=== PATIENT | female | born 1960 | race Caucasian/White ===

== ENCOUNTER 2023-09-20 17:57 | Inpatient (IN) | payer MEDICAID, SELFPAY ==
[2023-09-20] VITALS (7 sets, daily range): BP systolic 105–159; BP diastolic 54–84; PULSE 93–128; RESP 15–30; TEMP 37.4–40.1; O2SAT 89–92; BMI 33.4
--- NOTE | ~2023-09-20 | XR_ITS ---
EXAMINATION: XR CHEST CLINICAL INFORMATION: Shortness of breath. COMPARISON: None available. TECHNIQUE: 2 views of the chest were obtained. FINDINGS: Midline tracheostomy. Left IJ CVC catheter with the tip projecting at the level of the cavoatrial junction. Slightly prominent cardiomediastinal silhouette. Multiple surgical clips overlying the right axillary region. Mild diffuse interstitial prominence and central vascular engorgement. No consolidation, pleural effusion or pneumothorax. No acute osseous findings. Visualized upper abdomen is within normal limits. XR/XR chest 2V IMPRESSION: 1. Mild interstitial prominence and central vascular engorgement are nonspecific and could be associated with pulmonary edema or atypical infection. 2. No focal consolidation. 3. No pleural effusion or pneumothorax.
--- NOTE | ~2023-09-20 | CT_ITS ---
EXAMINATION: CT MASTOIDS WITHOUT IV CONTRAST INDICATION: Purulent ear discharge. COMPARISON: None available. TECHNIQUE: Multidetector CT acquisitions of the head was obtained without IV contrast. This CT examination was performed using dose optimization techniques as appropriate, variously including the following: *Automated exposure control *Adjustment of mA and/or kV according to patient size (this includes techniques or standardized protocols for targeted exams where dose is matched to indication/reason for exam; i.e. extremities or head) *Use of iterative reconstruction technique FINDINGS: There is a large right mastoid effusion without osseous erosion and the right middle ear cavity is completely opacified. There is thickening of the right bony external auditory canal and some stranding within the right periauricular soft tissues. Imaging findings suggest right-sided otitis externa and right-sided otitis media. Small left mastoid effusion. Left middle ear cavity is clear. Inner ear structures are unremarkable bilaterally. No soft tissue abscess. There is mucosal thickening within the partially imaged right sphenoid sinus. CT/CT mastoid IMPRESSION: There is a large right mastoid effusion without osseous erosion and the right middle ear cavity is completely opacified. There is thickening of the right bony external auditory canal and some stranding within the right periauricular soft tissues. Imaging findings suggest right-sided otitis externa and right-sided otitis media. No soft tissue abscess. No evidence of mastoid coalescence.
--- NOTE | ~2023-09-20 | US_ITS ---
EXAMINATION: US VENOUS WITH DOPPLER UPPER EXTREMITY, RIGHT CLINICAL INFORMATION: Chronic lymphedema of right upper extremity. Discoloration. Swelling. COMPARISON: None available. TECHNIQUE: Ultrasound of the upper extremity is performed using compression sonography and color and pulse Doppler flow with assessment of augmentation of flow. There is also imaging and Doppler assessment of the jugular and subclavian veins. Spectral analysis with color-flow imaging is performed. FINDINGS: Respiratory variation, normal compression, and augmented flow are noted throughout the right upper extremity including the axillary, brachial, cubital, and radial and ulnar veins. There is normal flow in the internal jugular and subclavian veins. There is no visible deep or superficial thrombophlebitis. If the patient's symptoms progress, a followup ultrasound in 5 -7 days might be of value to exclude proximal propagation from a nonvisualized distal arm vein. US/US venous duplex UE RT IMPRESSION: No DVT demonstrated in the right upper extremity
--- NOTE | ~2023-09-20 | US_ITS ---
EXAMINATION: US VENOUS ULTRASOUND WITH DOPPLER LOWER EXTREMITY, RIGHT CLINICAL INFORMATION: Swelling COMPARISON: None available. TECHNIQUE: Ultrasound of the deep veins is performed from the hip to the calf with compression sonography and color and pulse Doppler assessment. Spectral analysis with color-flow imaging is performed. FINDINGS: There is normal venous compression and respiratory variation and augmented flow. The visualized common femoral vein, superficial femoral vein, profunda femoral vein, popliteal vein, and the trifurcation region shows no evidence of deep venous thrombosis. There is no significant popliteal fossa cyst. US/US venous duplex LE RT IMPRESSION: No DVT demonstrated in the right lower extremity.
--- NOTE | ~2023-09-20 | CT_ITS ---
EXAMINATION: CT CHEST WITHOUT CONTRAST CLINICAL INFORMATION: Aspiration pneumonia COMPARISON: Chest radiograph dated 09/20/2023. TECHNIQUE: Multidetector volumetric CT imaging of the chest was done. Axial MIP volume rendering provided. Sagittal and coronal reformatted images were obtained. This CT examination was performed using dose optimization techniques as appropriate, variously including the following: *Automated exposure control *Adjustment of mA and/or kV according to patient size (this includes techniques or standardized protocols for targeted exams where dose is matched to indication/reason for exam; i.e. extremities or head) *Use of iterative reconstruction technique DLP: 382 mGy-cm FINDINGS: LUNGS: There is a tracheostomy tube. The trachea and central airways are patent. There is right apical pleural-parenchymal thickening. No consolidative process. MEDIASTINUM: Heart size is normal. There is no pericardial effusion. There is no mediastinal or hilar adenopathy. CORONARY ARTERY CALCIFICATION: Coronary calcifications are noted. PLEURA: There is no pleural effusion. No pleural mass or thickening. AXILLA: No lymphadenopathy. There are surgical clips within the right axilla. UPPER ABDOMEN: Unremarkable. OSSEOUS STRUCTURES: No acute osseous abnormality. CT/CT chest wo IV con IMPRESSION: There is right apical pleural-parenchymal thickening. No consolidative process. No evidence of aspiration pneumonia. Fleischner guidelines were followed.
--- NOTE | ~2023-09-20 | XR_ITS ---
EXAMINATION: XR KNEE, RIGHT CLINICAL INFORMATION: Pain, no trauma. COMPARISON: None available. TECHNIQUE: Two views of the right knee. FINDINGS: No fracture or subluxation. Severe tricompartmental degenerative osteoarthritis with joint space narrowing, subcortical sclerosis and marginal osteophytes. Coarse calcific/ossific densities in the posterior compartment of the knee. Moderate joint effusion. XR/XR knee RT 2V IMPRESSION: 1. No acute fracture or malalignment. 2. Severe tricompartmental degenerative osteoarthritis. 3. Moderate joint effusion.
--- NOTE | 2023-09-20 18:36 | ECG_ITS ---
Test Reason : TACHYCARDIA Blood Pressure : / mmHG Vent. Rate : 105 BPM Atrial Rate : 105 BPM P-R Int : 132 ms QRS Dur : 080 ms QT Int : 348 ms P-R-T Axes : 023 -23 018 degrees QTc Int : 459 ms Sinus tachycardia Low voltage QRS Possible Inferior infarct , age undetermined Abnormal ECG No previous ECGs available Referred By: Alina Pack Electronically Signed By:DAVONTE YU MD
--- NOTE | 2023-09-20 19:00 | ED.GENADULT ---
HPI - General Adult General Chief complaint: General Medical Stated complaint: Cellulitis/Difficulty breathing Time Seen by Provider: 09/20/23 18:30 Source: patient and family Mode of arrival: ambulatory Limitations: no limitations History of Present Illness HPI narrative: This is a 63-year-old female who has a history of breast cancer with metastatic disease that was diagnosed in 2007 and treated at [facility] with surgical resection, chemotherapy and radiation who presents to the ER today with right arm swelling and redness as well as fever since yesterday. Patient reports that she has a chronic right breast wound from radiation. She does go to the [facility] at [facility] for care. She does have chronic lymphedema of the right upper extremity and has had subsequent cellulitis requiring admission with IV antibiotics. Yesterday she noticed increasing pain and swelling and redness to the right upper extremity and had chills last evening. This morning she had fever prompting her daughter to bring her in to be seen. She also complaining of right knee pain and swelling with she has had intermittently for several months with no known injury or trauma. She believes she is on orthopedic doctor who recommended a knee replacement but this was delayed due to her chronic medical conditions. She does have chronic shortness of breath but denies any chest pain or cough associated with this. 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 Related Data Home Medications Medication Instructions Recorded Confirmed albuterol sulfate 2.5 mg/3 mL 2.5 mg inhalation TID 09/20/23 09/20/23 (0.083 %) solution for nebulization arformoterol 15 mcg/2 mL solution 2 ml inhalation BID 09/20/23 09/20/23 for nebulization budesonide 0.5 mg/2 mL suspension 0.5 mg inhalation BID 09/20/23 09/20/23 for nebulization clonazepam 0.5 mg tablet 0.5 mg PO TID PRN anxiety 09/20/23 09/20/23 duloxetine 30 mg capsule,delayed 30 mg PO DAILY 09/20/23 09/20/23 release duloxetine 60 mg capsule,delayed 60 mg PO DAILY 09/20/23 09/20/23 release levothyroxine 100 mcg tablet 100 mcg PO DAILY 09/20/23 09/20/23 morphine 100 mg tablet,extended 100 mg PO BID 09/20/23 09/20/23 release omeprazole 20 mg capsule,delayed 20 mg PO DAILY 09/20/23 09/20/23 release oxycodone 10 mg tablet 20 mg PO Q4H PRN pain 09/20/23 09/20/23 silver sulfadiazine 1 % topical 1 appl topical DAILY 09/20/23 09/20/23 cream trazodone 150 mg tablet 150 mg PO BEDTIME 09/20/23 09/20/23 Allergies Allergy/AdvReac Type Severity Reaction Status Date / Time No Known Allergies Allergy Verified 09/20/23 18:05 Review of Systems Review of Systems: Yes all other systems are reviewed and are negative Constitutional: Constitutional: Reports no additional constitutional complaints, Reports body ache(s), Reports chills, Reports fever(s), Denies headache(s) and Denies weakness Eyes: Eyes: Reports no additional eye complaints and Denies change in vision ENT: Reports system reviewed and no additional complaints, except as documented, Denies dizziness, Denies headache(s), Denies nasal congestion, Denies nasal discharge and Denies neck pain Cardiovascular: Cardiovascular: Reports no additional cardiovascular complaints, Denies chest pain, Denies leg edema and Reports dyspnea Respiratory: Respiratory: Reports no additional respiratory complaints, Denies cough and Reports dyspnea Gastrointestinal: Gastrointestinal: Reports no additional gastrointestinal complaints, Denies abdominal pain, Denies diarrhea, Denies nausea and Denies vomiting Genitourinary: Genitourinary: Reports no additional female genitourinary complaints and Denies urinary incontinence Musculoskeletal: Musculoskeletal: Reports no additional musculoskeletal complaints, Denies back pain, Reports arthralgias, Reports joint swelling, Reports limited range of motion, Denies neck pain, Denies numbness and Denies tingling Integumentary/Breasts: Skin/Breast: Reports system reviewed and no additional complaints, except as docu and Reports rash Neurologic: Reports system reviewed and no additional complaints, except as documented, Denies Abnormal speech present, Denies dizziness, Denies headache(s), Denies numbness, Denies tingling and Denies weakness PMFSH Past Medical History Attestation statement: The following information was validated with the patient. Source: old records reviewed and nursing notes reviewed Social History Social History Smoked in Last 30 Days: No Use of substances other than those prescribed or required for medical reasons: No Advance Directives: No Advance Directives Information Provided: No Patient : No Physical Exam ED Vital Signs: Vital Signs - 24 hr 09/20/23 18:00 09/20/23 18:34 09/20/23 19:59 Temperature 103.0 F H 104.2 F H 102.7 F H Pulse Rate 128 H 120 H 109 H Respiratory Rate 24 H 30 H 21 H Blood Pressure 159/84 H 118/55 L Pulse Oximetry 92 89 L Oxygen Delivery Method Room Air Room Air 09/20/23 21:05 Temperature Pulse Rate 103 H Respiratory Rate 15 Blood Pressure 105/57 L Pulse Oximetry 92 Oxygen Delivery Method Room Air BMI result Body Mass Index 33.4 Const General: cooperative, healthy appearing, comfortable and no acute distress Orientation/consciousness: patient oriented x3 Limitations: no limitations HENMT Head: Yes normal to inspection Ears: hearing grossly normal bilaterally General nose exam: Normal external nose present Face and sinus: Yes normal facial exam Mouth: Normal oral and palatal mucosa present Throat: Yes posterior oropharynx normal Eyes General: appearance normal, both eyes and all related structures Pupils: Equal, round and reactive pupils present Neck Neck: Yes normal visual inspection Chest Chest/axillae images: 1. There is a wound seen but the edges are pink and there appears to be no infection in the wound bed. Resp Effort & Inspection: normal respiratory effort Auscultation: clear to auscultation bilaterally Cardio Rate: regular rate Rhythm: regular rhythm Peripheral pulses: Peripheral pulses 2+ throughout GI Inspection: Yes normal to inspection Palpation (GI): Soft to palpation and nontender Auscultation: normal bowel sounds Back/Spine/Pelvis Thoracic/Lumbar Spine: thoracic and lumbar spine normal to inspection Skin General skin exam: no rashes or lesions noted Neuro General: patient oriented x3, no focal motor deficits and normal sensation to monofilament Cranial nerves: Yes Equal, round and reactive pupils present Cognition (Neuro): normal cognition Speech: No Abnormal speech present Gait exam (Neuro): Normal gait present Motor exam (neuro): 5/5 motor strength present throughout Extrem Other: The entire right upper extremity has warmth, swelling, erythema. Normal distal sensation. Normal radial and ulnar pulses. Compartments are soft and compressible. Normal active and passive range of motion of the right upper extremity There is swelling to the right anterior knee. There is no posterior swelling. There is no calf swelling or pain. There are normal DP and PT pulses. Normal sensation. Normal active and passive range of motion of the right lower extremity. General: Yes normal to inspection Medications Administered Discontinued Medications Generic Name Dose Route Start Last Admin Trade Name Tati PRN Reason Stop Dose Admin Acetaminophen 975 mg 09/20/23 18:42 09/20/23 19:01 Acetaminophen 325 Mg Tablet PO 09/20/23 18:43 975 mg ONCE ONE Administration Hydromorphone HCl 0.5 mg 09/20/23 18:42 09/20/23 19:03 Hydromorphone Hcl 0.5 Mg/0.5 Ml Syringe IVPUSH 09/20/23 18:43 0.5 mg ONCE ONE Administration Protocol Sodium Chloride 1,000 mls @ 999 mls/hr 09/20/23 18:42 09/20/23 21:05 Ns IV 09/20/23 19:42 Infused .Q1H1M STA Infusion Piperacillin Sod/Tazobactam 50 mls @ 100 mls/hr 09/20/23 18:42 09/20/23 20:03 Sod 3.375 gm/ Sodium Chloride IV 09/20/23 19:11 Infused ONCE ONE Infusion Vancomycin HCl 2,000 mg in 500 mls @ 250 mls/hr 09/20/23 18:42 09/20/23 20:03 Vancomycin/Ns IV 09/20/23 20:41 250 mls/hr ONCE ONE Administration Medical Decision Making Medical Decision Making [facility] Narrative: 1840-This is a 63-year-old female who has a history of breast cancer with metastatic disease that was diagnosed in 2007 and treated at [facility] with surgical resection, chemotherapy and radiation who presents to the ER today with right arm swelling and redness as well as fever since yesterday. Patient reports that she has a chronic right breast wound from radiation. She does go to the Wound Center at [facility] for care. She does have chronic lymphedema of the right upper extremity and has had subsequent cellulitis requiring admission with IV antibiotics. Yesterday she noticed increasing pain and swelling and redness to the right upper extremity and had chills last evening. This morning she had fever prompting her daughter to bring her in to be seen. She also complaining of right knee pain and swelling with she has had intermittently for several months with no known injury or trauma. She believes she is on orthopedic doctor who recommended a knee replacement but this was delayed due to her chronic medical conditions. She does have chronic shortness of breath but denies any chest pain or cough associated with this. 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 Normal distal sensation. Normal radial and ulnar pulses. Compartments are soft and compressible. Normal active and passive range of motion of the right upper extremity There is swelling to the right anterior knee. There is no posterior swelling. There is no calf swelling or pain. There are normal DP and PT pulses. Normal sensation. Normal active and passive range of motion of the right lower extremity. On arrival patient is febrile and tachycardic. At this time infection is suspected. Labs including blood cultures and lactic acid are ordered, will need x-ray/ultrasound of right lower extremity. May need advanced imaging of right upper extremity. Will order antibiotic, fluids and APAP Differential Diagnosis Differential Diagnoses: The differential diagnosis associated with the presentation includes Cellulitis DVT Abscess Low suspicion for necrotizing fasciitis, compartment since Admission/Observation Consideration of admission/observation: Escalation of care including admission/observation considered Consult Healthcare Provider Management of the patient was discussed with: Hospitalist Dr Newman/Carolina Jacques-requesting CXR, CT chest w/o which they will order and review findings Lab Data MDM Lab Attestation statement: I reviewed the patient's lab results. 09/20/23 18:54 09/20/23 18:54 Labs: Lab Results 09/20/23 09/20/23 Range/Units 18:54 20:42 WBC 6.9 (4.8-10.8) X10*3/uL RBC 3.26 L (4.20-5.50) X10*6/uL Hgb 8.1 L (12.0-16.0) g/dl Hct 27.5 L (37.0-47.0) % MCV 84.4 (80.0-98.0) fL MCH 24.8 L (27.0-33.0) pg MCHC 29.5 L (31.0-35.0) g/dl RDW 17.7 H (11.0-16.0) % Plt Count 243 (160-400) X10*3/uL MPV 10.5 (9.4-12.3) fL Immature Gran % (Auto) 1.3 H (0.0-0.4) % Neut % (Auto) 92.9 H (45-73) % Lymph % (Auto) 3.2 L (20-40) % Power % (Auto) 2.0 (2-11) % Eos % (Auto) 0.3 (0-4) % Baso % (Auto) 0.3 (0-2) % Lymph # (Auto) 0.2 L (1.2-4.9) X10*3/uL Power # (Auto) 0.1 (0.1-1.2) X10*3/uL Eos # (Auto) 0.0 (0.0-0.4) X10*3/uL Baso # (Auto) 0.0 (0.0-0.2) X10*3/uL Abs Immat Gran (auto) 0.09 H (0.00-0.03) X10*3/uL Absolute Neuts (auto) 6.4 (2.0-8.3) x10*3/uL Absolute Nucleated RBC 0.000 (0.0-0.012) X10*3/uL Nucleated RBC % (auto) 0.0 (0.0-0.2) /100WBC Smear Tech's Comments VERIFIED PT 13.8 H (11.1-13.3) SEC INR 1.1 (0.9-1.1) Sodium 134 L (135-145) mmol/L Potassium 3.9 (3.3-5.1) mmol/L Chloride 103 (96-108) mmol/L Carbon Dioxide 22 (22-29) mmol/L Anion Gap 13 (12-20) BUN 13 (9-16) mg/dL Creatinine 1.35 (0.5-1.4) mg/dL Estim Creat Clear Calc 42.0 Estimated GFR 40 Random Glucose 114 (60-115) mg/dL Lactic Acid 2.1 H* 1.9 (0.5-2.0) mmol/L Calcium 8.6 (8.4-10.2) mg/dL Magnesium 1.7 (1.6-2.6) mg/dL Total Bilirubin 0.3 (0.0-1.0) mg/dL Direct Bilirubin 0.1 (0.0-0.5) mg/dL AST 13 (5-31) U/L ALT 6 (0-31) U/L Alkaline Phosphatase 106 (39-117) U/L Total Creatine Kinase 42 (26-140) U/L Troponin I High Sens 5.3 (<3.5-17.0) ng/L B-Natriuretic Peptide 90 (<100) pg/mL Total Protein 6.9 (6.5-8.0) g/dL Albumin 3.1 L (3.5-5.0) g/dL Independent Interpretation I performed an independent interpretation of an: EKG, Plain X-Ray and Ultrasound Interpretation: I independently reviewed the EKG which shows sinus tachycardia with a rate of 105, normal OK, normal QRS I independently reviewed the x-ray, US Radiology Impression Discussion of test interpretation with radiology: I have reviewed the radiologist's reading. Radiologist Impression: [place] [id number] Ultrasound Report Signed Patient: Harper Goode MR#: [id number] : 1960 Acct:[id number] Age/Sex: 63 / F ADM Date: 09/20/23 Loc: .ED Attending Dr: Ordering Physician: Alina Beck NP Date of Service: 09/20/23 Procedure(s): US venous duplex LE RT Accession Number(s): [id number] cc: RADAH ACEVES DO; Alina Beck NP~ EXAMINATION: US VENOUS ULTRASOUND WITH DOPPLER LOWER EXTREMITY, RIGHT CLINICAL INFORMATION: Swelling COMPARISON: None available. TECHNIQUE: Ultrasound of the deep veins is performed from the hip to the calf with compression sonography and color and pulse Doppler assessment. Spectral analysis with color-flow imaging is performed. FINDINGS: There is normal venous compression and respiratory variation and augmented flow. The visualized common femoral vein, superficial femoral vein, profunda femoral vein, popliteal vein, and the trifurcation region shows no evidence of deep venous thrombosis. There is no significant popliteal fossa cyst. US/US venous duplex LE RT IMPRESSION: No DVT demonstrated in the right lower extremity. [address] [address] XRay Report Signed Patient: Harper Goode MR#: [id number] : 1960 Acct:[id number] Age/Sex: 63 / F ADM Date: 09/20/23 Loc: HO.ED Attending Dr: Ordering Physician: Alina Beck NP Date of Service: 09/20/23 Procedure(s): XR chest 2V Accession Number(s): [id number] cc: RADHA ACEVES DO; Alina Beck SENIOR BUSINESS ANALYST~ EXAMINATION: XR CHEST CLINICAL INFORMATION: Shortness of breath. COMPARISON: None available. TECHNIQUE: 2 views of the chest were obtained. FINDINGS: Midline tracheostomy. Left IJ CVC catheter with the tip projecting at the level of the cavoatrial junction. Slightly prominent cardiomediastinal silhouette. Multiple surgical clips overlying the right axillary region. Mild diffuse interstitial prominence and central vascular engorgement. No consolidation, pleural effusion or pneumothorax. No acute osseous findings. Visualized upper abdomen is within normal limits. XR/XR chest 2V IMPRESSION: 1. Mild interstitial prominence and central vascular engorgement are nonspecific and could be associated with pulmonary edema or atypical infection. 2. No focal consolidation. 3. No pleural effusion or pneumothorax. [address] [address] XRay Report Signed Patient: Harper Goode MR#: [id number] : 1960 Acct:[id number] Age/Sex: 63 / F ADM Date: 09/20/23 Loc: HO.ED Attending Dr: Ordering Physician: Alina Beck NP Date of Service: 09/20/23 Procedure(s): XR knee RT 2V Accession Number(s): [id number] cc: RADHA ACEVES DO; Alina Beck SENIOR BUSINESS ANALYST~ EXAMINATION: XR KNEE, RIGHT CLINICAL INFORMATION: Pain, no trauma. COMPARISON: None available. TECHNIQUE: Two views of the right knee. FINDINGS: No fracture or subluxation. Severe tricompartmental degenerative osteoarthritis with joint space narrowing, subcortical sclerosis and marginal osteophytes. Coarse calcific/ossific densities in the posterior compartment of the knee. Moderate joint effusion. XR/XR knee RT 2V IMPRESSION: 1. No acute fracture or malalignment. 2. Severe tricompartmental degenerative osteoarthritis. 3. Moderate joint effusion. [address] [address] [address] Scan Report Signed Patient: Harper Goode MR#: [id number] : 1960 Acct:[id number] Age/Sex: 63 / F ADM Date: 09/20/23 Loc: HO.ED Attending Dr: Ordering Physician: Windy Newman MD Date of Service: 09/20/23 Procedure(s): CT chest wo IV con Accession Number(s): [id number] cc: RADHA ACEVES DO; Windy Newman MD~ EXAMINATION: CT CHEST WITHOUT CONTRAST CLINICAL INFORMATION: Aspiration pneumonia COMPARISON: Chest radiograph dated 09/20/2023. TECHNIQUE: Multidetector volumetric CT imaging of the chest was done. Axial MIP volume rendering provided. Sagittal and coronal reformatted images were obtained. This CT examination was performed using dose optimization techniques as appropriate, variously including the following: *Automated exposure control *Adjustment of mA and/or kV according to patient size (this includes techniques or standardized protocols for targeted exams where dose is matched to indication/reason for exam; i.e. extremities or head) *Use of iterative reconstruction technique DLP: 382 mGy-cm FINDINGS: LUNGS: There is a tracheostomy tube. The trachea and central airways are patent. There is right apical pleural-parenchymal thickening. No consolidative process. MEDIASTINUM: Heart size is normal. There is no pericardial effusion. There is no mediastinal or hilar adenopathy. CORONARY ARTERY CALCIFICATION: Coronary calcifications are noted. PLEURA: There is no pleural effusion. No pleural mass or thickening. AXILLA: No lymphadenopathy. There are surgical clips within the right axilla. UPPER ABDOMEN: Unremarkable. OSSEOUS STRUCTURES: No acute osseous abnormality. CT/CT chest wo IV con IMPRESSION: There is right apical pleural-parenchymal thickening. No consolidative process. No evidence of aspiration pneumonia. Fleischner guidelines were followed. Independent Historian Clinical information obtained from an independent historian. History obtained from or confirmed by: Other (daughter ) Critical Care Time Critical Care Time Critical Care Time: Yes Total Critical Care Time: 90 Attestation: Discussion with hospitalist for admission Discharge Plan Discharge Clinical Impression: Cellulitis of arm, right, Anemia, Elevated lactic acid level Patient Disposition: Admitted As Inpatient
[2023-09-20] MEDS: Acetaminophen 325 MG TABLET 975 MG PO (19:01)
[2023-09-20] MEDS: HYDROmorphone HCl 0.5 MG/0.5 ML SYRINGE IVPUSH (19:03)
[2023-09-20] MEDS: 0.9 % Sodium Chloride 1,000 ML 999 ML IV (19:05)
[2023-09-20] MEDS: Piperacillin Sodium/Tazobactam 3.375 GM in 0.9 % Sodium Chloride 50 ML IV (19:05)
[2023-09-20 19:16] LABS: Basophils Percent Auto 0.3 % (0-2); Eosinophils Percent Auto 0.3 % (0-4); Hematocrit 27.5 % (37.0-47.0); Hemoglobin 8.1 g/dl (12.0-16.0); Imm Gran Abs Auto 0.09 X10*3/uL (0.00-0.03); Imm Gran Pct Auto 1.3 % (0.0-0.4); Lymphocytes Absolute Auto 0.2 X10*3/uL (1.2-4.9); Lymphocytes Percent Auto 3.2 % (20-40); MANUAL DIFF FLAG SCAN; Mean Corpuscular HGB Conc 29.5 g/dl (31.0-35.0); Mean Corpuscular Hemoglobin 24.8 pg (27.0-33.0); Mean Corpuscular Volume 84.4 fL (80.0-98.0); Mean Platelet Volume 10.5 fL (9.4-12.3); Monocytes Absolute Auto 0.1 X10*3/uL (0.1-1.2); Neutrophils Absolute Auto 6.4 x10*3/uL (2.0-8.3); Neutrophils Percent Auto 92.9 % (45-73); Platelet Count 243 X10*3/uL (160-400); Red Blood Count 3.26 X10*6/uL (4.20-5.50); Red Cell Distribution Width 17.7 % (11.0-16.0); SCAN SMEAR FLAG 1; White Blood Count 6.9 X10*3/uL (4.8-10.8)
[2023-09-20 19:20] LABS: INTERNATIONAL NORM RATIO 1.1 (0.9-1.1); Prothrombin Time 13.8 SEC (11.1-13.3)
[2023-09-20 19:21] LABS: Alanine Aminotransferase 6 U/L (0-31); Albumin Level 3.1 g/dL (3.5-5.0); Alkaline Phosphatase 106 U/L (39-117); Anion Gap 13 (12-20); Aspartate Amino Transferase 13 U/L (5-31); Bilirubin Direct 0.1 mg/dL (0.0-0.5); Bilirubin Total 0.3 mg/dL (0.0-1.0); Blood Urea Nitrogen 13 mg/dL (9-16); Calcium 8.6 mg/dL (8.4-10.2); Carbon Dioxide 22 mmol/L (22-29); Chloride 103 mmol/L (96-108); Estimated Glomerular Filt Rate 40; Glucose Random 114 mg/dL (60-115); Magnesium 1.7 mg/dL (1.6-2.6); Potassium 3.9 mmol/L (3.3-5.1); Sodium 134 mmol/L (135-145); Total Protein 6.9 g/dL (6.5-8.0)
[2023-09-20 19:28] LABS: Troponin-I High Sensitivity 5.3 ng/L (<3.5-17.0)
[2023-09-20 19:31] LABS: Lactic Acid 2.1 mmol/L (0.5-2.0)
[2023-09-20 19:45] LABS: SLIDE REVIEW VERIFIED
[2023-09-20] MEDS: vancomycin/NS 2,000 MG/500 ML PLAST..BAG 250 MG IV (20:03)
--- NOTE | 2023-09-20 20:10 | PC.NURSE ---
Assumed care of the pt at 1900. Pt resting comfortably in bed. Labs sent and 20g IV in the left forearm. Pt is A&Ox4, GCS 15, with warm skin. Pt given tylenol for fever with slight improvement in temperature. Pt has a trach that requires frequent clears from pt, occasionally resulting in decreased O2. Plan is for pt to be admitted for sepsis/cellulitis of right arm.
[2023-09-20 20:59] LABS: Lactic Acid 1.9 mmol/L (0.5-2.0)
[2023-09-20 21:03] LABS: Reflex Lactate? Lactic Acid Added
[2023-09-20 21:15] LABS: B Type Natriuretic Peptide 90 pg/mL (<100)
--- NOTE | 2023-09-20 21:20 | PHA.MEDREC ---
Pharmacy Consult ? Medication Reconciliation Pharmacy has completed the medication reconciliation.
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
[2023-09-20] MEDS: Albuterol Sulfate (0.083%) 2.5 MG/3 ML VIAL.NEB INHALE (22:15)
[2023-09-20] MEDS: Budesonide 0.5 MG/2 ML AMPUL.NEB INHALE (22:16)
--- NOTE | 2023-09-20 22:33 | PHA.PROG ---
Admission Date/Time: September 20, 2023 21:53 Indication: OTHER Weight in k.286 kg Adjusted body weight in Kg: [place] body weight in Kg: Obesity Dosing Indication % IBW: Serum Creatinine - Last 168 Hours 09/20/23 18:54 Creatinine 1.35 Estimated CrCl and GFR - Last 168 Hours 09/20/23 18:54 Estim Creat Clear Calc 42.0 Estimated GFR 40 Vancomycin Loading Dose: 2000 MG Current Vancomycin Dosing Regimen: 1250 MG Q24H Vancomycin Monitoring using AUC goal of 400 - 600 range with trough as surrogate marker: AUC 550, TROUGH 15.5 Date and Time for next Vancomycin Level to be drawn: 09/21 @1900 Pharmacist Comments on Vancomycin Plan: Vancomycin dosing will take advantage of [employer] as a clinical decision support tool that uses Bayesian modeling to calculate individual patient's pharmacokinetic parameters and forecast the patient's drug concentration time course with the target goal AUC 24 range of 400 - 600 mg/L/hr.
[2023-09-20] MEDS: Enoxaparin Sodium 40 MG/0.4 ML SYRINGE SUBCUT (22:40)
[2023-09-20] MEDS: traZODone HCL 50 MG TABLET 150 MG PO (22:41)
[2023-09-20] MEDS: Morphine Sulfate ER 30 MG TABLET.ER 90 MG PO (22:41)
[2023-09-20 23:08] LABS: ~Lactic Acid-LAB USE ONLY 1.1 mmol/L (0.5-2.0)
[2023-09-21] VITALS (7 sets, daily range): BP systolic 98–142; BP diastolic 53–88; PULSE 88–107; RESP 18–20; TEMP 36.4–37.2; O2SAT 93–99; BMI 35.8
[2023-09-21] MEDS: 0.9 % Sodium Chloride Flush 3 ML SYRINGE IVFLUSH ×4 (00:05→21:41)
[2023-09-21] MEDS: Piperacillin Sodium/Tazobactam 3.375 GM in 0.9 % Sodium Chloride 50 ML IV ×4 (03:21→20:07)
[2023-09-21 03:27] LABS: Influenza A PCR NEGATIVE (Negative); Influenza B PCR NEGATIVE (Negative); Resp Syncy Virus RNA Qual PCR NEGATIVE (Negative); SARS COV2 PCR INHOUSE NEGATIVE (Negative)
[2023-09-21] MEDS: Levothyroxine Sodium 100 MCG TABLET PO (05:43)
[2023-09-21] MEDS: Omeprazole 20 MG CAPSULE.DR PO (06:01)
[2023-09-21] MEDS: oxyCODONE HCl Immed Release 5 MG TABLET 20 MG PO ×2 (06:01→14:45)
[2023-09-21 06:05] LABS: MANUAL DIFF FLAG NO
[2023-09-21 06:31] LABS: Anion Gap 11 (12-20); Blood Urea Nitrogen 11 mg/dL (9-16); Calcium 8.1 mg/dL (8.4-10.2); Carbon Dioxide 20 mmol/L (22-29); Chloride 108 mmol/L (96-108); Creatinine Clr Calc Pharmacy 51.1; Estimated Glomerular Filt Rate 48; Glucose Random 95 mg/dL (60-115); Potassium 4.1 mmol/L (3.3-5.1); Sodium 135 mmol/L (135-145)
[2023-09-21 06:56] LABS: Basophils Percent Auto 0.2 % (0-2); Eosinophils Percent Auto 0.2 % (0-4); Hemoglobin 7.5 g/dl (12.0-16.0); Imm Gran Abs Auto 0.02 X10*3/uL (0.00-0.03); Imm Gran Pct Auto 0.5 % (0.0-0.4); Lymphocytes Absolute Auto 0.3 X10*3/uL (1.2-4.9); Mean Corpuscular HGB Conc 28.8 g/dl (31.0-35.0); Mean Corpuscular Hemoglobin 24.8 pg (27.0-33.0); Mean Corpuscular Volume 85.8 fL (80.0-98.0); Monocytes Absolute Auto 0.2 X10*3/uL (0.1-1.2); Monocytes Percent Auto 5.8 % (2-11); Neutrophils Absolute Auto 3.5 x10*3/uL (2.0-8.3); Neutrophils Percent Auto 85.3 % (45-73); Platelet Count 203 X10*3/uL (160-400); Red Blood Count 3.03 X10*6/uL (4.20-5.50); Red Cell Distribution Width 18.1 % (11.0-16.0); White Blood Count 4.1 X10*3/uL (4.8-10.8)
--- NOTE | 2023-09-21 07:26 | HO.PM.IMPN ---
Subjective Subjective Date of Service: 09/21/23 Interval History: f/u on sepsis d/t cellulitis and otitis media/externa redness is better, earahe is better, no fever Physical Exam Vital Signs: Vital Signs: Last Vital Signs Temp 99.0 F 09/21/23 03:55 Pulse 90 09/21/23 03:55 Resp 20 09/21/23 03:55 BP 109/71 09/21/23 03:55 Pulse Ox 94 09/21/23 03:55 O2 Del Method Nasal Cannula 09/21/23 03:55 O2 Flow Rate 2 09/21/23 03:55 BMI result Body Mass Index 35.8 Constitutional - Awake and Alert, No apparent distress Eyes - PERRLA, EOMI Ear - Tednerness with manipulation of the tragus/pinna R ear with copious purulent drainage R canal with limited visual of the TM Cardiovascular - S1S2, RRR, No edema Respiratory - Normal lung expansion, Normal respiratory effort, No respiratory distress, scattered expiratory wheezes Chest - s/p bilateral mastectomy. Chronic wound R axilla with pink edges, clean appearing without any active drainage Gastrointestinal - NT / ND; +BS; No rebound or guarding Extremities - no calf tenderness bilaterally, no swelling Skin - Warm/Dry Neurological - Alert & oriented x3 Psychological - Appropriate affect Objective Data Active Medications Acetaminophen (Acetaminophen 325 Mg Tablet) 650 mg PO Q6H PRN PRN Reason: Pain, Mild (Pain Scale 1-3) Albuterol Sulfate (Albuterol Sulfate (0.083%) 2.5 Mg/3 Ml Vial.Neb) 2.5 mg INHALE TID [facility] Last Admin: 09/20/23 22:15 Dose: 2.5 mg Documented By: BERENICE Budesonide (Budesonide 0.5 Mg/2 Ml Ampul.Neb) 0.5 mg INHALE BID [facility] Last Admin: 09/20/23 22:16 Dose: 0.5 mg Documented By: BERENICE Clonazepam (Clonazepam 0.5 Mg Tablet) 0.5 mg PO TID PRN PRN Reason: anxiety Duloxetine HCl (Duloxetine Hcl 30 Mg Capsule.) 30 mg PO DAILY [facility] Duloxetine HCl (Duloxetine Hcl 60 Mg Capsule.) 60 mg PO DAILY [facility] Enoxaparin Sodium (Enoxaparin Sodium 40 Mg/0.4 Ml Syringe) 40 mg SUBCUT Q24H [facility] Last Admin: 09/20/23 22:40 Dose: 40 mg Documented By: SALOME Vancomycin HCl 1,250 mg/ (Sodium Chloride) 250 mls @ 166.667 mls/hr IV Q24H [facility] Piperacillin Sod/Tazobactam (Sod 3.375 gm/ Sodium Chloride) 50 mls @ 100 mls/hr IV Q6H [facility] Last Infusion: 09/21/23 03:51 Dose: Infused Documented By: RITA Levothyroxine Sodium (Levothyroxine Sodium 100 Mcg Tablet) 100 mcg PO DAILY@0600 [facility] Last Admin: 09/21/23 05:43 Dose: 100 mcg Documented By: RITA Morphine Sulfate (Morphine Sulfate Er 30 Mg Tablet.Er) 90 mg PO BID [facility] Last Admin: 09/20/23 22:41 Dose: 90 mg Documented By: SALOME Neomycin/Polymyxin/Hydrocortisone (Neomycin/Polymyxin/Hc Otic Priti 10 Ml Drpbtl) 3 drop EAR-RIGHT QID [facility] Last Admin: 09/20/23 22:41 Dose: Not Given Documented By: SALOME Non-Admin Reason: Med Not Available Non-Formulary Medication (Arformoterol) 2 ml INHALE BID [facility] Omeprazole (Omeprazole 20 Mg Capsule.Dr) 20 mg PO DAILY@0630 [facility] Last Admin: 09/21/23 06:01 Dose: 20 mg Documented By: RITA Ondansetron HCl (Ondansetron Hcl 4 Mg/2 Ml Vial) 4 mg IVPUSH Q8H PRN PRN Reason: Nausea and Vomiting Oxycodone HCl (Oxycodone Hcl Immed Release 5 Mg Tablet) 20 mg PO Q4H PRN PRN Reason: Pain, Severe (Pain Scale 7-10) Last Admin: 09/21/23 06:01 Dose: 20 mg Documented By: RITA Pharmacy Consult (Consult Rx Vancomycin Dosing) 1 each MISCELLANE DAILY PRN PRN Reason: Consult order Senna (Sennosides 8.6 Mg Tablet) 17.2 mg PO BEDTIME PRN PRN Reason: Constipation Silver Sulfadiazine (Silver Sulfadiazine 1 % Cream 20 Gm Tube) 1 appl TOPICAL DAILY [facility] Sodium Chloride (0.9 % Sodium Chloride Flush 3 Ml Syringe) 3 ml IVFLUSH QSHIFT [facility] Last Admin: 09/21/23 00:05 Dose: 3 ml Documented By: SALOME Trazodone HCl (Trazodone Hcl 50 Mg Tablet) 150 mg PO BEDTIME [facility] Last Admin: 09/20/23 22:41 Dose: 150 mg Documented By: SALOME Labs 09/21/23 05:38 09/21/23 05:38 Labs: Laboratory Results - last 24 hr 09/20/23 09/20/23 09/20/23 18:54 20:42 22:52 MCV 84.4 MCH 24.8 L MCHC 29.5 L RDW 17.7 H Plt Count 243 MPV 10.5 Immature Gran % (Auto) 1.3 H Neut % (Auto) 92.9 H Lymph % (Auto) 3.2 L [place] % (Auto) 2.0 Eos % (Auto) 0.3 Baso % (Auto) 0.3 Lymph # (Auto) 0.2 L [place] # (Auto) 0.1 Eos # (Auto) 0.0 Baso # (Auto) 0.0 Abs Immat Gran (auto) 0.09 H Absolute Neuts (auto) 6.4 Absolute Nucleated RBC 0.000 Nucleated RBC % (auto) 0.0 Smear Tech's Comments VERIFIED PT 13.8 H INR 1.1 Anion Gap 13 Estim Creat Clear Calc 42.0 Estimated GFR 40 Random Glucose 114 Lactic Acid 2.1 H* 1.9 Lactic Acid F/U @ 2Hr 1.1 Calcium 8.6 Magnesium 1.7 Total Bilirubin 0.3 Direct Bilirubin 0.1 AST 13 ALT 6 Alkaline Phosphatase 106 Total Creatine Kinase 42 Troponin I High Sens 5.3 B-Natriuretic Peptide 90 Total Protein 6.9 Albumin 3.1 L Influenza Type A (PCR) Influenza Type B (PCR) RSV RNA Qual (PCR) SARS-CoV-2 RNA (RT-PCR) 09/21/23 09/21/23 02:45 05:38 MCV 85.8 MCH 24.8 L MCHC 28.8 L RDW 18.1 H Plt Count 203 MPV 11.0 Immature Gran % (Auto) 0.5 H Neut % (Auto) 85.3 H Lymph % (Auto) 8.0 L [place] % (Auto) 5.8 Eos % (Auto) 0.2 Baso % (Auto) 0.2 Lymph # (Auto) 0.3 L [place] # (Auto) 0.2 Eos # (Auto) 0.0 Baso # (Auto) 0.0 Abs Immat Gran (auto) 0.02 Absolute Neuts (auto) 3.5 Absolute Nucleated RBC 0.000 Nucleated RBC % (auto) 0.0 Smear Tech's Comments PT INR Anion Gap 11 L Estim Creat Clear Calc 51.1 Estimated GFR 48 Random Glucose 95 Lactic Acid Lactic Acid F/U @ 2Hr Calcium 8.1 L Magnesium Total Bilirubin Direct Bilirubin AST ALT Alkaline Phosphatase Total Creatine Kinase Troponin I High Sens B-Natriuretic Peptide Total Protein Albumin Influenza Type A (PCR) NEGATIVE Influenza Type B (PCR) NEGATIVE RSV RNA Qual (PCR) NEGATIVE SARS-CoV-2 RNA (RT-PCR) NEGATIVE Assessment and Plan (1) Severe sepsis: Status: Acute (2) Acute otitis externa: Status: Acute (3) Acute otitis media: Status: Acute Plan 63-year-old female who has a history of breast cancer with metastatic disease (diagnosed in 2007 and treated at [facility] with surgical resection, chemotherapy and radiation) with 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 (Initial BP elevated likely r/t pain not severe sepsis) No septic shock or other end-organ damage -IV vancomycin and Zosyn 09/19 -follow CBC, cultures # acute cellulitis of the right upper extremity -venous duplex negative for DVT -IV vancomycin Zosyn (initiated 09/19) -ID consult -follow CBC, cultures # acute otitis media/otitis externa with history of chronic suppurative otitis media with history of irradiated tympanoplasty -IV vancomycin/Zosyn, topical corticosporin (initiated 09/19) -reports previously has required copious flushing of R canal- outpt follow up with ENT unless symptoms not improving #CKD stage 3 -renal function at baseline #Normocytic anemia- unclear chronicity, suspect chronic r/t chronic disease -h/h above transfusion threshold -follow CBC # hypertension, BP nl -not on antihypertensives # chronic pain disorder -continue MS Contin, oxycodone p.r.n. # chronic burn/Wound right axilla s/p radiation therapy -apply Silvadene to wound daily and cover with dry dressing -wound RN consult # hypothyroidism -continue Synthroid # GERD -PPI # COPD -no acute exacerbation -continue maintenance inhalers, albuterol p.r.n. DVT prophylaxis-Lovenox Full code need for inpatient: for management of severe sepsis secondary to extensive cellulitis of the right upper extremity encompassing nearly 100% of the extremity as well as severe right-sided otitis media/externa with copious purulent drainage requiring broad-spectrum IV antibiotics as well as close monitoring Quality Stroke Does the patient have a stroke diagnosis?: No VTE Prior VTE?: No VTE Risk Level:: Medical - moderate - high VTE Device Contraindication: Treatment Not Indicated VTE Drug Contraindication: N/A - Med Ordered
--- NOTE | 2023-09-21 08:04 | HE.PHANOTE ---
Vancomcyin Dosing Slight improvement in SCr. Level is still predict the be therapeutic. Continue current regimen, level shanell 09/21 @ [id number]. Deep MorrisD
[2023-09-21] MEDS: Budesonide 0.5 MG/2 ML AMPUL.NEB INHALE (08:25)
[2023-09-21] MEDS: Albuterol Sulfate (0.083%) 2.5 MG/3 ML VIAL.NEB INHALE ×2 (08:25→15:22)
[2023-09-21] MEDS: Morphine Sulfate ER 30 MG TABLET.ER 90 MG PO ×2 (08:58→20:53)
[2023-09-21] MEDS: DULoxetine HCl 60 MG CAPSULE.DR PO (08:59)
[2023-09-21] MEDS: DULoxetine HCl 30 MG CAPSULE.DR PO (08:59)
[2023-09-21] MEDS: clonazePAM 0.5 MG TABLET PO ×2 (09:11→21:30)
[2023-09-21] MEDS: Silver Sulfadiazine 1 % Cream 20 GM TUBE 1 APPL TOPICAL (11:12)
[2023-09-21] MEDS: NeoMYCIN/Polymyxin/HC Otic Sus 10 ML DRPBTL 3 DROP EAR-RIGHT ×4 (11:12→20:55)
[2023-09-21] MEDS: vancomycin HCL 1,250 MG in 0.9 % Sodium Chloride 250 ML 166.67 MG IV (20:50)
[2023-09-21] MEDS: traZODone HCL 50 MG TABLET 150 MG PO (20:53)
[2023-09-21] MEDS: Enoxaparin Sodium 40 MG/0.4 ML SYRINGE SUBCUT (21:30)
[2023-09-22] VITALS (8 sets, daily range): BP systolic 88–129; BP diastolic 46–73; PULSE 68–96; RESP 18; TEMP 35.9–36.3; O2SAT 92–99
[2023-09-22] MEDS: Piperacillin Sodium/Tazobactam 3.375 GM in 0.9 % Sodium Chloride 50 ML IV ×4 (02:35→21:44)
[2023-09-22] MEDS: Levothyroxine Sodium 100 MCG TABLET PO (05:15)
[2023-09-22] MEDS: oxyCODONE HCl Immed Release 5 MG TABLET 20 MG PO ×3 (06:06→16:13)
[2023-09-22] MEDS: Omeprazole 20 MG CAPSULE.DR PO (06:06)
[2023-09-22 06:24] LABS: Creatinine Clr Calc Pharmacy 54.4; Estimated Glomerular Filt Rate 52
[2023-09-22 07:56] LABS: Anion Gap 13 (12-20)
[2023-09-22 07:59] LABS: Blood Urea Nitrogen 10 mg/dL (9-16); Calcium 8.4 mg/dL (8.4-10.2); Carbon Dioxide 24 mmol/L (22-29); Chloride 107 mmol/L (96-108); Glucose Random 98 mg/dL (60-115); Potassium 4.2 mmol/L (3.3-5.1); Sodium 140 mmol/L (135-145)
[2023-09-22] MEDS: Albuterol Sulfate (0.083%) 2.5 MG/3 ML VIAL.NEB INHALE ×3 (08:11→19:56)
[2023-09-22] MEDS: Budesonide 0.5 MG/2 ML AMPUL.NEB INHALE ×2 (08:11→19:56)
[2023-09-22] MEDS: DULoxetine HCl 60 MG CAPSULE.DR PO (08:34)
[2023-09-22] MEDS: Morphine Sulfate ER 30 MG TABLET.ER 90 MG PO ×2 (08:34→21:43)
[2023-09-22] MEDS: 0.9 % Sodium Chloride Flush 3 ML SYRINGE IVFLUSH ×3 (08:34→20:02)
[2023-09-22] MEDS: DULoxetine HCl 30 MG CAPSULE.DR PO (08:34)
[2023-09-22] MEDS: NeoMYCIN/Polymyxin/HC Otic Sus 10 ML DRPBTL 3 DROP EAR-RIGHT ×4 (08:40→21:51)
[2023-09-22] MEDS: Silver Sulfadiazine 1 % Cream 20 GM TUBE 1 APPL TOPICAL (10:39)
--- NOTE | 2023-09-22 10:59 | HO.PM.IMPN ---
Subjective Subjective Date of Service: 09/22/23 Interval History: f/u on sepsis d/t cellulitis and otitis media/externa she notes that swelling and redness is better. Physical Exam Vital Signs: Vital Signs: Last Vital Signs Temp 97.4 F 09/22/23 08:00 Pulse 68 09/22/23 08:14 Resp 18 09/22/23 08:14 BP 129/73 09/22/23 08:00 Pulse Ox 98 09/22/23 08:00 O2 Del Method Nasal Cannula 09/22/23 08:00 O2 Flow Rate 2.0 09/22/23 08:00 BMI result Body Mass Index 35.8 Constitutional - Awake and Alert, No apparent distress Eyes - PERRLA, EOMI Ear - Tednerness with manipulation of the tragus/pinna R ear with copious purulent drainage R canal with limited visual of the TM Cardiovascular - S1S2, RRR, No edema Respiratory - Normal lung expansion, Normal respiratory effort, No respiratory distress, scattered expiratory wheezes Chest - s/p bilateral mastectomy. Chronic wound R axilla with pink edges, clean appearing without any active drainage Gastrointestinal - NT / ND; +BS; No rebound or guarding Extremities - no calf tenderness bilaterally, no swelling Skin - Warm/Dry , compare to yesterday, redness is better Neurological - Alert & oriented x3 Psychological - Appropriate affect Objective Data Active Medications Acetaminophen (Acetaminophen 325 Mg Tablet) 650 mg PO Q6H PRN PRN Reason: Pain, Mild (Pain Scale 1-3) Albuterol Sulfate (Albuterol Sulfate (0.083%) 2.5 Mg/3 Ml Vial.Neb) 2.5 mg INHALE TID [facility] Last Admin: 09/22/23 08:11 Dose: 2.5 mg Documented By: PATRIZIA Budesonide (Budesonide 0.5 Mg/2 Ml Ampul.Neb) 0.5 mg INHALE BID [facility] Last Admin: 09/22/23 08:11 Dose: 0.5 mg Documented By: PATRIZIA Clonazepam (Clonazepam 0.5 Mg Tablet) 0.5 mg PO TID PRN PRN Reason: anxiety Last Admin: 09/21/23 21:30 Dose: 0.5 mg Documented By: RITA Duloxetine HCl (Duloxetine Hcl 30 Mg Capsule.) 30 mg PO DAILY [facility] Last Admin: 09/22/23 08:34 Dose: 30 mg Documented By: OTONIEL Duloxetine HCl (Duloxetine Hcl 60 Mg Capsule.) 60 mg PO DAILY [facility] Last Admin: 09/22/23 08:34 Dose: 60 mg Documented By: OTONIEL Enoxaparin Sodium (Enoxaparin Sodium 40 Mg/0.4 Ml Syringe) 40 mg SUBCUT Q24H [facility] Last Admin: 09/21/23 21:30 Dose: 40 mg Documented By: RITA Vancomycin HCl 1,250 mg/ (Sodium Chloride) 250 mls @ 166.667 mls/hr IV Q24H [facility] Last Infusion: 09/21/23 22:20 Dose: Infused Documented By: RITA Piperacillin Sod/Tazobactam (Sod 3.375 gm/ Sodium Chloride) 50 mls @ 100 mls/hr IV Q6H [facility] Last Infusion: 09/22/23 09:13 Dose: Infused Documented By: OTONIEL Levothyroxine Sodium (Levothyroxine Sodium 100 Mcg Tablet) 100 mcg PO DAILY@0600 [facility] Last Admin: 09/22/23 05:15 Dose: 100 mcg Documented By: RITA Morphine Sulfate (Morphine Sulfate Er 30 Mg Tablet.Er) 90 mg PO BID [facility] Last Admin: 09/22/23 08:34 Dose: 90 mg Documented By: OTONIEL Neomycin/Polymyxin/Hydrocortisone (Neomycin/Polymyxin/Hc Otic Priti 10 Ml Drpbtl) 3 drop EAR-RIGHT QID [facility] Last Admin: 09/22/23 08:40 Dose: 3 drop Documented By: OTONIEL Non-Formulary Medication (Arformoterol) 2 ml INHALE BID [facility] Omeprazole (Omeprazole 20 Mg Capsule.) 20 mg PO DAILY@0630 [facility] Last Admin: 09/22/23 06:06 Dose: 20 mg Documented By: RITA Ondansetron HCl (Ondansetron Hcl 4 Mg/2 Ml Vial) 4 mg IVPUSH Q8H PRN PRN Reason: Nausea and Vomiting Oxycodone HCl (Oxycodone Hcl Immed Release 5 Mg Tablet) 20 mg PO Q4H PRN PRN Reason: Pain, Severe (Pain Scale 7-10) Last Admin: 09/22/23 10:37 Dose: 20 mg Documented By: OTONIEL Pharmacy Consult (Consult Rx Vancomycin Dosing) 1 each MISCELLANE DAILY PRN PRN Reason: Consult order Senna (Sennosides 8.6 Mg Tablet) 17.2 mg PO BEDTIME PRN PRN Reason: Constipation Silver Sulfadiazine (Silver Sulfadiazine 1 % Cream 20 Gm Tube) 1 appl TOPICAL DAILY [facility] Last Admin: 09/22/23 10:39 Dose: 1 appl Documented By: OTONIEL Sodium Chloride (0.9 % Sodium Chloride Flush 3 Ml Syringe) 3 ml IVFLUSH QSHIFT [facility] Last Admin: 09/22/23 08:34 Dose: 3 ml Documented By: OTONIEL Trazodone HCl (Trazodone Hcl 50 Mg Tablet) 150 mg PO BEDTIME [facility] Last Admin: 09/21/23 20:53 Dose: 150 mg Documented By: RITA Labs 09/21/23 05:38 09/22/23 05:11 Labs: Laboratory Results - last 24 hr 09/22/23 05:11 Hold Purple Top SEE NOTE Anion Gap 13 Estim Creat Clear Calc 54.4 Estimated GFR 52 Random Glucose 98 Calcium 8.4 Microbiology Microbiology Results: Microbiology 09/20/23 18:57 Blood Culture - Preliminary Blood - Venous No growth after 24 hours. 09/20/23 18:54 Blood Culture - Preliminary Blood - Venous No growth after 24 hours. 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 who is a former smoker admitted for management of cellulitis RUE and acute otitis media/externa R ear with severe sepsis #Severe sepsis -2/2 cellulitis RUE and R otitis media/externa, fever resolved, swelling and redness is better, cultures negative -IV vancomycin and Zosyn 09/19 -follow CBC, cultures # acute cellulitis of the right upper extremity -venous duplex negative for DVT -IV vancomycin Zosyn as above -ID consult -follow CBC, cultures # acute otitis media/otitis externa with history of chronic suppurative otitis media with history of irradiated tympanoplasty -IV vancomycin/Zosyn, topical corticosporin (initiated 09/19) -reports previously has required copious flushing of R canal- outpt follow up with ENT unless symptoms not improving #CKD stage 3, creatine normal #Normocytic anemia- unclear chronicity, suspect chronic r/t chronic disease -h/h above transfusion threshold -follow CBC # hypertension, BP nl to slightly low, not on meds # chronic pain disorder -continue MS Contin, oxycodone p.r.n. # chronic burn/Wound right axilla s/p radiation therapy -apply Silvadene to wound daily and cover with dry dressing -wound RN consult # hypothyroidism -continue Synthroid # GERD -PPI # COPD -no acute exacerbation -continue maintenance inhalers, albuterol p.r.n. DVT prophylaxis-Lovenox Full code need for inpatient: for management of severe sepsis secondary to extensive cellulitis of the right upper extremity encompassing nearly 100% of the extremity as well as severe right-sided otitis media/externa with copious purulent drainage requiring broad-spectrum IV antibiotics as well as close monitoring Quality Stroke Does the patient have a stroke diagnosis?: No VTE Prior VTE?: No VTE Risk Level:: Medical - moderate - high VTE Device Contraindication: Treatment Not Indicated VTE Drug Contraindication: N/A - Med Ordered
[2023-09-22 11:06] LABS: MANUAL DIFF FLAG NO
[2023-09-22 11:12] LABS: Basophils Percent Auto 0.3 % (0-2); Eosinophils Absolute Auto 0.1 X10*3/uL (0.0-0.4); Eosinophils Percent Auto 3.3 % (0-4); Hematocrit 27.2 % (37.0-47.0); Hemoglobin 7.8 g/dl (12.0-16.0); Imm Gran Abs Auto 0.01 X10*3/uL (0.00-0.03); Imm Gran Pct Auto 0.3 % (0.0-0.4); Lymphocytes Absolute Auto 0.7 X10*3/uL (1.2-4.9); Lymphocytes Percent Auto 16.7 % (20-40); Mean Corpuscular HGB Conc 28.7 g/dl (31.0-35.0); Mean Corpuscular Hemoglobin 24.7 pg (27.0-33.0); Mean Corpuscular Volume 86.1 fL (80.0-98.0); Mean Platelet Volume 10.3 fL (9.4-12.3); Monocytes Absolute Auto 0.3 X10*3/uL (0.1-1.2); Monocytes Percent Auto 7.5 % (2-11); Neutrophils Absolute Auto 2.8 x10*3/uL (2.0-8.3); Neutrophils Percent Auto 71.9 % (45-73); Platelet Count 216 X10*3/uL (160-400); Red Blood Count 3.16 X10*6/uL (4.20-5.50); Red Cell Distribution Width 18.1 % (11.0-16.0); White Blood Count 3.9 X10*3/uL (4.8-10.8)
[2023-09-22] MEDS: clonazePAM 0.5 MG TABLET PO ×2 (13:18→21:44)
--- NOTE | 2023-09-22 15:49 | MHC.CM.PN ---
PT REPORTS SHE LIVES ALONE BUT HAS A FRIEND UPSTAIRS, WHO IS LIKE A DAUGHTER AND PROVIDES ASSISTANCE PRN PT DENIES USE OF DME OR HOME SERVICES, HOWEVER REPORTS SHE FEELS SHE NEEDS SERVICES PER DISCUSSION, A REFERRAL WAS MADE TO [facility] PT SAYS SHE HAS A HCP, COPY REQUESTED PCP: RADHA ACEVES DCP: HOME WITH [facility] REFERRAL VIA PRIVATE TRANSPORT
[2023-09-22 19:21] LABS: Vancomycin Random 13.8 mcg/mL (15-20)
--- NOTE | 2023-09-22 19:32 | HE.PHANOTE ---
RE:vanco Trough on 09/21 came back at 13.8 mg/L, renal function improving. Increased dose to 1500mg Q24H with predicted trough of 16.8, AUC of 571 mg/L. Next level to be drawn 09/23 @1900.
[2023-09-22] MEDS: Lactated Ringers 1,000 ML 999 ML IV (19:54)
--- NOTE | 2023-09-22 20:39 | PC.RT ---
Per RN pt was desaturating into the 70's and pt was having SOB. Pt setup on cool aerosol 35% 8LPM and given Neb tx's. Pt recovered and is currently drake well. will continue to monitor
[2023-09-22] MEDS: Enoxaparin Sodium 40 MG/0.4 ML SYRINGE SUBCUT (21:43)
[2023-09-22] MEDS: traZODone HCL 50 MG TABLET 150 MG PO (21:44)
[2023-09-22] MEDS: vancomycin HCL 1,500 MG in 0.9 % Sodium Chloride 500 ML 333.33 MG IV (22:15)
--- NOTE | 2023-09-23 01:13 | PC.NURSE ---
pt desat to 76% with 2L NC, notified and RT. RT put cool airsol 35% w/8L weaning down to 25% 5L through the trach. according to RT. 25% w/5L is a same amount of oxygen 2L via NC. sat 95% - 96% HR73. continue to monitor.
[2023-09-23 04:00] VITALS: BP 135/71; PULSE 102; RESP 16; TEMP 36; O2SAT 95
[2023-09-23] MEDS: Piperacillin Sodium/Tazobactam 3.375 GM in 0.9 % Sodium Chloride 50 ML IV ×4 (04:14→22:15)
[2023-09-23] MEDS: Levothyroxine Sodium 100 MCG TABLET PO (05:04)
[2023-09-23] MEDS: oxyCODONE HCl Immed Release 5 MG TABLET 20 MG PO ×3 (05:53→16:50)
[2023-09-23] MEDS: Omeprazole 20 MG CAPSULE.DR PO (05:53)
[2023-09-23 06:19] LABS: Creatinine Clr Calc Pharmacy 54.4; Estimated Glomerular Filt Rate 52
[2023-09-23 07:25] VITALS: BP 125/68; PULSE 77; RESP 14; TEMP 36.6; O2SAT 94
[2023-09-23] MEDS: Albuterol Sulfate (0.083%) 2.5 MG/3 ML VIAL.NEB INHALE ×2 (07:36→20:31)
[2023-09-23] MEDS: Budesonide 0.5 MG/2 ML AMPUL.NEB INHALE ×2 (07:36→20:31)
[2023-09-23 07:37] VITALS: PULSE 77; RESP 14; O2SAT 96
[2023-09-23] MEDS: DULoxetine HCl 30 MG CAPSULE.DR PO (08:42)
[2023-09-23] MEDS: Morphine Sulfate ER 30 MG TABLET.ER 90 MG PO ×2 (08:42→22:24)
[2023-09-23] MEDS: DULoxetine HCl 60 MG CAPSULE.DR PO (08:43)
[2023-09-23] MEDS: 0.9 % Sodium Chloride Flush 3 ML SYRINGE IVFLUSH ×2 (08:43→16:51)
[2023-09-23] MEDS: NeoMYCIN/Polymyxin/HC Otic Sus 10 ML DRPBTL 3 DROP EAR-RIGHT ×4 (08:44→22:26)
[2023-09-23] MEDS: Silver Sulfadiazine 1 % Cream 20 GM TUBE 1 APPL TOPICAL (08:47)
--- NOTE | 2023-09-23 12:18 | P.PNIM_ITS ---
Subjective Subjective Date of Service: 09/23/23 Interval History: f/u on sepsis d/t cellulitis and otitis media/externa she notes that swelling and redness continue to improve Physical Exam 2 Vital Signs: Vital Signs: Last Vital Signs Temp 97.8 F 09/23/23 07:25 Pulse 77 09/23/23 07:37 Resp 14 09/23/23 07:37 BP 125/68 09/23/23 07:25 Pulse Ox 94 09/23/23 07:25 O2 Del Method Trach Collar 09/23/23 07:25 O2 Flow Rate 5 09/23/23 07:25 FiO2 25 09/23/23 07:25 BMI result Body Mass Index 35.8 Constitutional - Awake and Alert, No apparent distress Eyes - PERRLA, EOMI Ear - Tednerness with manipulation of the tragus/pinna R ear with copious purulent drainage R canal with limited visual of the TM Cardiovascular - S1S2, RRR, No edema Respiratory - Normal lung expansion, Normal respiratory effort, No respiratory distress, scattered expiratory wheezes Chest - s/p bilateral mastectomy. Chronic wound R axilla with pink edges, clean appearing without any active drainage Gastrointestinal - NT / ND; +BS; No rebound or guarding Extremities - no calf tenderness bilaterally, swelling seem unchnaged to me Skin - Warm/Dry , compare to yesterday, redness is better Neurological - Alert & oriented x3 Psychological - Appropriate affect Objective Data Active Medications Albuterol Sulfate (Albuterol Sulfate (0.083%) 2.5 Mg/3 Ml Vial.Neb) 2.5 mg INHALE TID [facility] Last Admin: 09/23/23 07:36 Dose: 2.5 mg Documented By: TANNER Albuterol/Ipratropium (Albuterol/Iprat 2.5/0.5mg 3 Ml Ampul.Neb) 3 ml INHALE Q4H PRN PRN Reason: Wheezing Budesonide (Budesonide 0.5 Mg/2 Ml Ampul.Neb) 0.5 mg INHALE BID [facility] Last Admin: 09/23/23 07:36 Dose: 0.5 mg Documented By: TANNER Clonazepam (Clonazepam 0.5 Mg Tablet) 0.5 mg PO TID PRN PRN Reason: anxiety Last Admin: 03/17/24 21:44 Dose: 0.5 mg Documented By: RITA Duloxetine HCl (Duloxetine Hcl 30 Mg Capsule.) 30 mg PO DAILY [facility] Last Admin: 09/23/23 08:42 Dose: 30 mg Documented By: ALYSSA Duloxetine HCl (Duloxetine Hcl 60 Mg Capsule.) 60 mg PO DAILY [facility] Last Admin: 09/23/23 08:43 Dose: 60 mg Documented By: ALYSSA Enoxaparin Sodium (Enoxaparin Sodium 40 Mg/0.4 Ml Syringe) 40 mg SUBCUT Q24H [facility] Last Admin: 09/22/23 21:43 Dose: 40 mg Documented By: RITA Piperacillin Sod/Tazobactam (Sod 3.375 gm/ Sodium Chloride) 50 mls @ 100 mls/hr IV Q6H [facility] Last Infusion: 09/23/23 09:25 Dose: Infused Documented By: ALYSSA Vancomycin HCl 1,500 mg/ (Sodium Chloride) 500 mls @ 333.333 mls/hr IV Q24H [facility] Last Infusion: 09/22/23 23:50 Dose: Infused Documented By: RITA Levothyroxine Sodium (Levothyroxine Sodium 100 Mcg Tablet) 100 mcg PO DAILY@0600 [facility] Last Admin: 09/23/23 05:04 Dose: 100 mcg Documented By: RITA Morphine Sulfate (Morphine Sulfate Er 30 Mg Tablet.Er) 90 mg PO BID [facility] Last Admin: 09/23/23 08:42 Dose: 90 mg Documented By: ALYSSA Neomycin/Polymyxin/Hydrocortisone (Neomycin/Polymyxin/Hc Otic Priti 10 Ml Drpbtl) 3 drop EAR-RIGHT QID [facility] Last Admin: 09/23/23 11:59 Dose: 3 drop Documented By: ALYSSA Non-Formulary Medication (Arformoterol) 2 ml INHALE BID [facility] Omeprazole (Omeprazole 20 Mg Capsule.) 20 mg PO DAILY@0630 [facility] Last Admin: 09/23/23 05:53 Dose: 20 mg Documented By: RITA Ondansetron HCl (Ondansetron Hcl 4 Mg/2 Ml Vial) 4 mg IVPUSH Q8H PRN PRN Reason: Nausea and Vomiting Oxycodone HCl (Oxycodone Hcl Immed Release 5 Mg Tablet) 20 mg PO Q4H PRN PRN Reason: Pain, Severe (Pain Scale 7-10) Last Admin: 09/23/23 11:59 Dose: 20 mg Documented By: ALYSSA Pharmacy Consult (Consult Rx Vancomycin Dosing) 1 each MISCELLANE DAILY PRN PRN Reason: Consult order Senna (Sennosides 8.6 Mg Tablet) 17.2 mg PO BEDTIME PRN PRN Reason: Constipation Silver Sulfadiazine (Silver Sulfadiazine 1 % Cream 20 Gm Tube) 1 appl TOPICAL DAILY [facility] Last Admin: 09/23/23 08:47 Dose: 1 appl Documented By: ALYSSA Sodium Chloride (0.9 % Sodium Chloride Flush 3 Ml Syringe) 3 ml IVFLUSH QSHIFT [facility] Last Admin: 09/23/23 08:43 Dose: 3 ml Documented By: ALYSSA Trazodone HCl (Trazodone Hcl 50 Mg Tablet) 150 mg PO BEDTIME [facility] Last Admin: 09/22/23 21:44 Dose: 150 mg Documented By: RITA Labs 09/22/23 05:11 09/23/23 Unknown Labs: Laboratory Results - last 24 hr 09/22/23 09/23/23 09/23/23 19:00 05:09 Unknown Hold Purple Top SEE NOTE Estim Creat Clear Calc 54.4 Estimated GFR 52 Random Vancomycin 13.8 L Microbiology Microbiology Results: Microbiology 09/20/23 18:57 Blood Culture - Preliminary Blood - Venous No growth after 48 hours. 09/20/23 18:54 Blood Culture - Preliminary Blood - Venous No growth after 48 hours. 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 -IV vancomycin and Zosyn 09/19 -follow CBC, cultures -ask vascular for recommendation of further testing # acute otitis media/otitis externa with history of chronic suppurative otitis media with history of irradiated tympanoplasty -IV vancomycin/Zosyn, topical corticosporin (initiated 09/19) -reports previously has required copious flushing of R canal- outpt follow up with ENT unless symptoms not improving #CKD stage 3, creatine normal #Normocytic anemia- unclear chronicity, suspect chronic r/t chronic disease -h/h above transfusion threshold -follow CBC # hypertension, BP nl # chronic pain disorder -continue MS Contin, oxycodone p.r.n. # chronic burn/Wound right axilla s/p radiation therapy -apply Silvadene to wound daily and cover with dry dressing -wound RN consult # hypothyroidism -continue Synthroid # GERD -PPI # COPD -no acute exacerbation -continue maintenance inhalers, albuterol p.r.n. DVT prophylaxis-Lovenox Full code need for inpatient: for management of severe sepsis secondary to extensive cellulitis of the right upper extremity encompassing nearly 100% of the extremity as well as severe right-sided otitis media/externa with copious purulent drainage requiring broad-spectrum IV antibiotics as well as close monitoring Quality Stroke Does the patient have a stroke diagnosis?: No VTE Prior VTE?: No VTE Risk Level:: Medical - moderate - high VTE Device Contraindication: Treatment Not Indicated VTE Drug Contraindication: N/A - Med Ordered
[2023-09-23 12:32] LABS: MANUAL DIFF FLAG NO
[2023-09-23 12:39] LABS: Basophils Percent Auto 0.3 % (0-2); Eosinophils Absolute Auto 0.1 X10*3/uL (0.0-0.4); Eosinophils Percent Auto 3.2 % (0-4); Hematocrit 24.8 % (37.0-47.0); Hemoglobin 7.1 g/dl (12.0-16.0); Imm Gran Abs Auto 0.02 X10*3/uL (0.00-0.03); Imm Gran Pct Auto 0.6 % (0.0-0.4); Lymphocytes Absolute Auto 0.6 X10*3/uL (1.2-4.9); Lymphocytes Percent Auto 18.5 % (20-40); Mean Corpuscular HGB Conc 28.6 g/dl (31.0-35.0); Mean Corpuscular Hemoglobin 24.9 pg (27.0-33.0); Mean Platelet Volume 10.4 fL (9.4-12.3); Monocytes Absolute Auto 0.2 X10*3/uL (0.1-1.2); Monocytes Percent Auto 6.7 % (2-11); Neutrophils Absolute Auto 2.2 x10*3/uL (2.0-8.3); Neutrophils Percent Auto 70.7 % (45-73); Platelet Count 189 X10*3/uL (160-400); Red Blood Count 2.85 X10*6/uL (4.20-5.50); Red Cell Distribution Width 18.1 % (11.0-16.0); White Blood Count 3.1 X10*3/uL (4.8-10.8)
--- NOTE | 2023-09-23 13:42 | MHC.CM.PN ---
EMR REVIEWED AND PER MD ROUNDS, PT IS NOT MEDICALLY CLEARED FOR DC HOME (RUE SWELLING AND REDNESS IMPROVING) CM WILL CONTINUE TO FOLLOW FOR ANY CHANGE IN DC PLAN/NEEDS
--- NOTE | 2023-09-23 15:36 | HO.WOUND ---
Wound Consult: Initial 63yr old? Female admitted [place] [facility] - See progress notes and H&P for detailed history.? Wound consult placed for Right Chest wound care.? Patient agreeable to assessment and photo documentation.? Patient reports she sought treatment for Lymphedema approximately 10-15 years ago - she was prescribed a small pump and one wrap however the treatment was unsuccessful according to her. Advised patient to continue to seek Lymphedema treatment as this will likely benefit the wound healing of right chest. We discussed [facility] for her to explore and [facility] in [place] for Lymphedema treatment. She is agreeable to pursuing treatment. Her two friends were at the bedside and agreeable to aiding in making an appointment with the understanding that it is likely 3-6 month waiting list. The wound is followed by the Outpatient wound clinic and last seen 09/11/23 and next appointment 09/25/23 - pt will call to reschedule if not discharged prior to appointment. The patient was advised to discuss Mesalt dressing for wound treatment if available at outpatient as this product is not available inpatient. The wound beds pale coloring may indicate Bioflim and mesalt is an available option to treating biofilm. I discussed with the patient the idea that mobilizing the fluid in her arm will likely benefit her wound healing most - she reports understanding. Right Chest / Axilla Etiology: ??Chronic Radiation Dermatitis Measurements:see charting for detailed measurement Wound Bed: pale pink moist wound bed with thin veil of yellow slough adherent to wound bed Drainage / Odor: carlson serosang drainage noted on dressing Edges: ? irregular and macerated Priti wound: Intact - Hyperpigmented tissue - No Induration, Fluctuance or Warmth noted Pain: reports pain and tenderness Goals of Treatment: ? Moisture management with Durafiber AG Recommendations: 1. Right Chest Axilla - Cleanse with NS moist gauze, pat dry. Apply Triad to periwound - cover wound bed with cut to size Durafiber AG, cover with Foam dressing or ABD pad. change every other day. Continue follow up with Outpatient Wound Clinic and follow up with Dr. Gallardo for Lymphedema pump treatment. 2. Provide adequate and supplemental nutrition.? Re-consult wound care Nurse for wound deterioration or wound changes.
[2023-09-23 15:44] VITALS: BP 152/85; PULSE 99; RESP 18; TEMP 36.1; O2SAT 94
--- NOTE | 2023-09-23 16:07 | P.CONGS_ITS ---
History of Present Illness Consult details Consult date: 09/23/23 Reason for consult: wound care Narrative: Very pleasant 63-year-old female with a history of metastatic breast cancer diagnosed in 2007. She subsequently had mastectomy with post radiation. She developed postradiation skin changes. In addition she has a prior history of a laryngectomy. 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 Review of Systems 2 Review of Systems: Yes all other systems are reviewed and are negative Constitutional: Constitutional: Reports no additional constitutional complaints ENT: Reports Normal hearing present Cardiovascular: Cardiovascular: Denies chest pain, Denies chest pain at rest, Denies chest pain with activity and Denies pedal edema Respiratory: Respiratory: Denies cough Gastrointestinal: Gastrointestinal: Denies abdominal pain Musculoskeletal: Musculoskeletal: Denies abnormal gait, Denies muscle cramps and Denies radiating pain into limb Integumentary/Breasts: Skin/Breast: Denies skin ulcer and Denies wounds Neurologic: Reports Normal hearing present and Denies abnormal gait Psychiatric: Psychiatric: Reports no additional psychiatric complaints [facility] Past Medical History Medical History (Updated 09/23/23 @ 16:11 by Richard Gallardo MD) Mixed conductive and sensorineural hearing loss of right ear Former smoker Mood disorder Dysphagia Hypertension Hypothyroidism GERD (gastroesophageal reflux disease) Laryngeal carcinoma Chronic suppurative otitis media Metastatic malignant neoplasm to breast COPD (chronic obstructive pulmonary disease) Surgical History Surgical History (Updated 09/20/23 @ 22:21 by LASHONDA Wong) History of tympanoplasty of right ear S/P bilateral mastectomy Social History Social History Household Members: None Housing: House Patient Tobacco Use Status: Former Tobacco user Quit Date: 2020 Tobacco use type: Cigarette and Cigar Years Smoked: 40 e-Cigarette/Vaping Use: Never Used Second Hand Smoke Exposure: No Substance Use Type: Marijuana service: No Meds Allergies Allergy/AdvReac Type Severity Reaction Status Date / Time No Known Allergies Allergy Verified 09/20/23 18:05 Active Medications: Current Medications Albuterol Sulfate (Albuterol Sulfate (0.083%) 2.5 Mg/3 Ml Vial.Neb) 2.5 mg INHALE TID [facility] Last Admin: 09/23/23 15:51 Dose: Not Given Albuterol/Ipratropium (Albuterol/Iprat 2.5/0.5mg 3 Ml Ampul.Neb) 3 ml INHALE Q4H PRN PRN Reason: Wheezing Budesonide (Budesonide 0.5 Mg/2 Ml Ampul.Neb) 0.5 mg INHALE BID [facility] Last Admin: 09/23/23 07:36 Dose: 0.5 mg Clonazepam (Clonazepam 0.5 Mg Tablet) 0.5 mg PO TID PRN PRN Reason: anxiety Last Admin: 09/22/23 21:44 Dose: 0.5 mg Duloxetine HCl (Duloxetine Hcl 30 Mg Capsule.) 30 mg PO DAILY [facility] Last Admin: 09/23/23 08:42 Dose: 30 mg Duloxetine HCl (Duloxetine Hcl 60 Mg Capsule.) 60 mg PO DAILY [facility] Last Admin: 09/23/23 08:43 Dose: 60 mg Enoxaparin Sodium (Enoxaparin Sodium 40 Mg/0.4 Ml Syringe) 40 mg SUBCUT Q24H [facility] Last Admin: 09/22/23 21:43 Dose: 40 mg Piperacillin Sod/Tazobactam (Sod 3.375 gm/ Sodium Chloride) 50 mls @ 100 mls/hr IV Q6H [facility] Last Infusion: 09/23/23 14:42 Dose: Infused Vancomycin HCl 1,500 mg/ (Sodium Chloride) 500 mls @ 333.333 mls/hr IV Q24H [facility] Last Infusion: 09/22/23 23:50 Dose: Infused Levothyroxine Sodium (Levothyroxine Sodium 100 Mcg Tablet) 100 mcg PO DAILY@0600 [facility] Last Admin: 09/23/23 05:04 Dose: 100 mcg Morphine Sulfate (Morphine Sulfate Er 30 Mg Tablet.Er) 90 mg PO BID [facility] Last Admin: 09/23/23 08:42 Dose: 90 mg Neomycin/Polymyxin/Hydrocortisone (Neomycin/Polymyxin/Hc Otic Priti 10 Ml Drpbtl) 3 drop EAR-RIGHT QID [facility] Last Admin: 09/23/23 11:59 Dose: 3 drop Non-Formulary Medication (Arformoterol) 2 ml INHALE BID [facility] Omeprazole (Omeprazole 20 Mg Capsule.) 20 mg PO DAILY@0630 [facility] Last Admin: 09/23/23 05:53 Dose: 20 mg Ondansetron HCl (Ondansetron Hcl 4 Mg/2 Ml Vial) 4 mg IVPUSH Q8H PRN PRN Reason: Nausea and Vomiting Oxycodone HCl (Oxycodone Hcl Immed Release 5 Mg Tablet) 20 mg PO Q4H PRN PRN Reason: Pain, Severe (Pain Scale 7-10) Last Admin: 09/23/23 11:59 Dose: 20 mg Pharmacy Consult (Consult Rx Vancomycin Dosing) 1 each MISCELLANE DAILY PRN PRN Reason: Consult order Senna (Sennosides 8.6 Mg Tablet) 17.2 mg PO BEDTIME PRN PRN Reason: Constipation Silver Sulfadiazine (Silver Sulfadiazine 1 % Cream 20 Gm Tube) 1 appl TOPICAL DAILY [facility] Last Admin: 09/23/23 08:47 Dose: 1 appl Sodium Chloride (0.9 % Sodium Chloride Flush 3 Ml Syringe) 3 ml IVFLUSH QSHIFT [facility] Last Admin: 09/23/23 08:43 Dose: 3 ml Trazodone HCl (Trazodone Hcl 50 Mg Tablet) 150 mg PO BEDTIME [facility] Last Admin: 09/22/23 21:44 Dose: 150 mg Home Medications Medication Instructions Recorded Confirmed Last Taken Type albuterol sulfate 2.5 mg/3 mL 2.5 mg inhalation TID 09/20/23 09/20/23 09/20/23 History (0.083 %) solution for nebulization arformoterol 15 mcg/2 mL solution 2 ml inhalation BID 09/20/23 09/20/23 09/20/23 History for nebulization budesonide 0.5 mg/2 mL suspension 0.5 mg inhalation BID 09/20/23 09/20/23 09/20/23 History for nebulization clonazepam 0.5 mg tablet 0.5 mg PO TID PRN anxiety 09/20/23 09/20/23 Unknown History duloxetine 30 mg capsule,delayed 30 mg PO DAILY 09/20/23 09/20/23 09/20/23 History release duloxetine 60 mg capsule,delayed 60 mg PO DAILY 09/20/23 09/20/23 09/20/23 History release levothyroxine 100 mcg tablet 100 mcg PO DAILY 09/20/23 09/20/23 09/20/23 History morphine 100 mg tablet,extended 100 mg PO BID 09/20/23 09/20/23 09/20/23 History release omeprazole 20 mg capsule,delayed 20 mg PO DAILY 09/20/23 09/20/23 Unknown History release oxycodone 10 mg tablet 20 mg PO Q4H PRN pain 09/20/23 09/20/23 09/20/23 History silver sulfadiazine 1 % topical 1 appl topical DAILY 09/20/23 09/20/23 09/20/23 History cream trazodone 150 mg tablet 150 mg PO BEDTIME 09/20/23 09/20/23 09/19/23 History Physical Exam 2 Vital Signs: Vital Signs: Last Vital Signs Temp 96.9 F 09/23/23 15:44 Pulse 99 09/23/23 15:44 Resp 18 09/23/23 15:44 BP 152/85 H 09/23/23 15:44 Pulse Ox 94 09/23/23 15:44 O2 Del Method Room Air 09/23/23 15:44 O2 Flow Rate 5 09/23/23 07:25 FiO2 25 09/23/23 07:25 BMI result Body Mass Index 35.8 Const: General: cooperative, healthy appearing and comfortable O rientation/consciousness: oriented to person, oriented to place and oriented to time HEENT: Head: Yes normal to inspection Neck: Neck: Yes normal visual inspection Carotids: no bruits Chest: Chest palpation & inspection: normal inspection of the chest Resp: Effort & Inspection: normal respiratory effort and able to speak in complete sentences Auscultation: clear to auscultation bilaterally, no crackles, no rales, no rhonchi and no wheezes Cardio: Rate: regular rate Rhythm: regular rhythm Heart sounds: S1 normal heart sound present and S2 normal heart sound present Bruits: no carotid bruits Peripheral pulses: Peripheral pulses 2+ throughout GI: Inspection: Yes normal to inspection Skin: Other: Plus two edema of the right arm Wounds: no wounds Hair: normal Neuro: General: oriented to person, oriented to place and oriented to time Cranial nerves: Yes CN's II-XII intact bilaterally and Yes Normal hearing present Cognition (Neuro): normal cognition Motor exam (neuro): 5/5 motor strength present throughout Extrem: Other: venous exam: No significant superficial varicosities or spider telangiectasias, minimal edema General: No clubbing, No cyanosis and No edema Psych: Appearance: grossly normal Mental Status: mental status grossly normal Speech and movement: Normal speech and movement present Results Labs 09/23/23 05:09 09/23/23 Unknown Labs: Abnormal lab results 09/22/23 09/23/23 Range/Units 19:00 05:09 WBC 3.1 L (4.8-10.8) X10*3/uL RBC 2.85 L (4.20-5.50) X10*6/uL Hgb 7.1 L (12.0-16.0) g/dl Hct 24.8 L (37.0-47.0) % MCH 24.9 L (27.0-33.0) pg MCHC 28.6 L (31.0-35.0) g/dl RDW 18.1 H (11.0-16.0) % Immature Gran % (Auto) 0.6 H (0.0-0.4) % Lymph % (Auto) 18.5 L (20-40) % Lymph # (Auto) 0.6 L (1.2-4.9) X10*3/uL Random Vancomycin 13.8 L (15-20) mcg/mL Short CBC 09/23/23 Range/Units 05:09 WBC 3.1 L (4.8-10.8) X10*3/uL Hgb 7.1 L (12.0-16.0) g/dl Hct 24.8 L (37.0-47.0) % Plt Count 189 (160-400) X10*3/uL BMP 09/23/23 Unknown Creatinine 1.08 All other labs normal. Assessment and Plan (1) Lymphedema of right arm: Status: Acute Plan In short patient clearly has evidence of lymphedema of the right upper extremity. She did report that several years back she did receive a lymphedema pump but at has been stored away in her basement. She is stable from my perspective for discharge. Upon discharge he can see us for potential lymphedema evaluation for pumps and possible new pumps as it has advanced to her chest and trunk as well. This was all discussed with the patient. Patient was seen with the wound care nurse. Thank you for allowing us to assist in her care. If there are any questions or concerns please do not hesitate to contact us Procedures Date of Service Date of Service: 09/23/23
[2023-09-23] MEDS: clonazePAM 0.5 MG TABLET PO (16:59)
--- NOTE | 2023-09-23 17:00 | PC.NURSE ---
Patient requested Klonopin for feeling anxious
[2023-09-23 19:38] VITALS: BP 151/72; PULSE 100; RESP 17; TEMP 36.1; O2SAT 94
[2023-09-23 20:31] VITALS: PULSE 95; RESP 17; O2SAT 95
[2023-09-23] MEDS: Enoxaparin Sodium 40 MG/0.4 ML SYRINGE SUBCUT (22:24)
[2023-09-23] MEDS: traZODone HCL 50 MG TABLET 150 MG PO (22:24)
[2023-09-23] MEDS: vancomycin HCL 1,500 MG in 0.9 % Sodium Chloride 500 ML 333.33 MG IV (23:05)
[2023-09-24] MEDS: 0.9 % Sodium Chloride Flush 3 ML SYRINGE IVFLUSH ×2 (00:46→08:45)
[2023-09-24] MEDS: Piperacillin Sodium/Tazobactam 3.375 GM in 0.9 % Sodium Chloride 50 ML IV ×2 (03:27→08:33)
[2023-09-24] MEDS: oxyCODONE HCl Immed Release 5 MG TABLET 20 MG PO ×2 (03:33→11:43)
[2023-09-24 03:37] VITALS: BP 158/85; PULSE 86; RESP 16; TEMP 36; O2SAT 98
[2023-09-24 04:33] VITALS: RESP 18
[2023-09-24 06:20] LABS: Hematocrit 25.8 % (37.0-47.0); Hemoglobin 7.3 g/dl (12.0-16.0); Mean Corpuscular HGB Conc 28.3 g/dl (31.0-35.0); Mean Corpuscular Hemoglobin 24.4 pg (27.0-33.0); Mean Corpuscular Volume 86.3 fL (80.0-98.0); Mean Platelet Volume 9.9 fL (9.4-12.3); Platelet Count 184 X10*3/uL (160-400); Red Blood Count 2.99 X10*6/uL (4.20-5.50); Red Cell Distribution Width 17.9 % (11.0-16.0); White Blood Count 2.7 X10*3/uL (4.8-10.8)
[2023-09-24] MEDS: Levothyroxine Sodium 100 MCG TABLET PO (06:21)
[2023-09-24] MEDS: Omeprazole 20 MG CAPSULE.DR PO (06:21)
[2023-09-24 06:29] LABS: Creatinine Clr Calc Pharmacy 58.2; Estimated Glomerular Filt Rate 56
[2023-09-24 07:58] VITALS: BP 165/77; PULSE 73; RESP 16; TEMP 36.6; O2SAT 96
[2023-09-24] MEDS: Albuterol Sulfate (0.083%) 2.5 MG/3 ML VIAL.NEB INHALE (08:09)
[2023-09-24] MEDS: Budesonide 0.5 MG/2 ML AMPUL.NEB INHALE (08:09)
[2023-09-24 08:11] VITALS: PULSE 80; RESP 20; O2SAT 98
--- NOTE | 2023-09-24 08:13 | PC.RT ---
pt on a 35% trach collar and no oxygen orders
[2023-09-24] MEDS: Morphine Sulfate ER 30 MG TABLET.ER 90 MG PO (08:31)
[2023-09-24] MEDS: DULoxetine HCl 60 MG CAPSULE.DR PO (08:32)
[2023-09-24] MEDS: DULoxetine HCl 30 MG CAPSULE.DR PO (08:32)
[2023-09-24] MEDS: NeoMYCIN/Polymyxin/HC Otic Sus 10 ML DRPBTL 3 DROP EAR-RIGHT (08:36)
[2023-09-24] MEDS: clonazePAM 0.5 MG TABLET PO (08:51)
--- NOTE | 2023-09-24 09:34 | PM.DS ---
DS: Providers Provider Date of Service: 09/24/23 Date of admission: 09/20/23 21:53 Primary care physician: John Elizalde DO, MD Consults: 09/20/23 22:24 Consult to Wound Care Routine Reason for consultation: chronic wound/radiation burn R axilla 09/21/23 02:00 Consult to Wound Care Routine Reason for consultation: right shoulder wound d/t radiation 09/23/23 11:40 Consult to Vascular Surgery Routine Consulting Provider: [facility] Reason for consultation: Swollen right arm ? 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 She has chronic lymphedema of the right upper extremity with recurrent subsequent cellulitis of the right upper extremity. She also has chronic dyspnea and cough but feels these have worsened. Reporting bilateral ear pain. Her daughter also states that she frequently requires flushing of the right ear due to purulent drainage and infection. She has chronic right-sided hearing loss. Since arrival, patient has been febrile to 104.2 with tachycardia to 120 and tachypnea of 30. No hypotension. There is no leukocytosis. There is a normocytic anemia of unclear chronicity with H/H 8.1/27.5%. Renal function appears baseline, electrolyte levels normal. Initial lactic acid 2.1, repeat 1.9. Venous duplex of the right upper extremity negative for DVT. CT chest shows right apical pleural-parenchymal thickening but no consolidative process or evidence of aspiration pneumonia. CT of the right mastoid shows large right mastoid effusion without osseous erosion in the right middle ear cavity is completely opacified with thickening of the right bony external auditory canal with some stranding within the right periauricular soft tissues consistent with right-sided otitis externa and otitis media without soft tissue abscess. In the ED, has been given IV vancomycin and Zosyn as well as 1 L IV NS and 0.5 mg hydromorphone Hospital course: #Severe sepsis..She presented with with sepsis and found to have cellulitis of the righ arm with swelling due to lymphadema from history of breast ca from that side. She was also noted to have ear infection on the right side. She was treated with broad spec antibiotics with with Vancomycin and Zosyn. Blood culture have not grown any organism. Overall the arm is less red and mostly swollen due to lymphadema. US showed no DVT. She was evaluted by Vascular surgery and recommends outpatient follow up for lymphadema treatment. Will transition to oral Augmentin and Doxycyline for a total of 10 days of antibiotics. # acute otitis media/otitis externa with history of chronic suppurative otitis media with history of irradiated tympanoplasty Treated with IV vancomycin/Zosyn, topical corticosporin (initiated 09/19) -reports previously has required copious flushing of R canal- outpt follow up with ENT unless symptoms not improving #CKD stage 3, creatine normal #Normocytic anemia- likely chronic from anemia of chronic disease # hypertension, BP nl # chronic pain disorder -continue MS Contin, oxycodone p.r.n. # chronic burn/Wound right axilla s/p radiation therapy -apply Silvadene to wound daily and cover with dry dressing -wound RN consult # hypothyroidism -continue Synthroid # GERD -PPI # COPD -no acute exacerbation -continue maintenance inhalers, albuterol p.r.n. Home with [facility] service Time Attestation Discharge Coordination Time (in mins): 40 minutes Quality: Safe Use of Opioids Does Pt have an Active Cancer Diagnosis on the Problem List?: No Quality: Stroke Does the patient have a stroke diagnosis?: No Physical Exam Vital Signs: Vital Signs: Last Vital Signs Temp 97.8 F 09/24/23 07:58 Pulse 80 09/24/23 08:11 Resp 20 09/24/23 08:11 BP 165/77 H 09/24/23 07:58 Pulse Ox 96 09/24/23 07:58 O2 Del Method Trach Collar 09/24/23 07:58 O2 Flow Rate 6 09/24/23 07:58 FiO2 25 09/23/23 07:25 BMI result Body Mass Index 35.8 DS: Data Data Completed and Pending Labs on day of discharge: Laboratory Results - last 24 hr 09/23/23 09/24/23 09/24/23 05:09 05:55 07:06 WBC 3.1 L 2.7 L RBC 2.85 L 2.99 L Hgb 7.1 L 7.3 L Hct 24.8 L 25.8 L MCV 87.0 86.3 MCH 24.9 L 24.4 L MCHC 28.6 L 28.3 L RDW 18.1 H 17.9 H Plt Count 189 184 MPV 10.4 9.9 Immature Gran % (Auto) 0.6 H Neut % (Auto) 70.7 Lymph % (Auto) 18.5 L [place] % (Auto) 6.7 Eos % (Auto) 3.2 Baso % (Auto) 0.3 Lymph # (Auto) 0.6 L [place] # (Auto) 0.2 Eos # (Auto) 0.1 Baso # (Auto) 0.0 Abs Immat Gran (auto) 0.02 Absolute Neuts (auto) 2.2 Absolute Nucleated RBC 0.000 0.000 Nucleated RBC % (auto) 0.0 0.0 Creatinine 1.01 Estim Creat Clear Calc 58.2 Estimated GFR 56 Blood Type O Positive Antibody Screen NEGATIVE Preliminary micro results at discharge 09/20/23 18:57 Blood Culture - Preliminary Blood - Venous No growth after 48 hours. 09/20/23 18:54 Blood Culture - Preliminary Blood - Venous No growth after 48 hours. Discharge Plan Discharge Anticipated Discharge Date/Time: 09/24/23 09:15 Patient Disposition: Home Health Service Discharge Diagnosis: Cellulitis of the arm, otitis media externa Referrals: Shu PRUETT [Outside] - 3-5 Days ([facility]) John Elizalde DO, MD [Primary Care Provider] - 1 Week Discharge Medications: New amoxicillin-pot clavulanate 875-125 mg Tablet 1 tab PO Q12H Qty: 9 0RF doxycycline monohydrate 100 mg Capsule 100 mg PO Q12H Qty: 9 0RF Continued albuterol sulfate 2.5 mg /3 mL (0.083 %) solution for nebulization 2.5 mg inhalation TID clonazepam 0.5 mg tablet 0.5 mg PO TID PRN (Reason: anxiety) morphine 100 mg tablet extended release 100 mg PO BID duloxetine 30 mg capsule,delayed release(DR/EC) 30 mg PO DAILY arformoterol 15 mcg/2 mL solution for nebulization 2 ml inhalation BID oxycodone 10 mg tablet 20 mg PO Q4H PRN (Reason: pain) silver sulfadiazine 1 % cream 1 appl topical DAILY levothyroxine 100 mcg tablet 100 mcg PO DAILY trazodone 150 mg tablet 150 mg PO BEDTIME omeprazole 20 mg capsule,delayed release(DR/EC) 20 mg PO DAILY budesonide 0.5 mg/2 mL suspension for nebulization 0.5 mg inhalation BID duloxetine 60 mg capsule,delayed release(DR/EC) 60 mg PO DAILY Discharge Orders: Discharge Order (Routine); Ordered 09/24/23 Ordered By: Mehul Christian Diet: Advance to usual diet Activity on Discharge: As tolerated Stand Alone Forms: Patient Portal Discharge page Activity Restrictions/Additional Instructions: Topical Wound Care Recommendations: Right Chest Axilla - Cleanse with NS moist gauze, pat dry. Apply Triad to periwound - cover wound bed with cut to size Durafiber AG, cover with Foam dressing or ABD pad. change every other day. Continue follow up with Outpatient Wound Clinic and follow up with Dr. Gallardo for Lymphedema pump treatment. Consider Lymphedema clinic for treatment at [facility] outpatient Physical Therapy department or [facility] outpatient Therapy office in [place], [place] Care Plan Goals: recovery from cellulitis, sepis and ear infection Health Concerns: Cellulitis, ear infection and lymphadema of the right mar, chronic anemia Plan of Treatment: Take Doxycyline an Augmentin as recommended and follow up with Dr. Gallardo the vascular surgeon for lymphadema treatment Assessment: see above
--- NOTE | 2023-09-24 11:25 | MHC.CM.PN ---
DP: PT HAS BEEN MEDICALLY CLEARED FOR DC WITH NEW [facility] (FIRST CHOICE) FOR SN, NEW REFERRAL FOR [facility] RESPIRATORY SUPPLIES AND 02 VIA [facility]. [facility] UPDATED ON TODAY'S DC. RN AWARE. PT HAS OWN RIDE HOME.
[2023-09-24] MEDS: Amoxicillin/Potassium Clav 875 MG TABLET PO (11:37)
[2023-09-24] MEDS: Doxycycline Monohydrate 100 MG CAPSULE PO (11:37)
--- NOTE | 2023-09-24 11:37 | P.F2F_ITS ---
Service Date Service Date: 09/24/23 Encounter Date of encounter: 09/24/23 Reasons for Services Signs and symptoms assessed: weakness from hospital and breast cancer Reason for long term: wound care and medication management Homebound: Leaving the home is medically contraindicated at this time without the asist of a device and/or another person due th the listed conditions above and below. Reason homebound: fall risk related to blood pressure changes and immunosuppression / infection risk Homebound supporting statement: Homebound due to weakness from hospitalization underlying history of cancer with lymphadema of the right arm and threfore needs the assistance of another person Certification: Based on the above findings, I certify that this patient is confined to the home and needs intermittent long term care, physical therapy and/or speech therapy, or continues to need occupational therapy. The patient is under my care, and I have initiated the establishment of the plan of care. The patient will be followed by a physician who will periodically review the plan of care. Time Spent With Patient Time: Total time managing care of this patient today ____ minutes.
== END 2023-09-24 14:10 | disposition home health service (06) | DRG 720 ==
LOC: HO.ED 21:40 → HO.EDOVER 22:02 → HO.S3 23:45
PROVIDERS: Nurse Practitioner Family; Student in an Organized Health Care Education/Training Program; Admitting Provider Physician Assistant; Emergency Provider Internal Medicine; PCP Internal Medicine; Visit Provider Internal Medicine
DX: A41.9 Sepsis, unspecified organism (principal); D63.1 Anemia in chronic kidney disease; R65.20 Severe sepsis without septic shock; I12.9 Hypertensive chronic kidney disease with stage 1 through stage 4 chronic kidney disease, or unspecified chronic kidney disease; G89.29 Other chronic pain; T22.0 Burn of unspecified degree of shoulder and upper limb, except wrist and hand; Y84.2 Radiological procedure and radiotherapy as the cause of abnormal reaction of the patient, or of later complication, without mention of misadventure at the time of the procedure; E03.9 Hypothyroidism, unspecified; L03.113 Cellulitis of right upper limb; N18.30 Chronic kidney disease, stage 3 unspecified; H66.91 Otitis media, unspecified, right ear; H66.3X1 Other chronic suppurative otitis media, right ear; J44.9 Chronic obstructive pulmonary disease, unspecified; Z85.3 Personal history of malignant neoplasm of breast; Z20.822 Contact with and (suspected) exposure to COVID-19; Z93.0 Tracheostomy status; Z90.13 Acquired absence of bilateral breasts and nipples; Z85.21 Personal history of malignant neoplasm of larynx; Z87.891 Personal history of nicotine dependence; Z79.890 Hormone replacement therapy; Z79.899 Other long term (current) drug therapy
CPT/HCPCS: 0241U; 36415; 70481; 71046; 71250; 73560; 80048; 80076; 80202; 82550; 82565; 83605; 83735; 83880; 84484; 85025; 85027; 85610; 86850; 86900; 86901; 87040; 93005; 93971; 94640; 99285; J1170; J1650; J2543; J3370; J3371; J7120

== ENCOUNTER → 2023-09-20 18:36 | Outpatient (BNV) | payer MEDICAID, SELFPAY | PROVIDERS: Admitting Provider Physician Assistant; Emergency Provider Internal Medicine; PCP Internal Medicine; Visit Provider Internal Medicine Cardiovascular Disease | DX: R94.31 Abnormal electrocardiogram [ECG] [EKG] (principal) | CPT/HCPCS: 93010 ==

== ENCOUNTER → 2023-09-20 21:53 | Outpatient (BNV) | payer MEDICAID, SELFPAY | PROVIDERS: Admitting Provider Physician Assistant; Emergency Provider Internal Medicine; PCP Internal Medicine; Visit Provider Physician Assistant | DX: A41.9 Sepsis, unspecified organism (principal); R65.20 Severe sepsis without septic shock; H60.501 Unspecified acute noninfective otitis externa, right ear; H66.91 Otitis media, unspecified, right ear; I89.0 Lymphedema, not elsewhere classified | CPT/HCPCS: 99223; 99232; 99239; G0180 ==

== ENCOUNTER → 2023-09-20 21:53 | Outpatient (BNV) | payer MEDICAID, SELFPAY | PROVIDERS: Admitting Provider Physician Assistant; Emergency Provider Internal Medicine; PCP Internal Medicine; Visit Provider Surgery Vascular Surgery | DX: I89.0 Lymphedema, not elsewhere classified (principal) | CPT/HCPCS: 99222 ==

== ENCOUNTER 2023-09-27 11:12 | Emergency (ER) | payer MEDICAID, SELFPAY ==
--- NOTE | ~2023-09-27 | XR_ITS ---
EXAMINATION: XR CHEST CLINICAL INFORMATION: Shortness of breath COMPARISON: 09/20/2023 TECHNIQUE: Frontal view of the chest was obtained. FINDINGS: Left IJ central venous catheter terminates near the cavoatrial junction. No focal consolidation, pulmonary edema, or pleural effusion. Parenchymal scarring at the right lung apex. The cardiomediastinal silhouette is stable. Multiple surgical clips of the right axilla. XR/XR chest 1V IMPRESSION: No acute cardiopulmonary findings.
[2023-09-27 11:51] VITALS: BP 141/104; PULSE 120; RESP 18; TEMP 36.9; O2SAT 97; BMI 33.1
--- NOTE | 2023-09-27 11:53 | ED_ITS ---
HPI - Weakness General Chief complaint: Chest Pain Stated complaint: high bp infection fever multi issues Related Data Home Medications Medication Instructions Recorded Confirmed albuterol sulfate 2.5 mg/3 mL 2.5 mg inhalation TID 09/20/23 09/20/23 (0.083 %) solution for nebulization arformoterol 15 mcg/2 mL solution 2 ml inhalation BID 09/20/23 09/20/23 for nebulization budesonide 0.5 mg/2 mL suspension 0.5 mg inhalation BID 09/20/23 09/20/23 for nebulization clonazepam 0.5 mg tablet 0.5 mg PO TID PRN anxiety 09/20/23 09/20/23 duloxetine 30 mg capsule,delayed 30 mg PO DAILY 09/20/23 09/20/23 release duloxetine 60 mg capsule,delayed 60 mg PO DAILY 09/20/23 09/20/23 release levothyroxine 100 mcg tablet 100 mcg PO DAILY 09/20/23 09/20/23 morphine 100 mg tablet,extended 100 mg PO BID 09/20/23 09/20/23 release omeprazole 20 mg capsule,delayed 20 mg PO DAILY 09/20/23 09/20/23 release oxycodone 10 mg tablet 20 mg PO Q4H PRN pain 09/20/23 09/20/23 silver sulfadiazine 1 % topical 1 appl topical DAILY 09/20/23 09/20/23 cream trazodone 150 mg tablet 150 mg PO BEDTIME 09/20/23 09/20/23 Previous Rx's Medication Instructions Recorded amoxicillin 875 mg-potassium 1 tab PO Q12H #9 tabs 09/24/23 clavulanate 125 mg tablet doxycycline monohydrate 100 mg 100 mg PO Q12H #9 caps 09/24/23 capsule [id number] 3.5 3 drp otic (ear) right QID 5 days 09/24/23 mg-10,000 unit/mL-1 % ear #10 mL drops,susp Allergies Allergy/AdvReac Type Severity Reaction Status Date / Time No Known Allergies Allergy Verified 09/20/23 18:05 [facility] Past Medical History Medical History (Updated 09/27/23 @ 22:45 by Joanie Hooker NP) Mixed conductive and sensorineural hearing loss of right ear Former smoker Mood disorder Dysphagia Hypertension Hypothyroidism GERD (gastroesophageal reflux disease) Laryngeal carcinoma Chronic suppurative otitis media Metastatic malignant neoplasm to breast COPD (chronic obstructive pulmonary disease) Surgical History (Updated 09/20/23 @ 22:21 by LASHONDA Wong) History of tympanoplasty of right ear S/P bilateral mastectomy Social History Social History Household Members: None Housing: House Patient Tobacco Use Status: Former Tobacco user Quit Date: 2020 Tobacco use type: Cigarette and Cigar Years Smoked: 40 e-Cigarette/Vaping Use: Never Used Second Hand Smoke Exposure: No Substance Use Type: Marijuana Advance Directives: No Advance Directives Information Provided: No service: No Physical Exam 2 Vital Signs: Vital Signs: Last Vital Signs Temp 98.5 F 09/27/23 11:51 Pulse 120 H 09/27/23 11:51 Resp 18 09/27/23 11:51 BP 141/104 H 09/27/23 11:51 Pulse Ox 97 09/27/23 11:51 O2 Del Method Room Air 09/27/23 11:51 BMI result Body Mass Index 33.1 Course Course Course Narrative: This is a rapid medical exam: Additional HPI, ROS, PE not included below will be deferred to primary provider. Concerns for weakness, dizziness, fever, hypertension. Reports that she took Tylenol prior to coming to the ED. Sepsis 1 week ago for extensive cellulitis right upper extremity and severe right-sided otitis media/externa and admitted here at . Discharged on Augmentin and Doxycycline hx tracheostomy Medical Decision Making Lab Data 09/27/23 12:15 09/27/23 12:15 Labs: Lab Results 09/27/23 Range/Units 12:15 WBC 6.3 (4.8-10.8) X10*3/uL RBC 3.83 L D (4.20-5.50) X10*6/uL Hgb 9.4 L D (12.0-16.0) g/dl Hct 31.4 L D (37.0-47.0) % MCV 82.0 (80.0-98.0) fL MCH 24.5 L (27.0-33.0) pg MCHC 29.9 L (31.0-35.0) g/dl RDW 17.5 H (11.0-16.0) % Plt Count 362 D (160-400) X10*3/uL MPV 9.6 (9.4-12.3) fL Immature Gran % (Auto) 0.9 H (0.0-0.4) % Neut % (Auto) 76.7 H (45-73) % Lymph % (Auto) 16.4 L (20-40) % [place] % (Auto) 5.5 (2-11) % Eos % (Auto) 0.2 (0-4) % Baso % (Auto) 0.3 (0-2) % Lymph # (Auto) 1.0 L (1.2-4.9) X10*3/uL [place] # (Auto) 0.4 (0.1-1.2) X10*3/uL Eos # (Auto) 0.0 (0.0-0.4) X10*3/uL Baso # (Auto) 0.0 (0.0-0.2) X10*3/uL Abs Immat Gran (auto) 0.06 H (0.00-0.03) X10*3/uL Absolute Neuts (auto) 4.9 (2.0-8.3) x10*3/uL Absolute Nucleated RBC 0.020 H (0.0-0.012) X10*3/uL Nucleated RBC % (auto) 0.3 H (0.0-0.2) /100WBC Sodium 140 (135-145) mmol/L Potassium 3.7 (3.3-5.1) mmol/L Chloride 107 (96-108) mmol/L Carbon Dioxide 24 (22-29) mmol/L Anion Gap 13 (12-20) BUN 8 L (9-16) mg/dL Creatinine 1.12 (0.5-1.4) mg/dL Estim Creat Clear Calc 50.3 Estimated GFR 49 Random Glucose 111 (60-115) mg/dL Lactic Acid 1.7 (0.5-2.0) mmol/L Calcium 9.3 D (8.4-10.2) mg/dL Magnesium 2.0 (1.6-2.6) mg/dL Total Bilirubin 0.3 (0.0-1.0) mg/dL AST 21 (5-31) U/L ALT 11 (0-31) U/L Alkaline Phosphatase 130 H (39-117) U/L Troponin I High Sens 2.8 (<3.5-17.0) ng/L Total Protein 8.0 (6.5-8.0) g/dL Albumin 3.8 (3.5-5.0) g/dL Influenza Type A (PCR) NEGATIVE (Negative) Influenza Type B (PCR) NEGATIVE (Negative) RSV RNA Qual (PCR) NEGATIVE (Negative) SARS-CoV-2 RNA (RT-PCR) NEGATIVE (Negative) Discharge Plan Discharge Clinical Impression: Left before treatment completed Patient Disposition: Left W/O Completing Treatment Prescriptions: No Action albuterol sulfate 2.5 mg /3 mL (0.083 %) solution for nebulization 2.5 mg inhalation TID clonazepam 0.5 mg tablet 0.5 mg PO TID PRN (Reason: anxiety) morphine 100 mg tablet extended release 100 mg PO BID duloxetine 30 mg capsule,delayed release(DR/EC) 30 mg PO DAILY arformoterol 15 mcg/2 mL solution for nebulization 2 ml inhalation BID oxycodone 10 mg tablet 20 mg PO Q4H PRN (Reason: pain) silver sulfadiazine 1 % cream 1 appl topical DAILY levothyroxine 100 mcg tablet 100 mcg PO DAILY trazodone 150 mg tablet 150 mg PO BEDTIME omeprazole 20 mg capsule,delayed release(DR/EC) 20 mg PO DAILY budesonide 0.5 mg/2 mL suspension for nebulization 0.5 mg inhalation BID duloxetine 60 mg capsule,delayed release(DR/EC) 60 mg PO DAILY doxycycline monohydrate 100 mg Capsule 100 mg PO Q12H Qty: 9 0RF amoxicillin-pot clavulanate 875-125 mg Tablet 1 tab PO Q12H Qty: 9 0RF [id number]-[id number]-UY 3.5-10,000-1 mg/mL-unit/mL-% Drops,Suspension 3 drp otic (ear) right QID 5 Days Qty: 10 0RF Discharge Date/Time: 09/27/23 18:36
--- NOTE | 2023-09-27 12:00 | ECG_ITS ---
Test Reason : cp Blood Pressure : / mmHG Vent. Rate : 107 BPM Atrial Rate : 107 BPM P-R Int : 136 ms QRS Dur : 084 ms QT Int : 380 ms P-R-T Axes : 027 -22 028 degrees QTc Int : 507 ms Sinus tachycardia Inferior infarct (cited on or before 20-SEP-2023) Abnormal ECG When compared with ECG of 20-SEP-2023 18:45, No significant change was found Referred By: Joanie Hooekr Electronically Signed By:JOHN RUANO
[2023-09-27 12:23] LABS: MANUAL DIFF FLAG NO
[2023-09-27 12:26] LABS: Basophils Percent Auto 0.3 % (0-2); Eosinophils Percent Auto 0.2 % (0-4); Hematocrit 31.4 % (37.0-47.0); Hemoglobin 9.4 g/dl (12.0-16.0); Imm Gran Abs Auto 0.06 X10*3/uL (0.00-0.03); Imm Gran Pct Auto 0.9 % (0.0-0.4); Lymphocytes Percent Auto 16.4 % (20-40); Mean Corpuscular HGB Conc 29.9 g/dl (31.0-35.0); Mean Corpuscular Hemoglobin 24.5 pg (27.0-33.0); Mean Platelet Volume 9.6 fL (9.4-12.3); Monocytes Absolute Auto 0.4 X10*3/uL (0.1-1.2); Monocytes Percent Auto 5.5 % (2-11); NRBC Pct Auto 0.3 /100WBC (0.0-0.2); Neutrophils Absolute Auto 4.9 x10*3/uL (2.0-8.3); Neutrophils Percent Auto 76.7 % (45-73); Platelet Count 362 X10*3/uL (160-400); Red Blood Count 3.83 X10*6/uL (4.20-5.50); Red Cell Distribution Width 17.5 % (11.0-16.0); White Blood Count 6.3 X10*3/uL (4.8-10.8)
[2023-09-27 12:45] LABS: Lactic Acid 1.7 mmol/L (0.5-2.0)
[2023-09-27 12:47] LABS: Alanine Aminotransferase 11 U/L (0-31); Albumin Level 3.8 g/dL (3.5-5.0); Alkaline Phosphatase 130 U/L (39-117); Anion Gap 13 (12-20); Aspartate Amino Transferase 21 U/L (5-31); Bilirubin Total 0.3 mg/dL (0.0-1.0); Blood Urea Nitrogen 8 mg/dL (9-16); Calcium 9.3 mg/dL (8.4-10.2); Carbon Dioxide 24 mmol/L (22-29); Chloride 107 mmol/L (96-108); Creatinine Clr Calc Pharmacy 50.3; Estimated Glomerular Filt Rate 49; Glucose Random 111 mg/dL (60-115); Potassium 3.7 mmol/L (3.3-5.1); Sodium 140 mmol/L (135-145)
[2023-09-27 12:56] LABS: Troponin-I High Sensitivity 2.8 ng/L (<3.5-17.0)
[2023-09-27 13:48] LABS: Influenza A PCR NEGATIVE (Negative); Influenza B PCR NEGATIVE (Negative); Resp Syncy Virus RNA Qual PCR NEGATIVE (Negative); SARS COV2 PCR INHOUSE NEGATIVE (Negative)
--- NOTE | 2023-09-27 15:09 | MHC.CM.ED ---
Received notification from [facility] that patient is active with their agency. Referral made in [facility] so [facility] can follow for d/c needs.
== END 2023-09-27 18:36 | disposition left against medical advice (07) ==
PROVIDERS: Nurse Practitioner Family; Emergency Provider Emergency Medicine; PCP Internal Medicine
DX: R50.9 Fever, unspecified (principal); I10 Essential (primary) hypertension; J44.9 Chronic obstructive pulmonary disease, unspecified; Z11.52 Encounter for screening for COVID-19; Z20.828 Contact with and (suspected) exposure to other viral communicable diseases
CPT/HCPCS: 0241U; 36415; 71045; 80053; 83605; 83735; 84484; 85025; 87040; 93005; 99283

== ENCOUNTER → 2023-09-27 12:00 | Outpatient (BNV) | payer MEDICAID, SELFPAY | PROVIDERS: Emergency Provider Emergency Medicine; PCP Internal Medicine; Visit Provider Internal Medicine | DX: R00.0 Tachycardia, unspecified (principal) | CPT/HCPCS: 93010 ==

== ENCOUNTER 2024-01-13 12:38 | Inpatient (IN) | payer MEDICAID, SELFPAY ==
--- NOTE | ~2024-01-13 | US_ITS ---
EXAMINATION: US VENOUS WITH DOPPLER UPPER EXTREMITY, RIGHT CLINICAL INFORMATION: Rule out DVT COMPARISON: Right upper extremity duplex on 09/20/2023 TECHNIQUE: Ultrasound of the upper extremity is performed using compression sonography and color and pulse Doppler flow with assessment of augmentation of flow. There is also imaging and Doppler assessment of the jugular and subclavian veins. Spectral analysis with color-flow imaging is performed. FINDINGS: Respiratory variation, normal compression, and augmented flow are noted throughout the upper extremity including the axillary, brachial, cubital, and radial and ulnar veins. There is normal flow in the internal jugular and visualized portion of the subclavian veins. There is no visible deep or superficial thrombophlebitis. If the patient's symptoms progress, a followup ultrasound in 5 -7 days might be of value to exclude proximal propagation from a nonvisualized distal arm vein. US/US venous duplex UE RT IMPRESSION: No DVT demonstrated in the right upper extremity
--- NOTE | ~2024-01-13 | XR_ITS ---
EXAMINATION: XR CHEST CLINICAL INFORMATION: Pneumonia and congestion with shortness of breath and chest pain COMPARISON: 09/27/2023 TECHNIQUE: 2 views of the chest were obtained. FINDINGS: The left chest wall jugular port is present with its tip in the SVC. Scarring is present at the right apex with multiple surgical clips in the right axilla. No other significant abnormality is noted involving the heart, lungs, mediastinum, bony thorax or soft tissues. XR/XR chest 2V IMPRESSION: No acute intrathoracic disease.
--- NOTE | ~2024-01-13 | US_ITS ---
US ARTERIAL RIGHT UPPER EXTREMITY CLINICAL HISTORY: Rule out ischemic arterial obstruction. COMPARISON: No relevant prior studies are available for comparison. TECHNIQUE: Real-time grayscale, spectral analysis, and color Doppler imaging of the right upper extremity was performed. FINDINGS: PLAQUE: None. RIGHT UPPER EXTREMITY WAVEFORMS AND PEAK SYSTOLIC VELOCITIES Subclavian artery: Not visualized Axillary artery: Monophasic PSV: 83 cm/sec Brachial artery: Monophasic PSV: 92 cm/sec Radial artery: Monophasic PSV: 61 cm/sec Ulnar artery: Monophasic PSV: 44 cm/sec VELOCITIES: No significant increase is seen distally. US/US arterial duplex UE RT IMPRESSION: Monophasic waveforms throughout the right upper extremity. The subclavian artery is not well evaluated.
[2024-01-13 12:55] VITALS: BP 158/64; PULSE 98; RESP 20; TEMP 37.2; O2SAT 95; BMI 32.0
--- NOTE | 2024-01-13 13:02 | ECG_ITS ---
Test Reason : chest pain Blood Pressure : / mmHG Vent. Rate : 095 BPM Atrial Rate : 095 BPM P-R Int : 136 ms QRS Dur : 084 ms QT Int : 374 ms P-R-T Axes : 027 -19 018 degrees QTc Int : 469 ms Normal sinus rhythm Inferior infarct (cited on or before 20-SEP-2023) Abnormal ECG When compared with ECG of 27-SEP-2023 12:05, No significant change was found Referred By: Generic ED Physician Electronically Signed By:Rolando Roa
[2024-01-13 16:03] LABS: Basophils Percent Auto 0.2 % (0-2); Eosinophils Absolute Auto 0.1 X10*3/uL (0.0-0.4); Eosinophils Percent Auto 2.2 % (0-4); Hematocrit 29.1 % (37.0-47.0); Hemoglobin 8.2 g/dl (12.0-16.0); Imm Gran Abs Auto 0.01 X10*3/uL (0.00-0.03); Imm Gran Pct Auto 0.2 % (0.0-0.4); Lymphocytes Absolute Auto 0.6 X10*3/uL (1.2-4.9); Lymphocytes Percent Auto 11.3 % (20-40); Mean Corpuscular HGB Conc 28.2 g/dl (31.0-35.0); Mean Corpuscular Hemoglobin 23.4 pg (27.0-33.0); Mean Corpuscular Volume 82.9 fL (80.0-98.0); Mean Platelet Volume 10.2 fL (9.4-12.3); Monocytes Absolute Auto 0.3 X10*3/uL (0.1-1.2); Monocytes Percent Auto 5.2 % (2-11); Neutrophils Absolute Auto 4.4 x10*3/uL (2.0-8.3); Neutrophils Percent Auto 80.9 % (45-73); Platelet Count 260 X10*3/uL (160-400); Red Blood Count 3.51 X10*6/uL (4.20-5.50); Red Cell Distribution Width 17.6 % (11.0-16.0); White Blood Count 5.4 X10*3/uL (4.8-10.8)
[2024-01-13 16:05] LABS: MANUAL DIFF FLAG NO
[2024-01-13 16:19] LABS: Lactic Acid 3.4 mmol/L (0.5-2.0)
[2024-01-13 16:21] VITALS: BP 136/90; PULSE 134; RESP 22; TEMP 36.6; O2SAT 95
[2024-01-13 16:21] LABS: Alanine Aminotransferase < 5 U/L (0-31); Albumin Level 3.5 g/dL (3.5-5.0); Alkaline Phosphatase 97 U/L (39-117); Anion Gap 12 (12-20); Aspartate Amino Transferase 9 U/L (5-31); Bilirubin Total 0.2 mg/dL (0.0-1.0); Blood Urea Nitrogen 10 mg/dL (9-16); Calcium 8.9 mg/dL (8.4-10.2); Carbon Dioxide 26 mmol/L (22-29); Chloride 104 mmol/L (96-108); Creatinine Clr Calc Pharmacy 56.4; Estimated Glomerular Filt Rate 50; Glucose Random 127 mg/dL (60-115); Sodium 138 mmol/L (135-145); Total Protein 7.4 g/dL (6.5-8.0)
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
[2024-01-13] MEDS: Piperacillin Sodium/Tazobactam 3.375 GM in 0.9 % Sodium Chloride 50 ML IV ×2 (17:44→23:05)
[2024-01-13] MEDS: 0.9 % Sodium Chloride 1,000 ML 999 ML IV (17:44)
[2024-01-13 18:01] LABS: Reflex Lactate? Lactic Acid Added
[2024-01-13] MEDS: vancomycin/NS 2,000 MG/500 ML PLAST..BAG 250 MG IV (19:14)
--- NOTE | 2024-01-13 19:14 | PC.NURSE ---
IVF/abx delayed d/t patient only 1 arm for access/difficulty stick/only allowed for 22 in hand.
[2024-01-13 19:15] LABS: ~Lactic Acid-LAB USE ONLY 1.4 mmol/L (0.5-2.0)
--- NOTE | 2024-01-13 19:58 | P.HPHOSP_ITS ---
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 She states had a prescription for augmentin at home and had been taking this with some improvement but ran out. Symptoms recurred 4 days ago and have been worsening. Reports a 9/10 pain in the R chest and RUE. Has chronic pain issues in this area and is followed by [facility] and [facility] wound clinic on chronic narcotics for pain management. Since arival, has been tachycardic to 134, improved to 80s on admission and tachypneic. She is afebrile. No leukocytosis. Renal function electrolyte levels normal. Lactic acid 3.4, improved to 1.4 following IV fluids. Chest x-ray negative for acute cardiopulmonary abnormality. Arterial Doppler of the right upper extremity negative for any significant PND. Venous duplex of the right upper extremity also negative for DVT. In the ED, has received IV fluids, vancomycin, and Zosyn. Review of Systems 2 Review of Systems: Yes all other systems are reviewed and are negative [facility] Medical History Mixed conductive and sensorineural hearing loss of right ear Former smoker Mood disorder Dysphagia Hypertension Hypothyroidism GERD (gastroesophageal reflux disease) Laryngeal carcinoma Chronic suppurative otitis media Metastatic malignant neoplasm to breast COPD (chronic obstructive pulmonary disease) Surgical History History of tympanoplasty of right ear S/P bilateral mastectomy Social History Household Members: None Housing: House Patient Tobacco Use Status: Former Tobacco user Tobacco use type: Cigarette and Cigar Years Smoked: 40 e-Cigarette/Vaping Use: Never Used Second Hand Smoke Exposure: No Substance Use Type: Marijuana Advance Directives: No Advance Directives Information Provided: Yes Do you have a plan to hurt others: No Plan service: No Meds Allergies Allergy/AdvReac Type Severity Reaction Status Date / Time No Known Allergies Allergy Verified 01/13/24 12:58 Active Medications: Current Medications Acetaminophen (Acetaminophen 325 Mg Tablet) 650 mg PO Q6H PRN PRN Reason: Pain, Mild (Pain Scale 1-3), fever or headache Calcium Carbonate (Calcium Carbonate 750 Mg Tab.Chew) 750 mg PO Q4H PRN PRN Reason: Heartburn Enoxaparin Sodium (Enoxaparin Sodium 40 Mg/0.4 Ml Syringe) 40 mg SUBCUT Q24H SUNNI Piperacillin Sod/Tazobactam (Sod 3.375 gm/ Sodium Chloride) 50 mls @ 100 mls/hr IV Q6H SUNNI Magnesium Hydroxide (Milk Of Magnesia 30 Ml Oral.Susp) 30 ml PO DAILY PRN PRN Reason: Constipation Melatonin (Melatonin 3 Mg Tablet) 6 mg PO BEDTIME PRN PRN Reason: Insomnia Pharmacy Consult (Consult Rx Vancomycin Dosing) 1 each MISCELLANE DAILY PRN PRN Reason: Consult order Sodium Chloride (0.9 % Sodium Chloride Flush 3 Ml Syringe) 3 ml IVFLUSH QSHIFT [facility] Home Medications ?Medication ?Instructions ?Recorded ?Confirmed ?Last Taken ?Type albuterol sulfate 2.5 mg/3 mL 2.5 mg inhalation TID 09/20/23 09/20/23 09/20/23 History (0.083 %) solution for nebulization arformoterol 15 mcg/2 mL solution 2 ml inhalation BID 09/20/23 09/20/23 09/20/23 History for nebulization budesonide 0.5 mg/2 mL suspension 0.5 mg inhalation BID 09/20/23 09/20/23 09/20/23 History for nebulization clonazepam 0.5 mg tablet 0.5 mg PO TID PRN anxiety 09/20/23 09/20/23 Unknown History duloxetine 30 mg capsule,delayed 30 mg PO DAILY 09/20/23 09/20/23 09/20/23 History release duloxetine 60 mg capsule,delayed 60 mg PO DAILY 09/20/23 09/20/23 09/20/23 History release levothyroxine 100 mcg tablet 100 mcg PO DAILY@0600 09/20/23 09/20/23 09/20/23 History morphine 100 mg tablet,extended 100 mg PO BID 09/20/23 09/20/23 09/20/23 History release omeprazole 20 mg capsule,delayed 20 mg PO DAILY@0630 09/20/23 09/20/23 Unknown History release oxycodone 10 mg tablet 20 mg PO Q4H PRN pain 09/20/23 09/20/23 09/20/23 History silver sulfadiazine 1 % topical 1 appl topical DAILY 09/20/23 09/20/23 09/20/23 History cream trazodone 150 mg tablet 150 mg PO BEDTIME 09/20/23 09/20/23 09/19/23 History Physical Exam 2 Vital Signs and Narrative: Vital Signs: Last Vital Signs Temp 97.8 F 01/13/24 16:21 Pulse 134 H 01/13/24 16:21 Resp 22 H 01/13/24 16:21 BP 136/90 H 01/13/24 16:21 Pulse Ox 95 01/13/24 16:21 O2 Del Method Room Air 01/13/24 16:21 BMI result Body Mass Index 32.0 Constitutional - Awake and Alert, No apparent distress Eyes - PERRLA, EOMI Cardiovascular - S1S2, RRR, No edema Respiratory - Normal lung expansion, Normal respiratory effort, No respiratory distress, CTA bilaterally Chest- s/p bilateral mastectomy. Chronic wound R axilla with pink edges, clean appearing without any active drainage Gastrointestinal - NT / ND; +BS; No rebound or guarding Extremities - no calf tenderness bilaterally, no swelling Musculoskeletal - Normal inspection, normal ROM Skin - Warm/Dry. Significant soft tissue swelling, warmth, erythema covering the entirety of the RUE excluding the shoulder Neurological - Alert & oriented x3, CN II-XII in tact, 5/5 strength BUE and BLE Psychological - Appropriate affect. Results Labs 01/13/24 15:57 01/13/24 15:57 Labs: Laboratory Results - last 24 hr 01/13/24 01/13/24 15:57 18:51 MCV 82.9 MCH 23.4 L MCHC 28.2 L RDW 17.6 H Plt Count 260 D MPV 10.2 Immature Gran % (Auto) 0.2 Neut % (Auto) 80.9 H Lymph % (Auto) 11.3 L [place] % (Auto) 5.2 Eos % (Auto) 2.2 Baso % (Auto) 0.2 Lymph # (Auto) 0.6 L [place] # (Auto) 0.3 Eos # (Auto) 0.1 Baso # (Auto) 0.0 Abs Immat Gran (auto) 0.01 Absolute Neuts (auto) 4.4 Absolute Nucleated RBC 0.000 Nucleated RBC % (auto) 0.0 Anion Gap 12 Estim Creat Clear Calc 56.4 Estimated GFR 50 Random Glucose 127 H Lactic Acid 3.4 H* Lactic Acid F/U @ 2Hr 1.4 Calcium 8.9 Total Bilirubin 0.2 AST 9 ALT < 5 Alkaline Phosphatase 97 Total Protein 7.4 Albumin 3.5 Imaging Radiologist's Impressions: Impressions Chest X-Ray 01/13/24 13:55 IMPRESSION: No acute intrathoracic disease. Duplex Scan Upper Extremity Artery 01/13/24 17:24 IMPRESSION: Monophasic waveforms throughout the right upper extremity. The subclavian artery is not well evaluated. 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 Tachycardic, tachypneic. No leukocytosis. Lactic acidosis 3.4, improved to 1.4 with IV fluids. No septic shock -venous duplex negative for DVT, arterial doppler negative for significant PAF -IV vancomycin Zosyn (initiated 01/12) -follow CBC, cultures # Lymphedema RUE/chronic burn/Wound right axilla s/p radiation therapy for metastatic breast cancer s/p bilateral mastectomy -apply Silvadene to wound daily and cover with dry dressing, follows with [facility]/wound clinic at [facility] -wound RN consult #CKD stage 3 -renal function baseline #Normocytic anemia- unclear chronicity, suspect chronic r/t chronic disease -h/h above transfusion threshold -follow CBC # hypertension -not on antihypertensives # chronic pain disorder -continue MS Contin, oxycodone p.r.n. # hypothyroidism -continue Synthroid # GERD -PPI # COPD -no acute exacerbation -continue maintenance inhalers, albuterol p.r.n. #Laryngeal cacinoma -voicebox DVT prophylaxis-Lovenox Full code Patient requires inpatient stay at least 2 midnights for management of severe sepsis secondary to extensive cellulitis of the right upper extremity encompassing nearly 100% of the extremity requiring IV antibiotics and close monitoring of hemodynamics to monitor for and prevent decompensation Quality Stroke Does the patient have a stroke diagnosis?: No VTE Prior VTE?: No VTE Risk Level:: Medical - moderate - high VTE Device Contraindication: Treatment Not Indicated VTE Drug Contraindication: N/A - Med Ordered
[2024-01-13] MEDS: oxyCODONE HCl Immed Release 5 MG TABLET 10 MG PO (20:17)
[2024-01-13] MEDS: Enoxaparin Sodium 40 MG/0.4 ML SYRINGE SUBCUT (20:17)
[2024-01-13 20:21] VITALS: BP 128/67; PULSE 94; RESP 18; TEMP 36.9; O2SAT 92
--- NOTE | 2024-01-13 20:30 | PHA.PROG ---
Admission Date/Time: January 13, 2024 19:50 Indication:sepsis Weight in k.6 kg Adjusted body weight in K.6 kg Blanding body weight in K.7 kg Obesity Dosing Indication % IBW: Serum Creatinine - Last 168 Hours 01/13/24 15:57 Creatinine 1.10 Estimated CrCl and GFR - Last 168 Hours 01/13/24 15:57 Estim Creat Clear Calc 56.4 Estimated GFR 50 Vancomycin Loading Dose: 2000 mg Current Vancomycin Dosing Regimen: 750 mg q12h Vancomycin Monitoring using AUC goal of 400 - 600 range with trough as surrogate marker: predicted AUC 499 Date and Time for next Vancomycin Level to be drawn: random before 3rd dose 01/14/24 @1700 Pharmacist Comments on Vancomycin Plan: obese, ckd Vancomycin dosing will take advantage of [employer] as a clinical decision support tool that uses Bayesian modeling to calculate individual patient's pharmacokinetic parameters and forecast the patient's drug concentration time course with the target goal AUC 24 range of 400 - 600 mg/L/hr.
--- NOTE | 2024-01-13 20:31 | PHA.MEDREC ---
Pharmacy Consult ? Medication Reconciliation Pharmacy has completed the medication reconciliation. Spoke to patient to confirm med list .Patient states she isn't on any antibiotics at this time.
[2024-01-13] MEDS: clonazePAM 0.5 MG TABLET PO (22:29)
[2024-01-13] MEDS: traZODone HCL 50 MG TABLET 150 MG PO (22:29)
[2024-01-13] MEDS: DULoxetine HCl 30 MG CAPSULE.DR PO (22:29)
[2024-01-14] VITALS (7 sets, daily range): BP systolic 122–176; BP diastolic 56–88; PULSE 68–94; RESP 14–20; TEMP 36.1–36.6; O2SAT 89–97; BMI 32.7; BMI 32.5
[2024-01-14 05:19] LABS: Creatinine Clr Calc Pharmacy 58.1; Estimated Glomerular Filt Rate 52
[2024-01-14] MEDS: Piperacillin Sodium/Tazobactam 3.375 GM in 0.9 % Sodium Chloride 50 ML IV ×4 (05:34→22:20)
[2024-01-14] MEDS: Levothyroxine Sodium 100 MCG TABLET PO (05:35)
[2024-01-14] MEDS: Omeprazole 20 MG CAPSULE.DR PO (05:35)
[2024-01-14] MEDS: oxyCODONE HCl Immed Release 5 MG TABLET 20 MG PO ×2 (05:44→14:08)
[2024-01-14] MEDS: vancomycin HCL 750 MG in 0.9 % Sodium Chloride 250 ML 265 MG IV (07:45)
[2024-01-14] MEDS: Albuterol Sulfate (0.083%) 2.5 MG/3 ML VIAL.NEB INHALE ×3 (08:02→19:40)
[2024-01-14] MEDS: Budesonide 0.5 MG/2 ML AMPUL.NEB INHALE ×2 (08:02→19:40)
[2024-01-14] MEDS: DULoxetine HCl 60 MG CAPSULE.DR PO (09:14)
[2024-01-14] MEDS: Morphine Sulfate ER 30 MG TABLET.ER 90 MG PO ×2 (09:14→21:21)
[2024-01-14] MEDS: clonazePAM 0.5 MG TABLET PO ×3 (09:14→20:18)
--- NOTE | 2024-01-14 09:42 | MHC.CM.PN ---
CM MET WITH PT AT BEDSIDE. PT LIVES WITH STEP DAUGHTER. PT UTILIZES VOICE BOX TO COMMUNICATE AND IS HO-CHUNK IN RIGHT EAR. PT IS INDEPENDENT WITH MOBILITY. HAS HOME 02 (PRN) , NEBULIZER AND TRACH SUPPLIES VIA [employer]. +HCP ON FILE. PCP DR. ACEVES. PT IS ACTIVE WITH [facility] FOR NURSING
--- NOTE | 2024-01-14 09:42 | PC.NURSE ---
informed md of pt's elevated bp
--- NOTE | 2024-01-14 11:16 | HO.WOUND ---
Wound Consult: Initial 63yr old?female admitted to [facility] [place] [facility] [place] on [place] - See progress notes and H&P for detailed history.? Wound consult placed for Right upper chest chronic wound secondary to radiation.? Patient agreeable to assessment and photo documentation.? Patient reports she has been treating at the outpt wound clinic does not currently treat for lymphedema but reports she is still considering follow up with lymphedema clinic. At time of d/c patient should continue to follow up with Outpatient Wound Clinic for treatment. Right Upper Chest Etiology: ??Chronic Radiation Wound Measurements: 10.2cm x 4.2cm x 0.1cm Wound Bed: moist moist yellow slough marbled pink wound bed Drainage / Odor: light green carlson drainage noted - odor noted Edges: ? irregular Priti wound: ? Scar tissue noted - small area of maceration noted - no erythema noted - No Induration, Fluctuance or Warmth noted Pain: reports tenderness at times Goals of Treatment: ? Durafiber AG for moisture management and antimicrobial properties. Of note there is concern for pseudomonas invasion to the wound bed - if green drainage increases or blood culture confirm consider Dakins wet dressing for a few days to treat and then return to Durafiber . Recommendations: 1. Turn and Reposition every 2 hours and as needed for patient comfort.? Use pillows or wedges to support off loading positions. 2. Off Load all bony prominences with use of pillows and heel boots if needed.? Apply Preventative foams where needed. ? 3. Monitor for incontinence and moisture control, use barrier creams when needed for prevention and treatment. 4. Provide adequate and supplemental nutrition.? 5. Order low air loss mattress. 6. When applicable maintain blood glucose levels per Providers order. 7. Right Upper Chest - Cleanse with NS moist gauze, apply skin prep to periwound. Apply cut to size Durafiber AG, cover with foam dressing and change every other day. Follow up with outpatient wound clinic as scheduled. Re-consult wound care Nurse for wound deterioration or wound changes.
--- NOTE | 2024-01-14 11:50 | HO.PM.IMPN ---
Subjective Subjective Date of Service: 01/14/24 Interval History: Being followed for right upper extremity cellulitis. Complaining of persistent right upper extremity redness and swelling but improved since admission, denies fever, no chills, tolerating diet, no nausea, no vomiting, no abdominal pain or diarrhea, No acute events overnight. Review of Systems All other system are reviewed and are negative. Physical Exam Vital Signs: Vital Signs: Last Vital Signs Temp 96.9 F 01/14/24 08:59 Pulse 94 01/14/24 08:59 Resp 18 01/14/24 08:59 BP 176/88 H 01/14/24 08:59 Pulse Ox 94 01/14/24 08:59 O2 Del Method Room Air 01/14/24 08:59 BMI result Body Mass Index 32.5 Const: Other: General sitting comfortably in no acute distress. Anicteric sclera Neck trach collar, supple no JVD. CVS regular rate rhythm, Respiratory lungs clear to auscultation, no respiratory distress, no wheeze, no rhonchi. Gastrointestinal abdomen soft, non tender, bowel sounds audible, no guarding , no rigidity. Extremities LE no edema. Right upper extremity swelling and hyperemia extending from wrist to just below shoulder, slightly improved since yesterday Neuro non focal Skin: wound right axilla with pink edges, no active drainage noted Objective Data Active Medications Acetaminophen (Acetaminophen 325 Mg Tablet) 650 mg PO Q6H PRN PRN Reason: Pain, Mild (Pain Scale 1-3), fever or headache Albuterol Sulfate (Albuterol Sulfate (0.083%) 2.5 Mg/3 Ml Vial.Neb) 2.5 mg INHALE RTID [facility] Last Admin: 01/14/24 08:02 Dose: 2.5 mg Documented By: TANNER Budesonide (Budesonide 0.5 Mg/2 Ml Ampul.Neb) 0.5 mg INHALE RBID [facility] Last Admin: 01/14/24 08:02 Dose: 0.5 mg Documented By: TANNER Calcium Carbonate (Calcium Carbonate 750 Mg Tab.Chew) 750 mg PO Q4H PRN PRN Reason: Heartburn Clonazepam (Clonazepam 0.5 Mg Tablet) 0.5 mg PO TID [facility] Last Admin: 01/14/24 09:14 Dose: 0.5 mg Documented By: HO.LEAHYKE Docusate Sodium (Docusate Sodium 100 Mg Capsule) 100 mg PO DAILY PRN PRN Reason: Constipation Duloxetine HCl (Duloxetine Hcl 30 Mg Capsule.) 30 mg PO BEDTIME [facility] Last Admin: 01/13/24 22:29 Dose: 30 mg Documented By: LANA Duloxetine HCl (Duloxetine Hcl 60 Mg Capsule.) 60 mg PO DAILY [facility] Last Admin: 01/14/24 09:14 Dose: 60 mg Documented By: KENDRA Enoxaparin Sodium (Enoxaparin Sodium 40 Mg/0.4 Ml Syringe) 40 mg SUBCUT Q24H [facility] Last Admin: 01/13/24 20:17 Dose: 40 mg Documented By: LANA Piperacillin Sod/Tazobactam (Sod 3.375 gm/ Sodium Chloride) 50 mls @ 100 mls/hr IV Q6H [facility] Last Admin: 01/14/24 11:26 Dose: 100 mls/hr Documented By: LINA Vancomycin HCl 750 mg/ Sodium (Chloride) 265 mls @ 265 mls/hr IV Q12H [facility] Last Infusion: 01/14/24 09:00 Dose: Infused Documented By: LINA Levothyroxine Sodium (Levothyroxine Sodium 100 Mcg Tablet) 100 mcg PO DAILY@0600 [facility] Last Admin: 01/14/24 05:35 Dose: 100 mcg Documented By: LANA Magnesium Hydroxide (Milk Of Magnesia 30 Ml Oral.Susp) 30 ml PO DAILY PRN PRN Reason: Constipation Melatonin (Melatonin 3 Mg Tablet) 6 mg PO BEDTIME PRN PRN Reason: Insomnia Morphine Sulfate (Morphine Sulfate Er 30 Mg Tablet.Er) 90 mg PO BID [facility] Last Admin: 01/14/24 09:14 Dose: 90 mg Documented By: KENDRA Non-Formulary Medication (Arformoterol) 2 ml INHALE BID [facility] Last Admin: 01/13/24 23:48 Dose: Not Given Documented By: LANA Non-Admin Reason: Med Not Available Omeprazole (Omeprazole 20 Mg Capsule.) 20 mg PO DAILY@0630 [facility] Last Admin: 01/14/24 05:35 Dose: 20 mg Documented By: LANA Oxycodone HCl (Oxycodone Hcl Immed Release 5 Mg Tablet) 20 mg PO Q4H PRN PRN Reason: Pain, Severe (Pain Scale 7-10) Last Admin: 01/14/24 05:44 Dose: 20 mg Documented By: LANA Pharmacy Consult (Consult Rx Vancomycin Dosing) 1 each MISCELLANE DAILY PRN PRN Reason: Consult order Polyethylene Glycol (Polyethylene Glycol 3350 17 Gm Powd.Pack) 17 gm PO DAILY PRN PRN Reason: Constipation Sodium Chloride (0.9 % Sodium Chloride Flush 3 Ml Syringe) 3 ml IVFLUSH QSHIFT [facility] Last Admin: 01/14/24 07:45 Dose: Not Given Documented By: GERMANIA Non-Admin Reason: IV Running Trazodone HCl (Trazodone Hcl 50 Mg Tablet) 150 mg PO BEDTIME [facility] Last Admin: 01/13/24 22:29 Dose: 150 mg Documented By: LANA Labs 01/13/24 15:57 01/14/24 04:37 Labs: Laboratory Results - last 24 hr 01/13/24 01/13/24 01/14/24 15:57 18:51 04:37 MCV 82.9 MCH 23.4 L MCHC 28.2 L RDW 17.6 H Plt Count 260 D MPV 10.2 Immature Gran % (Auto) 0.2 Neut % (Auto) 80.9 H Lymph % (Auto) 11.3 L Sierra % (Auto) 5.2 Eos % (Auto) 2.2 Baso % (Auto) 0.2 Lymph # (Auto) 0.6 L Sierra # (Auto) 0.3 Eos # (Auto) 0.1 Baso # (Auto) 0.0 Abs Immat Gran (auto) 0.01 Absolute Neuts (auto) 4.4 Absolute Nucleated RBC 0.000 Nucleated RBC % (auto) 0.0 Anion Gap 12 Estim Creat Clear Calc 56.4 58.1 Estimated GFR 50 52 Random Glucose 127 H Lactic Acid 3.4 H* Lactic Acid F/U @ 2Hr 1.4 Calcium 8.9 Total Bilirubin 0.2 AST 9 ALT < 5 Alkaline Phosphatase 97 Total Protein 7.4 Albumin 3.5 Assessment and Plan (1) Cellulitis of arm, right: Status: Acute (2) Lymphedema of right arm: Status: Acute (3) Elevated lactic acid level: Status: Acute Plan 63-year-old female who has a history of breast cancer with metastatic disease (diagnosed in 2007 and treated at [facility] with surgical resection, chemotherapy and radiation) with 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 Lactic acidosis 3.4, improved to 1.4 with IV fluids. No septic shock -venous duplex negative for DVT, arterial doppler negative for significant PAF -IV vancomycin Zosyn (initiated 01/12) -follow CBC, cultures # Lymphedema RUE/chronic burn/Wound right axilla s/p radiation therapy for metastatic breast cancer s/p bilateral mastectomy -apply Silvadene to wound daily and cover with dry dressing, follows with [facility]NA/wound clinic at [facility] [place] -wound RN consult #CKD stage 3 -renal function baseline # chronic Normocytic anemia- r/t chronic disease -h/h above transfusion threshold -follow CBC # hypertension not on blood pressure medications, BP elevated will continue to monitor # chronic pain disorder -continue MS Contin, oxycodone p.r.n. # hypothyroidism -continue Synthroid # GERD -PPI # COPD -no acute exacerbation -continue maintenance inhalers, albuterol p.r.n. #Laryngeal cacinoma -voicebox DVT prophylaxis-Lovenox Full code Patient requires continued inpatient stay for management of severe sepsis secondary to extensive cellulitis of the right upper extremity encompassing nearly 100% of the extremity requiring IV antibiotics and close monitoring of hemodynamics to monitor for and prevent decompensation Quality Stroke Does the patient have a stroke diagnosis?: No VTE Prior VTE?: No VTE Risk Level:: Medical - moderate - high VTE Device Contraindication: Treatment Not Indicated VTE Drug Contraindication: N/A - Med Ordered
[2024-01-14 17:52] LABS: Vancomycin Random 20.5 mcg/mL (15-20)
[2024-01-14] MEDS: vancomycin HCL 500 MG in 0.9 % Sodium Chloride 100 ML 110 MG IV (20:17)
[2024-01-14] MEDS: Enoxaparin Sodium 40 MG/0.4 ML SYRINGE SUBCUT (20:17)
[2024-01-14] MEDS: DULoxetine HCl 30 MG CAPSULE.DR PO (20:18)
[2024-01-14] MEDS: traZODone HCL 50 MG TABLET 150 MG PO (20:18)
[2024-01-14] MEDS: 0.9 % Sodium Chloride Flush 3 ML SYRINGE IVFLUSH (20:27)
[2024-01-15] VITALS (7 sets, daily range): BP systolic 131–146; BP diastolic 71–85; PULSE 76–88; RESP 16–18; TEMP 36.1–36.6; O2SAT 90–99
[2024-01-15] MEDS: oxyCODONE HCl Immed Release 5 MG TABLET 20 MG PO ×3 (03:28→15:18)
[2024-01-15] MEDS: Piperacillin Sodium/Tazobactam 3.375 GM in 0.9 % Sodium Chloride 50 ML IV ×4 (04:41→23:00)
[2024-01-15] MEDS: Omeprazole 20 MG CAPSULE.DR PO (05:45)
[2024-01-15] MEDS: Levothyroxine Sodium 100 MCG TABLET PO (05:45)
--- NOTE | 2024-01-15 07:16 | PC.NURSE ---
Verified with pharmacy ,Vancomycin ok to administer
[2024-01-15] MEDS: clonazePAM 0.5 MG TABLET PO ×3 (07:34→20:04)
[2024-01-15] MEDS: DULoxetine HCl 60 MG CAPSULE.DR PO (07:34)
[2024-01-15] MEDS: Morphine Sulfate ER 30 MG TABLET.ER 90 MG PO ×2 (07:34→20:04)
[2024-01-15] MEDS: vancomycin HCL 500 MG in 0.9 % Sodium Chloride 100 ML 110 MG IV ×2 (07:34→20:46)
[2024-01-15] MEDS: 0.9 % Sodium Chloride Flush 3 ML SYRINGE IVFLUSH ×3 (07:36→20:05)
[2024-01-15] MEDS: Albuterol Sulfate (0.083%) 2.5 MG/3 ML VIAL.NEB INHALE ×3 (07:44→18:44)
[2024-01-15] MEDS: Budesonide 0.5 MG/2 ML AMPUL.NEB INHALE ×2 (07:44→18:43)
[2024-01-15 08:46] LABS: Creatinine Clr Calc Pharmacy 60.9; Estimated Glomerular Filt Rate 54
--- NOTE | 2024-01-15 10:11 | PC.NURSE ---
Bilateral eyes swelling ,left more than right ,no other symptoms,Dr. Damon made aware ,will monitor
--- NOTE | 2024-01-15 10:17 | MHC.CM.PN ---
EMR REVIEWED AND PER MD ROUNDS, PT IS NOT MEDICALLY CLEARED FOR DC (RUE CELLULITIS) CM WILL CONTINUE TO FOLLOW FOR ANY CHANGE TO DC PLAN/NEEDS.
[2024-01-15] MEDS: Throat Lozenge, Medicated LOZENGE 1 LOZENGE MUCOUS MEM (10:18)
[2024-01-15] MEDS: diphenhydrAMINE HCL 25 MG CAPSULE PO (11:09)
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
--- NOTE | 2024-01-15 15:17 | PC.NURSE ---
Patient reported yellowish drainage from right ear ,Dr. Damon made aware
[2024-01-15] MEDS: traZODone HCL 50 MG TABLET 150 MG PO (20:03)
[2024-01-15] MEDS: DULoxetine HCl 30 MG CAPSULE.DR PO (20:04)
[2024-01-15] MEDS: Enoxaparin Sodium 40 MG/0.4 ML SYRINGE SUBCUT (20:05)
[2024-01-16] VITALS (9 sets, daily range): BP systolic 98–144; BP diastolic 55–77; PULSE 70–85; RESP 14–18; TEMP 36.1–36.8; O2SAT 92–98
[2024-01-16] MEDS: Piperacillin Sodium/Tazobactam 3.375 GM in 0.9 % Sodium Chloride 50 ML IV ×4 (05:15→22:53)
[2024-01-16] MEDS: Omeprazole 20 MG CAPSULE.DR PO (05:15)
[2024-01-16] MEDS: Levothyroxine Sodium 100 MCG TABLET PO (05:15)
[2024-01-16] MEDS: Albuterol Sulfate (0.083%) 2.5 MG/3 ML VIAL.NEB INHALE ×3 (07:48→19:37)
[2024-01-16] MEDS: Budesonide 0.5 MG/2 ML AMPUL.NEB INHALE ×2 (07:48→19:37)
[2024-01-16 08:01] LABS: Creatinine Clr Calc Pharmacy 63.3; Estimated Glomerular Filt Rate 57
[2024-01-16] MEDS: clonazePAM 0.5 MG TABLET PO ×3 (09:21→21:29)
[2024-01-16] MEDS: Morphine Sulfate ER 30 MG TABLET.ER 90 MG PO ×2 (09:21→21:30)
[2024-01-16] MEDS: DULoxetine HCl 60 MG CAPSULE.DR PO (09:22)
[2024-01-16] MEDS: 0.9 % Sodium Chloride Flush 3 ML SYRINGE IVFLUSH ×3 (09:22→22:56)
[2024-01-16] MEDS: oxyCODONE HCl Immed Release 5 MG TABLET 20 MG PO ×2 (11:02→17:16)
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
[2024-01-16] MEDS: DULoxetine HCl 30 MG CAPSULE.DR PO (21:29)
[2024-01-16] MEDS: traZODone HCL 50 MG TABLET 150 MG PO (21:31)
[2024-01-16] MEDS: Enoxaparin Sodium 40 MG/0.4 ML SYRINGE SUBCUT (21:32)
[2024-01-17] MEDS: oxyCODONE HCl Immed Release 5 MG TABLET 20 MG PO ×3 (01:13→11:41)
[2024-01-17 03:27] VITALS: BP 110/59; PULSE 65; RESP 16; TEMP 36.1; O2SAT 96
[2024-01-17] MEDS: Piperacillin Sodium/Tazobactam 3.375 GM in 0.9 % Sodium Chloride 50 ML IV (05:03)
[2024-01-17] MEDS: Levothyroxine Sodium 100 MCG TABLET PO (05:38)
[2024-01-17] MEDS: Omeprazole 20 MG CAPSULE.DR PO (05:38)
[2024-01-17 07:29] VITALS: BP 126/64; PULSE 74; RESP 16; TEMP 36.1; O2SAT 97
[2024-01-17] MEDS: Albuterol Sulfate (0.083%) 2.5 MG/3 ML VIAL.NEB INHALE (07:53)
[2024-01-17] MEDS: Budesonide 0.5 MG/2 ML AMPUL.NEB INHALE (07:53)
[2024-01-17 07:54] VITALS: PULSE 74; RESP 16; O2SAT 95
[2024-01-17 07:59] LABS: Creatinine Clr Calc Pharmacy 55.9; Estimated Glomerular Filt Rate 49
[2024-01-17] MEDS: DULoxetine HCl 60 MG CAPSULE.DR PO (08:25)
[2024-01-17] MEDS: clonazePAM 0.5 MG TABLET PO (08:25)
[2024-01-17] MEDS: Morphine Sulfate ER 30 MG TABLET.ER 90 MG PO (08:25)
[2024-01-17] MEDS: 0.9 % Sodium Chloride Flush 3 ML SYRINGE IVFLUSH (08:26)
--- NOTE | 2024-01-17 09:50 | MHC.CM.PN ---
DP: PT HAS BEEN MEDICALLY CLEARED FOR DC HOME WITH [facility] FOR NURSING SERVICES. PT HAS OWN RIDE HOME.
--- NOTE | 2024-01-17 10:24 | P.F2F_ITS ---
Service Date Service Date: 01/17/24 Encounter Date of encounter: 01/17/24 Reasons for Services Signs and symptoms assessed: Right upper extremity cellulitis/lymphedema/right axillary wound Reason for half-way: wound care and medication management Homebound: Leaving the home is medically contraindicated at this time without the asist of a device and/or another person due th the listed conditions above and below. Reason homebound: weakness related to hospital stay Certification: Based on the above findings, I certify that this patient is confined to the home and needs intermittent half-way care, physical therapy and/or speech therapy, or continues to need occupational therapy. The patient is under my care, and I have initiated the establishment of the plan of care. The patient will be followed by a physician who will periodically review the plan of care. Time Spent With Patient Time: Total time managing care of this patient today ____ minutes.
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
[2024-01-17] MEDS: Doxycycline Monohydrate 100 MG CAPSULE PO (10:41)
== END 2024-01-17 12:48 | disposition home health service (06) | DRG 720 ==
LOC: HO.ED 16:58 → HO.EDOVER 20:04 → HO.S3 01-14 07:41
PROVIDERS: Admitting Provider Physician Assistant; Emergency Provider Emergency Medicine; PCP Internal Medicine; Visit Provider Hospitalist
DX: A41.9 Sepsis, unspecified organism (principal); C32.9 Malignant neoplasm of larynx, unspecified; D63.1 Anemia in chronic kidney disease; E03.9 Hypothyroidism, unspecified; L03.113 Cellulitis of right upper limb; G89.29 Other chronic pain; I89.0 Lymphedema, not elsewhere classified; T22.0 Burn of unspecified degree of shoulder and upper limb, except wrist and hand; Y84.2 Radiological procedure and radiotherapy as the cause of abnormal reaction of the patient, or of later complication, without mention of misadventure at the time of the procedure; R65.20 Severe sepsis without septic shock; N18.30 Chronic kidney disease, stage 3 unspecified; K21.9 Gastro-esophageal reflux disease without esophagitis; I12.9 Hypertensive chronic kidney disease with stage 1 through stage 4 chronic kidney disease, or unspecified chronic kidney disease; Z90.13 Acquired absence of bilateral breasts and nipples; Z85.3 Personal history of malignant neoplasm of breast; Z79.890 Hormone replacement therapy; Z79.899 Other long term (current) drug therapy
CPT/HCPCS: 36415; 71046; 80053; 80202; 82565; 83605; 85025; 87040; 93005; 93931; 93971; 94640; 99285; J1650; J2543; J3370

== ENCOUNTER → 2024-01-13 13:02 | Outpatient (BNV) | payer MEDICAID, SELFPAY | PROVIDERS: Admitting Provider Physician Assistant; Emergency Provider Emergency Medicine; PCP Internal Medicine; Visit Provider Internal Medicine Cardiovascular Disease | DX: R94.31 Abnormal electrocardiogram [ECG] [EKG] (principal) | CPT/HCPCS: 93010 ==

== ENCOUNTER → 2024-01-13 19:50 | Outpatient (BNV) | payer MEDICAID, SELFPAY | PROVIDERS: Admitting Provider Physician Assistant; Emergency Provider Emergency Medicine; PCP Internal Medicine; Visit Provider Physician Assistant | DX: L03.113 Cellulitis of right upper limb (principal); I89.0 Lymphedema, not elsewhere classified; R79.89 Other specified abnormal findings of blood chemistry | CPT/HCPCS: 99223; 99233; 99239; G0180 ==

== ENCOUNTER 2024-04-08 13:36 | Emergency (ER) | payer MEDICAID, SELFPAY ==
--- NOTE | ~2024-04-08 | XR_ITS ---
EXAMINATION: XR CHEST CLINICAL INFORMATION: subjective fever, chronic chest wound COMPARISON: Chest x-ray January 13, 2024 TECHNIQUE: 2 views of the chest were obtained. FINDINGS: Central catheter tip unchanged position the cavoatrial junction. Chronic scarring and volume loss of the left upper lobe. No acute airspace disease. No pleural effusion or pneumothorax. Heart size is normal. No pulmonary vascular congestion. Surgical clips right axilla. XR/XR chest 2V IMPRESSION: 1. No acute abnormality of chest. 2. Chronic scarring and volume loss of the left upper lobe. Electronically signed by: Tucker Horton MD 04/08/2024 03:21 PM EDT
[2024-04-08 13:42] VITALS: BP 144/74; PULSE 114; RESP 18; TEMP 36.5; O2SAT 97; BMI 33.6
--- NOTE | 2024-04-08 13:42 | ED.GENADULT ---
HPI - General Adult General Chief complaint: Wound/Laceration Stated complaint: fever-cold chills-sepsis concerns Time Seen by Provider: 04/08/24 15:29 Related Data Home Medications ?Medication ?Instructions ?Recorded ?Confirmed albuterol sulfate 2.5 mg/3 mL 2.5 mg inhalation TID 09/20/23 01/13/24 (0.083 %) solution for nebulization arformoterol 15 mcg/2 mL solution 2 ml inhalation BID 09/20/23 01/13/24 for nebulization budesonide 0.5 mg/2 mL suspension 0.5 mg inhalation BID 09/20/23 01/13/24 for nebulization clonazepam 0.5 mg tablet 0.5 mg PO TID 09/20/23 01/13/24 duloxetine 30 mg capsule,delayed 30 mg PO BEDTIME 09/20/23 01/13/24 release duloxetine 60 mg capsule,delayed 60 mg PO DAILY 09/20/23 01/13/24 release levothyroxine 100 mcg tablet 100 mcg PO DAILY@0600 09/20/23 01/13/24 morphine 100 mg tablet,extended 100 mg PO BID 09/20/23 01/13/24 release omeprazole 20 mg capsule,delayed 20 mg PO DAILY@0630 09/20/23 01/13/24 release oxycodone 10 mg tablet 20 mg PO Q4H PRN pain 09/20/23 01/13/24 trazodone 150 mg tablet 150 mg PO BEDTIME 09/20/23 01/13/24 diphenhydramine 25 1 tab DAILY PRN Sleep 01/13/24 01/13/24 mg-acetaminophen 500 mg tablet (Tylenol PM Extra Strength) docusate sodium 100 mg capsule 100 mg PO DAILY PRN Constipation 01/13/24 01/13/24 (Colace) ibuprofen 600 mg tablet 600 mg PO Q6H PRN Pain 01/13/24 01/13/24 polyethylene glycol 3350 17 17 g PO DAILY PRN Constipation 01/13/24 01/13/24 gram/dose oral powder (Miralax) Previous Rx's ?Medication ?Instructions ?Recorded doxycycline monohydrate 100 mg 100 mg PO BID #10 caps 01/17/24 capsule amoxicillin 500 mg capsule 500 mg PO TID 7 days #21 caps 04/08/24 doxycycline hyclate 100 mg capsule 100 mg PO BID 7 days #14 caps 04/08/24 Allergies Allergy/AdvReac Type Severity Reaction Status Date / Time No Known Allergies Allergy Verified 04/08/24 13:47 [facility] Past Medical History Medical History Mixed conductive and sensorineural hearing loss of right ear Former smoker Mood disorder Dysphagia Hypertension Hypothyroidism GERD (gastroesophageal reflux disease) Laryngeal carcinoma Chronic suppurative otitis media Metastatic malignant neoplasm to breast COPD (chronic obstructive pulmonary disease) Surgical History History of tympanoplasty of right ear S/P bilateral mastectomy Social History Social History Household Members: None Household Members Other:: family in apartment upstairs Housing: Apartment Do you presently have visiting nurse or other home services: Yes Patient Tobacco Use Status: Former Tobacco user Tobacco use type: Cigarette and Cigar Years Smoked: 40 Smoked in Last 30 Days: No e-Cigarette/Vaping Use: Never Used Second Hand Smoke Exposure: No Use of substances other than those prescribed or required for medical reasons: Yes Substance Use Type: Marijuana Substance Use Frequency Other:: occasional gummies Last Used Substance: Weeks (ago) Any prior treatment program specific to substance use: No Advance Directives: No Advance Directives Information Provided: Yes Do you have a plan to hurt others: No Plan Patient : No service: No Physical Exam ED Vital Signs: BMI result Body Mass Index 33.6 Course Course Course Narrative: This is a rapid medical exam performed by Martir Ashraf NP: Additional HPI, ROS, PE not included below will be deferred to primary provider. Patient is a 63-year-old female with history of HTN, lymphedema, hypothyroidism, laryngeal carcinoma, breast CA, former smoker, COPD presenting to the ED with complaint of chills/sweats, drowsiness, has chronic wound to right chest from radiation x 5 years, advised by wound care nurse to come in for evaluation. Increased drainage from wound. Plan: labs including cultures Medications Administered Discontinued Medications Generic Name Dose Route Start Last Admin Trade Name Freq PRN Reason Stop Dose Admin Amoxicillin 500 mg 04/08/24 16:26 04/08/24 16:51 Amoxicillin 500 Mg Capsule PO 04/08/24 16:27 500 mg ONCE ONE Administration Doxycycline Monohydrate 100 mg 04/08/24 16:26 04/08/24 16:51 Doxycycline Monohydrate 100 Mg Capsule PO 04/08/24 16:27 100 mg ONCE ONE Administration Lactated Ringer's 500 mls @ 999 mls/hr 04/08/24 16:30 04/08/24 18:19 Lr IV 04/08/24 17:00 Infused .Q31M SUNNI Infusion Medical Decision Making Lab Data 04/08/24 14:29 04/08/24 14:29 Labs: Lab Results 04/08/24 04/08/24 Range/Units 14:29 14:58 WBC 3.4 L (4.8-10.8) X10*3/uL RBC 3.92 L (4.20-5.50) X10*6/uL Hgb 8.9 L (12.0-16.0) g/dl Hct 31.0 L (37.0-47.0) % MCV 79.1 L (80.0-98.0) fL MCH 22.7 L (27.0-33.0) pg MCHC 28.7 L (31.0-35.0) g/dl RDW 17.9 H (11.0-16.0) % Plt Count 228 (160-400) X10*3/uL MPV 10.0 (9.4-12.3) fL Immature Gran % (Auto) 0.3 (0.0-0.4) % Neut % (Auto) 77.0 H (45-73) % Lymph % (Auto) 14.0 L (20-40) % [place] % (Auto) 6.1 (2-11) % Eos % (Auto) 2.3 (0-4) % Baso % (Auto) 0.3 (0-2) % Lymph # (Auto) 0.5 L (1.2-4.9) X10*3/uL [place] # (Auto) 0.2 (0.1-1.2) X10*3/uL Eos # (Auto) 0.1 (0.0-0.4) X10*3/uL Baso # (Auto) 0.0 (0.0-0.2) X10*3/uL Abs Immat Gran (auto) 0.01 (0.00-0.03) X10*3/uL Absolute Neuts (auto) 2.6 (2.0-8.3) x10*3/uL Absolute Nucleated RBC 0.000 (0.0-0.012) X10*3/uL Nucleated RBC % (auto) 0.0 (0.0-0.2) /100WBC ESR 78 H (0-20) MM/HR Sodium 138 (135-145) mmol/L Potassium 3.5 (3.3-5.1) mmol/L Chloride 106 (96-108) mmol/L Carbon Dioxide 22 (22-29) mmol/L Anion Gap 14 (12-20) BUN 9 (9-16) mg/dL Creatinine 1.10 (0.5-1.4) mg/dL Estim Creat Clear Calc 51.7 Estimated GFR 50 Random Glucose 136 H (60-115) mg/dL Lactic Acid 1.5 (0.5-2.0) mmol/L Calcium 9.0 (8.4-10.2) mg/dL Total Bilirubin 0.2 (0.0-1.0) mg/dL AST 10 (5-31) U/L ALT 5 (0-31) U/L Alkaline Phosphatase 95 (39-117) U/L C-Reactive Protein 11.27 H (< or = 0.50) mg/dL Total Protein 7.8 (6.5-8.0) g/dL Albumin 3.9 (3.5-5.0) g/dL Urine Color Dark Yellow Urine Appearance Clear Urine pH 5.5 (5.0-9.0) Ur Specific [place] 1.020 (1.005-1.025) Urine Protein 100 (2+) H (Neg-Trace) mg/dL Urine Glucose (UA) Negative (Negative) mg/dL Urine Ketones Negative (Negative) mg/dL Urine Blood Moderate (2+) H (Negative) Urine Nitrite Negative (Negative) Ur Leukocyte Esterase Small (1+) H (Negative) Urine RBC 6-10 H (0-2) /HPF Urine WBC 0-5 (0-5) /HPF Ur Squamous Epith Cells 6-10 (0-2) /HPF Urine Bacteria None Seen (None Seen) Hyaline Casts 6-10 (0-2) /LPF Influenza Type A (PCR) NEGATIVE (Negative) Influenza Type B (PCR) NEGATIVE (Negative) RSV RNA Qual (PCR) NEGATIVE (Negative) SARS-CoV-2 RNA (RT-PCR) NEGATIVE (Negative) Discharge Plan Discharge Clinical Impression: Cellulitis Patient Disposition: Home, Self-Care Instructions: Cellulitis (ED) Additional Instructions: You were seen and evaluated in the emergency room. Your vital signs were normal and he did not have fever. ? Your blood work was reassuring. Your chest x-ray showed no acute abnormality. You are found to have a skin infection started on antibiotics. You are given a prescription for antibiotics. Please take as directed and until completed. You should take 1 more dose of each antibiotic tonight before bed. Please follow-up with your primary care doctor in the next 5-7 days. ? Please return to the emergency room if you develop any worsening symptoms including, but not limited to fever, chest pain or difficulty breathing. ? Prescriptions: New amoxicillin 500 mg capsule 500 mg PO TID 7 Days Qty: 21 0RF doxycycline hyclate 100 mg capsule 100 mg PO BID 7 Days Qty: 14 0RF No Action albuterol sulfate 2.5 mg /3 mL (0.083 %) solution for nebulization 2.5 mg inhalation TID clonazepam 0.5 mg tablet 0.5 mg PO TID morphine 100 mg tablet extended release 100 mg PO BID duloxetine 30 mg capsule,delayed release(DR/EC) 30 mg PO BEDTIME arformoterol 15 mcg/2 mL solution for nebulization 2 ml inhalation BID oxycodone 10 mg tablet 20 mg PO Q4H PRN (Reason: pain) levothyroxine 100 mcg tablet 100 mcg PO DAILY@0600 trazodone 150 mg tablet 150 mg PO BEDTIME omeprazole 20 mg capsule,delayed release(DR/EC) 20 mg PO DAILY@0630 budesonide 0.5 mg/2 mL suspension for nebulization 0.5 mg inhalation BID duloxetine 60 mg capsule,delayed release(DR/EC) 60 mg PO DAILY docusate sodium [Colace] 100 mg Capsule 100 mg PO DAILY PRN (Reason: Constipation) ibuprofen 600 mg Tablet 600 mg PO Q6H PRN (Reason: Pain) polyethylene glycol 3350 [Miralax] 17 gram/dose Powder 17 g PO DAILY PRN (Reason: Constipation) diphenhydramine-acetaminophen [Tylenol PM Extra Strength] 25-500 mg Tablet 1 tab DAILY PRN (Reason: Sleep) doxycycline monohydrate 100 mg capsule 100 mg PO BID Qty: 10 0RF Interventions: ED Discharge Assessment Last Done: 04/08/24 19:10 Discharge Date/Time: 04/08/24 19:11 Print Language: Burkinan
[2024-04-08 14:38] LABS: MANUAL DIFF FLAG NO
[2024-04-08 14:41] LABS: Basophils Percent Auto 0.3 % (0-2); Eosinophils Absolute Auto 0.1 X10*3/uL (0.0-0.4); Eosinophils Percent Auto 2.3 % (0-4); Hemoglobin 8.9 g/dl (12.0-16.0); Imm Gran Abs Auto 0.01 X10*3/uL (0.00-0.03); Imm Gran Pct Auto 0.3 % (0.0-0.4); Lymphocytes Absolute Auto 0.5 X10*3/uL (1.2-4.9); Mean Corpuscular HGB Conc 28.7 g/dl (31.0-35.0); Mean Corpuscular Hemoglobin 22.7 pg (27.0-33.0); Mean Corpuscular Volume 79.1 fL (80.0-98.0); Monocytes Absolute Auto 0.2 X10*3/uL (0.1-1.2); Monocytes Percent Auto 6.1 % (2-11); Neutrophils Absolute Auto 2.6 x10*3/uL (2.0-8.3); Platelet Count 228 X10*3/uL (160-400); Red Blood Count 3.92 X10*6/uL (4.20-5.50); Red Cell Distribution Width 17.9 % (11.0-16.0); White Blood Count 3.4 X10*3/uL (4.8-10.8)
[2024-04-08 14:52] LABS: Lactic Acid 1.5 mmol/L (0.5-2.0)
[2024-04-08 14:56] LABS: Alanine Aminotransferase 5 U/L (0-31); Albumin Level 3.9 g/dL (3.5-5.0); Alkaline Phosphatase 95 U/L (39-117); Anion Gap 14 (12-20); Aspartate Amino Transferase 10 U/L (5-31); Bilirubin Total 0.2 mg/dL (0.0-1.0); Blood Urea Nitrogen 9 mg/dL (9-16); C Reactive Protein 11.27 mg/dL (< or = 0.50); Carbon Dioxide 22 mmol/L (22-29); Chloride 106 mmol/L (96-108); Creatinine Clr Calc Pharmacy 51.7; Estimated Glomerular Filt Rate 50; Glucose Random 136 mg/dL (60-115); Potassium 3.5 mmol/L (3.3-5.1); Sodium 138 mmol/L (135-145); Total Protein 7.8 g/dL (6.5-8.0)
[2024-04-08 15:04] VITALS: BP 144/74; PULSE 114; RESP 18; TEMP 36.5; O2SAT 97
--- NOTE | 2024-04-08 15:04 | PC.NURSE ---
patient arrives through external triage with cc of possible wound infection, states she has been admitted in the past with septic infections, and has a chronic wound on her right chest after a mastectomy 5 years ago, patient sees wound care and the wound has been healing well, but today they noticed a foul odor coming from the wound when unwrapping it, the wound is pink and appears to be healing well, some carlson drainage noted to bandage, this nurse did not appreciate a foul smelling odor. patient states she had a fever at home of 102 a few days ago and maybe had a low grade fever today, denies pain to the wound, chest pain, shortness of breath, sick contacts. respirations even and unlabored, patient states she has a port but occasionally it doesn't work, states we can use it if we need to, 18g PIV placed in left forearm. blood work drawn and sent to lab, patient ambulated to bathroom with steady gait provided urine sample. labs sent. awaiting MD ayala
[2024-04-08 15:22] LABS: Appearance Urine Clear; Color Urine Dark Yellow; Glucose Urine UA Negative (Negative); Leukocyte Esterase Urine Small (1+) (Negative); Nitrite Urine Negative (Negative); PH 5.5 (5.0-9.0); UMIC TRIGGER UACC YES; Urine Blood Moderate (2+) (Negative); Urine Ketones Negative (Negative); Urine Protein 100 (2+) mg/dL (Neg-Trace)
[2024-04-08 15:32] LABS: Bacteria Urine None Seen (None Seen); UACC Culture Trigger YES; WBC Urine 0-5 /HPF (0-5)
[2024-04-08 15:33] LABS: Erythrocyte Sedimentation Rate 78 MM/HR (0-20)
--- NOTE | 2024-04-08 15:33 | MHC.CM.ED ---
Received notification from [facility] that patient is active with their agency. Return referral made to [facility] via [facility] so they can follow for d/c needs.
[2024-04-08 16:03] LABS: Influenza A PCR NEGATIVE (Negative); Influenza B PCR NEGATIVE (Negative); Resp Syncy Virus RNA Qual PCR NEGATIVE (Negative); SARS COV2 PCR INHOUSE NEGATIVE (Negative)
--- NOTE | 2024-04-08 16:25 | ED_ITS ---
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 She states that she continues going to the wound clinic and reports that her wound is the slowly been healing very well. She states that a nurse came to check on her today and noted that she had some pus when exchanging the dressing. She states that she was recommended to come to the emergency room for evaluation for this reason. She states no fevers. She states no chest pain. She states no dyspnea. She reports having chills at times. She reports otherwise feeling well. She states no abdominal pain, nausea or vomiting. She states no changes in bowel habits or urinary symptoms. She states no trauma. Related Data Home Medications ?Medication ?Instructions ?Recorded ?Confirmed albuterol sulfate 2.5 mg/3 mL 2.5 mg inhalation TID 09/20/23 01/13/24 (0.083 %) solution for nebulization arformoterol 15 mcg/2 mL solution 2 ml inhalation BID 09/20/23 01/13/24 for nebulization budesonide 0.5 mg/2 mL suspension 0.5 mg inhalation BID 09/20/23 01/13/24 for nebulization clonazepam 0.5 mg tablet 0.5 mg PO TID 09/20/23 01/13/24 duloxetine 30 mg capsule,delayed 30 mg PO BEDTIME 09/20/23 01/13/24 release duloxetine 60 mg capsule,delayed 60 mg PO DAILY 09/20/23 01/13/24 release levothyroxine 100 mcg tablet 100 mcg PO DAILY@0600 09/20/23 01/13/24 morphine 100 mg tablet,extended 100 mg PO BID 09/20/23 01/13/24 release omeprazole 20 mg capsule,delayed 20 mg PO DAILY@0630 09/20/23 01/13/24 release oxycodone 10 mg tablet 20 mg PO Q4H PRN pain 09/20/23 01/13/24 trazodone 150 mg tablet 150 mg PO BEDTIME 09/20/23 01/13/24 diphenhydramine 25 1 tab DAILY PRN Sleep 01/13/24 01/13/24 mg-acetaminophen 500 mg tablet (Tylenol PM Extra Strength) docusate sodium 100 mg capsule 100 mg PO DAILY PRN Constipation 01/13/24 01/13/24 (Colace) ibuprofen 600 mg tablet 600 mg PO Q6H PRN Pain 01/13/24 01/13/24 polyethylene glycol 3350 17 17 g PO DAILY PRN Constipation 01/13/24 01/13/24 gram/dose oral powder (Miralax) Previous Rx's ?Medication ?Instructions ?Recorded doxycycline monohydrate 100 mg 100 mg PO BID #10 caps 01/17/24 capsule amoxicillin 500 mg capsule 500 mg PO TID 7 days #21 caps 04/08/24 doxycycline hyclate 100 mg capsule 100 mg PO BID 7 days #14 caps 04/08/24 Allergies Allergy/AdvReac Type Severity Reaction Status Date / Time No Known Allergies Allergy Verified 04/08/24 13:47 Review of Systems 2 Review of Systems: ROS as per HPI [facility] Past Medical History Medical History Mixed conductive and sensorineural hearing loss of right ear Former smoker Mood disorder Dysphagia Hypertension Hypothyroidism GERD (gastroesophageal reflux disease) Laryngeal carcinoma Chronic suppurative otitis media Metastatic malignant neoplasm to breast COPD (chronic obstructive pulmonary disease) Surgical History History of tympanoplasty of right ear S/P bilateral mastectomy Social History Social History Household Members: None Household Members Other:: family in apartment upstairs Housing: Apartment Do you presently have visiting nurse or other home services: Yes Patient Tobacco Use Status: Former Tobacco user Tobacco use type: Cigarette and Cigar Years Smoked: 40 Smoked in Last 30 Days: No e-Cigarette/Vaping Use: Never Used Second Hand Smoke Exposure: No Use of substances other than those prescribed or required for medical reasons: Yes Substance Use Type: Marijuana Substance Use Frequency Other:: occasional gummies Last Used Substance: Weeks (ago) Any prior treatment program specific to substance use: No Advance Directives: No Advance Directives Information Provided: Yes Do you have a plan to hurt others: No Plan Patient : No service: No Physical Exam ED Vital Signs: Vital Signs - 24 hr 04/08/24 13:42 04/08/24 15:04 04/08/24 18:19 Temperature 97.7 F 97.7 F 98.2 F Pulse Rate 114 H 114 H 84 Respiratory Rate 18 18 16 Blood Pressure 144/74 H 144/74 H 141/73 H Pulse Oximetry 97 97 98 Oxygen Delivery Method Room Air Room Air Room Air BMI result Body Mass Index 33.6 Gen: NAD, AOx3 HEENT: NCAT, EOMI, normal conjunctiva CV: Tachycardic rate, regular rhythm, no murmurs appreciated Pulm: CTAB, no increased work of breathing GI: Soft, NTND, no rebound, guarding or rigidity Neuro: Grossly non focal Skin: Warm, dry, superficial wound to the right axilla/superomedial chest wall with mild erythema and purulence without focal fluctuance/induration and scar tissue circumferentially Medications Administered Discontinued Medications Generic Name Dose Route Start Last Admin Trade Name Freq PRN Reason Stop Dose Admin Amoxicillin 500 mg 04/08/24 16:26 04/08/24 16:51 Amoxicillin 500 Mg Capsule PO 04/08/24 16:27 500 mg ONCE ONE Administration Doxycycline Monohydrate 100 mg 04/08/24 16:26 04/08/24 16:51 Doxycycline Monohydrate 100 Mg Capsule PO 04/08/24 16:27 100 mg ONCE ONE Administration Lactated Ringer's 500 mls @ 999 mls/hr 04/08/24 16:30 04/08/24 18:19 Lr IV 04/08/24 17:00 Infused .Q31M SUNNI Infusion Medical Decision Making Medical Decision Making [facility] Narrative: Differential diagnosis includes, but is not limited to chronic wound, cellulitis. Patient is afebrile and hemodynamically stable on room air. This is not sepsis. Of note, she is mildly tachycardic for which she is provided IV fluids (tachycardia resolved prior to discharge). She has no respiratory symptoms or chest pain to suggest any acute cardiopulmonary process. This may be secondary to fluid status for it she is provided IV fluids and/or secondary to cellulitis. Exam is consistent with a cellulitis of the skin of the superomedial right chest wall abutting the axilla. Thus, we will treat it as such. Patient is provided doxycycline and amoxicillin. I reviewed and interpreted labs, which are notable for stable chronic anemia with hemoglobin 8.9 (previous 8.2), CRP 11.27 (in keeping with cellulitis), urinalysis is noncontributory given no symptoms to suspect urinary tract infection such as with dysuria or urinary frequency/urgency. Lactic acid within normal limits and 1.5. Patient has tested negative for COVID-19, influenza and RSV. I independently reviewed chest x-ray as below. On re-examination, patient is well-appearing and in no acute distress. ?Patient states symptoms have resolved. ?There is no indication for further emergent evaluation in this otherwise well-appearing patient as above. ?Patient is provided written and verbal instructions, educational materials, recommendations for outpatient follow-up, strict return precautions and teach back is performed. ?Patient states understanding and agreement with plan of care. ?Patient is discharged home in stable and improved condition. Admission/Observation Consideration of admission/observation: Escalation of care including admission/observation considered Lab Data MDM Lab Attestation statement: I reviewed the patient's lab results. 04/08/24 14:29 04/08/24 14:29 Labs: Lab Results 04/08/24 04/08/24 Range/Units 14:29 14:58 WBC 3.4 L (4.8-10.8) X10*3/uL RBC 3.92 L (4.20-5.50) X10*6/uL Hgb 8.9 L (12.0-16.0) g/dl Hct 31.0 L (37.0-47.0) % MCV 79.1 L (80.0-98.0) fL MCH 22.7 L (27.0-33.0) pg MCHC 28.7 L (31.0-35.0) g/dl RDW 17.9 H (11.0-16.0) % Plt Count 228 (160-400) X10*3/uL MPV 10.0 (9.4-12.3) fL Immature Gran % (Auto) 0.3 (0.0-0.4) % Neut % (Auto) 77.0 H (45-73) % Lymph % (Auto) 14.0 L (20-40) % [place] % (Auto) 6.1 (2-11) % Eos % (Auto) 2.3 (0-4) % Baso % (Auto) 0.3 (0-2) % Lymph # (Auto) 0.5 L (1.2-4.9) X10*3/uL [place] # (Auto) 0.2 (0.1-1.2) X10*3/uL Eos # (Auto) 0.1 (0.0-0.4) X10*3/uL Baso # (Auto) 0.0 (0.0-0.2) X10*3/uL Abs Immat Gran (auto) 0.01 (0.00-0.03) X10*3/uL Absolute Neuts (auto) 2.6 (2.0-8.3) x10*3/uL Absolute Nucleated RBC 0.000 (0.0-0.012) X10*3/uL Nucleated RBC % (auto) 0.0 (0.0-0.2) /100WBC ESR 78 H (0-20) MM/HR Sodium 138 (135-145) mmol/L Potassium 3.5 (3.3-5.1) mmol/L Chloride 106 (96-108) mmol/L Carbon Dioxide 22 (22-29) mmol/L Anion Gap 14 (12-20) BUN 9 (9-16) mg/dL Creatinine 1.10 (0.5-1.4) mg/dL Estim Creat Clear Calc 51.7 Estimated GFR 50 Random Glucose 136 H (60-115) mg/dL Lactic Acid 1.5 (0.5-2.0) mmol/L Calcium 9.0 (8.4-10.2) mg/dL Total Bilirubin 0.2 (0.0-1.0) mg/dL AST 10 (5-31) U/L ALT 5 (0-31) U/L Alkaline Phosphatase 95 (39-117) U/L C-Reactive Protein 11.27 H (< or = 0.50) mg/dL Total Protein 7.8 (6.5-8.0) g/dL Albumin 3.9 (3.5-5.0) g/dL Urine Color Dark Yellow Urine Appearance Clear Urine pH 5.5 (5.0-9.0) Ur Specific [place] 1.020 (1.005-1.025) Urine Protein 100 (2+) H (Neg-Trace) mg/dL Urine Glucose (UA) Negative (Negative) mg/dL Urine Ketones Negative (Negative) mg/dL Urine Blood Moderate (2+) H (Negative) Urine Nitrite Negative (Negative) Ur Leukocyte Esterase Small (1+) H (Negative) Urine RBC 6-10 H (0-2) /HPF Urine WBC 0-5 (0-5) /HPF Ur Squamous Epith Cells 6-10 (0-2) /HPF Urine Bacteria None Seen (None Seen) Hyaline Casts 6-10 (0-2) /LPF Influenza Type A (PCR) NEGATIVE (Negative) Influenza Type B (PCR) NEGATIVE (Negative) RSV RNA Qual (PCR) NEGATIVE (Negative) SARS-CoV-2 RNA (RT-PCR) NEGATIVE (Negative) Independent Interpretation I performed an independent interpretation of an: Plain X-Ray Interpretation: I independently reviewed and interpreted the patient's chest x-ray, which demonstrates no a pleural effusion, focal consolidation or pneumothorax Radiology Impression Discussion of test interpretation with radiology: I have reviewed the radiologist's reading. Radiologist Impression: XR/XR chest 2V IMPRESSION: 1. No acute abnormality of chest. 2. Chronic scarring and volume loss of the left upper lobe. Electronically signed by: Tucker Horton MD 04/08/2024 03:21 PM EDT Dictated By: Tucker Horton MD Signed By: <Electronically signed by Tucker Horton MD in OV> 04/08/24 1521 Discharge Plan Discharge Clinical Impression: Cellulitis Patient Disposition: Home, Self-Care Instructions: Cellulitis (ED) Additional Instructions: You were seen and evaluated in the emergency room. Your vital signs were normal and he did not have fever. ? Your blood work was reassuring. Your chest x-ray showed no acute abnormality. You are found to have a skin infection started on antibiotics. You are given a prescription for antibiotics. Please take as directed and until completed. You should take 1 more dose of each antibiotic tonight before bed. Please follow-up with your primary care doctor in the next 5-7 days. ? Please return to the emergency room if you develop any worsening symptoms including, but not limited to fever, chest pain or difficulty breathing. ? Prescriptions: New amoxicillin 500 mg capsule 500 mg PO TID 7 Days Qty: 21 0RF doxycycline hyclate 100 mg capsule 100 mg PO BID 7 Days Qty: 14 0RF No Action albuterol sulfate 2.5 mg /3 mL (0.083 %) solution for nebulization 2.5 mg inhalation TID clonazepam 0.5 mg tablet 0.5 mg PO TID morphine 100 mg tablet extended release 100 mg PO BID duloxetine 30 mg capsule,delayed release(DR/EC) 30 mg PO BEDTIME arformoterol 15 mcg/2 mL solution for nebulization 2 ml inhalation BID oxycodone 10 mg tablet 20 mg PO Q4H PRN (Reason: pain) levothyroxine 100 mcg tablet 100 mcg PO DAILY@0600 trazodone 150 mg tablet 150 mg PO BEDTIME omeprazole 20 mg capsule,delayed release(DR/EC) 20 mg PO DAILY@0630 budesonide 0.5 mg/2 mL suspension for nebulization 0.5 mg inhalation BID duloxetine 60 mg capsule,delayed release(DR/EC) 60 mg PO DAILY docusate sodium [Colace] 100 mg Capsule 100 mg PO DAILY PRN (Reason: Constipation) ibuprofen 600 mg Tablet 600 mg PO Q6H PRN (Reason: Pain) polyethylene glycol 3350 [Miralax] 17 gram/dose Powder 17 g PO DAILY PRN (Reason: Constipation) diphenhydramine-acetaminophen [Tylenol PM Extra Strength] 25-500 mg Tablet 1 tab DAILY PRN (Reason: Sleep) doxycycline monohydrate 100 mg capsule 100 mg PO BID Qty: 10 0RF Print Language: Australian
[2024-04-08] MEDS: Doxycycline Monohydrate 100 MG CAPSULE PO (16:51)
[2024-04-08] MEDS: Amoxicillin 500 MG CAPSULE PO (16:51)
[2024-04-08] MEDS: Lactated Ringers 500 ML 999 ML IV (16:52)
[2024-04-08 18:19] VITALS: BP 141/73; PULSE 84; RESP 16; TEMP 36.8; O2SAT 98
[2024-04-08 19:10] VITALS: BP 141/73; PULSE 84; RESP 19; TEMP 36.8; O2SAT 98
== END 2024-04-08 19:11 | disposition home or self-care (01) ==
PROVIDERS: Registered Nurse Emergency; Emergency Provider Emergency Medicine; PCP Internal Medicine
DX: L03.111 Cellulitis of right axilla (principal); Z03.818 Encounter for observation for suspected exposure to other biological agents ruled out; I10 Essential (primary) hypertension; J44.9 Chronic obstructive pulmonary disease, unspecified; Z87.891 Personal history of nicotine dependence
CPT/HCPCS: 0241U; 71046; 80053; 81001; 83605; 85025; 85652; 86140; 87040; 87086; 96360; 99284; J7120

== ENCOUNTER 2024-06-08 13:03 | Outpatient (RCR) | payer MEDICAID, SELFPAY ==
--- NOTE | 2024-04-27 15:41 | MHC.OT.OLE ---
[address] [phone] F: [phone] Occupational Therapy Lymphedema Evaluation Patient Name: Harper Goode Diagnosis: (R) breast cancer, (B)mastectomy Date of Onset: 11/05/08 Attending Provider: May Graf Prescribed Treatment: Follow Up Appointment: History of Current Condition: Patient is a 63 y/o female with significant PMHx of but not limited too inflammatory breast cancer (R) (2008), s/p (B)mastectomy, Laryngeal carcinoma (voice box), COPD, CKD III, who was referred to skilled OT/ lymphedema therapy for edema on pain of the (R)UE. She reported she had previous lymphedema treatment years ago. Patient stated she lives alone with her 3 cats in a 2 family home and has 2 [employer] workers for IADL tasks as she reports and [facility] services foe wound care. She states her PLOF as (I) for ADLs. She uses a SC for functional ambulation. She would like her arm to be normal. Significant Medical History: History of tympanoplasty of right ear S/P bilateral mastectomy Mixed conductive and sensorineural hearing loss of right ear Former smoker Mood disorder Dysphagia Hypertension Hypothyroidism GERD (gastroesophageal reflux disease) Laryngeal carcinoma Chronic suppurative otitis media Metastatic malignant neoplasm to breast COPD Precautions/Contraindications: Patient Goals: Hand Dominance: Right Observations: Outcome Measures: Prior Level of Function and Occupation Living Situation: lives alone Family and/or Social Report: Friends Self-Half-Way Support: (I)ADLs/ min (A) IADLs on disability Employment Status: Lives alone in 2 family home has supportive friends Leisure Activities/Hobbies: Current Level of Function and Occupation Self-Care and Home Care: mod (A) ADLS, max (A)IADLs Employment Status: on disability Leisure Activites/Hobbies: Driving: Sleeping: Vision: Balance: Pain Assessment Pain Score: (R)chest wall Pain Scale Used: Numeric (0 - 10) Pain Location and Description: 04/16 Aggravating Factors: Alleviating Factors: Skin and Soft Tissue Assessment Skin and Soft Tissue: Wound Comments: (R) chest wall- axilla to chest wall, with adipose tissue exposed Nerve assessment Ulnar Nerve: Median Nerve: Radial Nerve: Comments: Sensory Assessment Temperature: Light Touch: Proprioception: Vibration: Comments: Measured patient's UE lymph volume LLIS= 77% Edema Assessment Upper Extremity: Lower Extremity: Comments: pitting edema on trunk Dexterity Assessment Dexterity: Comments: Special Tests Comments: AROM (PROM) Strength Lower Extremity Hip Flexion: Knee Flexion: Knee Extension: Ankle Dorsiflexion: Ankle Plantarflexion: Ankle Eversion: Ankle Inversion: Comments: Cervical Flexion: Extension: Lateral Flexion: Rotation: Comments: Shoulder Flexion: Extension: Abduction: Internal Rotation: External Rotation: Comments: Flexion: Extension: Abduction: Internal Rotation: External Rotation: Comments: Elbow Flexion: Extension: Forearm Pronation: Forearm Supination: Comments: Flexion: Extension: Forearm Pronation: Forearm Supination: Comments: Wrist Flexion: Extension: Ulnar Deviation: Radial Deviation: Comments: Flexion: Extension: Ulnar Deviation: Radial Deviation: Comments: Thumb Thumb CMC Flexion: Thumb MCP Flexion: Thumb IP Flexion: Radial Abduction: Palmar Abduction: Opposition: Comments: Digits Index MCP: PIP: DIP: Long MCP: PIP: DIP: Ring MCP: PIP: DIP: Small MCP: PIP: DIP: Comments: Gross Grasp: Lateral Pinch: Two-Point Pinch: Three-Jaw Laurent: Comments: Patient Education 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 Barriers to Learning: Readiness for Learning: Who was educated? Comments: Plan of Care Assessment: Based on initial evaluation patient presents with (B)UE lymphedema stage II with intact skin of the UE, lymphedema of the trunk with pitting and open wound of the (R)axilla to chest wall (followed by wound care). Her current lymph volume measurements are as follows: 333.7cm, 277.1cm a 56.6cm difference. LLIS= 77% impact on patient's daily life. As patient presents with impaired skin integrity, increased risk of infection, pain, impaired ROM it is recommended that patient receive skilled OT/ lymphedema intervention in order for patient to achieve her PLOF, maintain skin integrity and reduce risk of infection. Thank you for your referral. STG Duration: 2 weeks Short Term Goals: Patient will reduce (R)UE lymph volume by 10% LTG Duration: 4 weeks Care Home Goals: Patient will be (I) with donning/doffing day and night compression garments Patient will be (I) with HEP patient will be (I) skin care/ hygiene in order to reduce risk of infection patient will be (I) with self MLD Frequency and Duration: The patient will be seen 4x a week for 2 weeks, decrease to 3x a week for 2 weeks Treatment Plan: Therapeutic Exercise Therapeutic Activity Home Exercise Program Patient Education Edema Control ADL Training Cold Packs Joint Mobilization Soft Tissue Mobilization Kinesiotaping Other (see comments) Treatment Plan Comments: Skilled OT eval and treat, CDT Lymphedema Treatment Plan: Compression Bandaging Exercise: Stretching, strengthening, manual therapy Family/Caregiver Training Manual Lymphatic Drainage Referral for compression garment and instructions for donning/doffing Self Care Training: bandaging, skin care, self massage Skin Care Education Wound Care Needs Lymphedema Treatment Plan Comments: Continue with CDT Electronically Signed By: RAMBO Chandler/MARTÍN Salinas Reviewed/agree with student documentation: Therapist: Please sign and return to therapist, thank you for your referral.
--- NOTE | 2024-08-25 13:39 | MHC.OT.DC ---
[address] [phone] F: [phone] Occupational Therapy Discharge Note Patient Name: Harper Goode Provider: May Graf Diagnosis: (R) breast cancer, (B)mastectomy Date of Surgery: Date of Evaluation: 04/24/24 Date of Discharge: Treatments to Date: 1 Cancellations to Date: No Shows to Date: Discharge Status: Patient Elected to Stop Visit Non-compliance Discharge Summary: Patient is d/c due to facilities no show policy Electronically Signed By: RAMBO Chandler/L, CLT Reviewed/agree with student documentation: Therapist: Please Sign and return to therapist, thank you for your referral.
== END 2024-08-25 13:40 | disposition home or self-care (01) ==
LOC: HO.OT 13:03
PROVIDERS: PCP Internal Medicine; Visit Provider Surgery
DX: I97.2 Postmastectomy lymphedema syndrome (principal)
CPT/HCPCS: 97167; 97535

== ENCOUNTER 2025-07-02 16:57 | Emergency (ER) | payer MEDICAID, SELFPAY ==
--- NOTE | ~2025-07-02 | XR_ITS ---
CLINICAL HISTORY: exertional dyspnea 2 view chest x-ray. Comparison: 04/08/2024 Findings: No consolidation or effusion. Stable right apical scarring. Cardiac and mediastinal contours are stable. Stable port catheter overlying left hemithorax, tip near cavoatrial junction. Bones unremarkable. Impression: 1. No acute pulmonary disease. This document has been electronically signed by: Harris Castaneda MD on 07/02/2025 18:41:13
--- NOTE | ~2025-07-02 | CT_ITS ---
CLINICAL HISTORY: Swelling; ? Periauricular Abscess, ALSO MASTOID TENDERNESS CT soft tissue neck with contrast Comparison: None provided Findings: There is a left internal jugular vein chest port with catheter tip in the superior vena cava. The visualized intracranial contents are unremarkable. Pharyngeal mucosal space, parapharyngeal fat, prevertebral tissues, and epiglottis are within normal limits. Salivary glands are within normal limits. No sialoliths. No drainable fluid collections around the periauricular regions bilaterally. There is right-sided mastoiditis with near-complete opacification of the right mastoid air cells. Fluid is seen in the right external auditory canal. No obvious right temporal bone destruction and the cochlea and semicircular canals are grossly intact on this nondedicated CT. Left mastoid air cells are clear. There is ethmoid and bilateral maxillary sinus disease. Bilateral internal jugular veins are patent. No cervical lymphadenopathy. No suspicious thyroid nodules. Tracheostomy in place terminating in the mid trachea. There is a radiopaque object in the proximal esophagus (series 3, image 285) with nonspecific inflammatory changes noted superiorly (series 3, image 225). The radiopaque object does not appear to be connected to the tracheostomy but lies immediately left posterolateral to it. Visualized aorta, cervical great vessels, and pulmonary arteries are unremarkable on this nondedicated examination. Right apical scarring and interstitial lung changes. No acute fracture or dislocation. IMPRESSION: Right-sided mastoiditis with near-complete opacification of the right mastoid air cells. No periauricular abscess, however there is fluid in the right external auditory canal. No obvious right temporal bone destruction and the cochlea and semicircular canals are grossly intact on this nondedicated CT. Tracheostomy terminating in the mid trachea Radiopaque object in the proximal esophagus that does not appear contiguous with the tracheostomy anteriorly. There is nonspecific inflammatory change in the esophagus superior to the radiopaque object. Correlate for inadvertent foreign body ingestion. This document has been electronically signed by: Mario Santoyo MD on 07/03/2025 00:38:12
--- NOTE | 2025-07-02 17:06 | ECG_ITS ---
Test Reason : cp Blood Pressure : */* mmHG Vent. Rate : 118 BPM Atrial Rate : 118 BPM P-R Int : 144 ms QRS Dur : 78 ms QT Int : 326 ms P-R-T Axes : 54 -27 58 degrees QTcB Int : 456 ms Sinus tachycardia Inferior infarct (cited on or before 20-Sep-2023) Abnormal ECG When compared with ECG of 13-Jan-2024 13:02, No significant change was found Referred By: Generic ED Physician Electronically Signed By: DAVONTE YU MD
[2025-07-02 17:14] VITALS: BP 160/80; PULSE 106; RESP 20; TEMP 37.9; O2SAT 96; BMI 35.0
--- NOTE | 2025-07-02 17:14 | ED_ITS ---
HPI - Chest Pain General Chief Complaint: Chest Pain Stated Complaint: CP, SOB, ear pain, increased bp Time Seen by Provider: 07/02/25 20:10 Source: patient Mode of arrival: ambulatory Limitations: no limitations History of Present Illness ED Provider: Rajat GALLEGO HPI narrative: The patient is a 64-year-old female with a remote history of breast cancer with bilateral mastectomy, throat cancer status post tracheostomy, lung cancer, and chronic lymphedema secondary to her breast cancer presenting to the ED with multiple complaints. The patient reports she is currently in remission from any known active cancer, and not undergoing any active radiation or chemotherapy. The patient reports she presents primarily for evaluation of right upper extremity swelling increased from her baseline. Patient reports a history of lymphedema in the right upper extremity which often develops cellulitis when it increses, and 3 times has progressed to sepsis, the most recent was 2 years ago. Patient reports she is using her compression sleeve as directed, and denies any injury/trauma to the arm. The patient's also reports she was recently seen by her ENT provider for evaluation of a right ear infection, which was treated with polymyxin drops for the past 14 days, finish the medication on Saturday, 3 days ago. The patient reports a history of idiopathic chronic right tympanic perforation for which she follows with ENT and requires occasional drainage of fluid. Patient reports she was scheduled to follow up with ENT on 06/25 but it was canceled and she has been able to reschedule. Patient reports over the past 2-3 days she noted swelling of the inferior/anterior aspect of her right ear radiating to her right jaw without trismus or painful range of motion of the jaw. Patient also reports she is experiencing some right-sided chest pain, the patient suffers from a chronic anterior chest wall radiation wound s/p breast cancer treatment 7?years ago. The patient reports the wound actually appears markedly improved compared to the past year, has been receiving wound care at home with good effect. Patient reports however the pain is new and contributing to her ED visit today. The patient denies associated cough, abdominal pain, vomiting, diarrhea, or urinary complaints. The patient reports she has had low-grade fevers up to 101 over the past 2-3 days. Related Data Home Medications ?Medication ?Instructions ?Recorded ?Confirmed albuterol sulfate 2.5 mg/3 mL 2.5 mg inhalation TID 01/13/24 (0.083 %) solution for nebulization arformoterol 15 mcg/2 mL solution 2 ml inhalation BID 09/20/23 01/13/24 for nebulization budesonide 0.5 mg/2 mL suspension 0.5 mg inhalation BI D 09/20/23 01/13/24 for nebulization clonazepam 0.5 mg tablet 0.5 mg PO TID 09/20/2301/12 duloxetine 30 mg capsule,delayed 30 mg PO BEDTIME 09/0501/13/24 release duloxetine 60 mg capsule,delayed 60 mg PO DAILY 01/13/24 release levothyroxine 100 mcg tablet 100 mcg PO DAILY@0600 01/13/24 morphine 100 mg tablet,extended 100 mg PO BID 09/20/23 01/13/24 release omeprazole 20 mg capsule,delayed 20 mg PO DAILY@0630 0 09/20/23 01/13/24 release oxycodone 10 mg tablet 20 mg PO Q4H PRN pain 01/13/24 trazodone 150 mg tablet 150 mg PO BEDTIME 09/20/23 0 01/13/24 diphenhydramine 25 1 tab DAILY PRN Sleep 01/13/24 mg-acetaminophen 500 mg tablet (Tylenol PM Extra Strength) docusate sodium 100 mg capsule 100 mg PO DAILY PRN Con stipation 01/13/24 01/13/24 (Colace) ibuprofen 600 mg tablet 600 mg PO Q6H PRN Pain 01/1201/13/24 polyethylene glycol 3350 17 17 g PO DAILY PRN Constipa tion 01/13/24 01/13/24 gram/dose oral powder (Miralax) Previous Rx's ?Medication ?Instructions ?Recorded doxycycline monohydrate 100 mg 100 mg PO BID #10 caps 01/17/24 capsule amoxicillin 500 mg capsule 500 mg PO TID 7 days #21 ca ps 04/08/24 doxycycline hyclate 100 mg capsule 100 mg PO BID 7 day s #14 caps 04/08/24 Allergies Allergy/AdvReac Type Severity Reaction Status Date / Time No Known Allergies Allergy Verified 07/02/25 17:18 Review of Systems 2 Review of Systems: Yes all other systems are reviewed and are negative PMFSH Past Medical History Medical History Mixed conductive and sensorineural hearing loss of right ear Former smoker Mood disorder Dysphagia Hypertension Hypothyroidism GERD (gastroesophageal reflux disease) Laryngeal carcinoma Chronic suppurative otitis media Metastatic malignant neoplasm to breast COPD (chronic obstructive pulmonary disease) Surgical History History of tympanoplasty of right ear S/P bilateral mastectomy Social History Social History Household Members: None Household Members Other:: family in apartment upstairs Housing: Apartment Do you presently have visiting nurse or other home services: Yes Patient Tobacco Use Status: Former Tobacco user Tobacco use type: Cigarette and Cigar Years Smoked: 40 e-Cigarette/Vaping Use: Never Used Second Hand Smoke Exposure: No Substance Use Type: Marijuana Advance Directives: No Advance Directives Information Provided: No Do you have a plan to hurt others: No Plan service: No Physical Exam 2 Vital Signs: Vital Signs: Last Vital Signs Temp 98.9 F 07/03/25 00:37 Pulse 74 07/03/25 00:37 Resp 14 07/03/25 00:37 BP 108/56 L 07/03/25 00:37 Pulse Ox 97 07/03/25 00:37 O2 Del Method Room Air 07/03/25 00:37 BMI result Body Mass Index 35.0 CONSTITUTIONAL: The patient appears non-toxic, well nourished and in no acute distress. Vital signs as documented. HEAD: Atraumatic, normocephalic. EYES: EOMs grossly intact, pupils equal, conjunctiva clear, no exudate. ENT: Nares patent, no discharge. Airway patent, no audible stridor, visible mucosa is pink and moist without noted lesions. Right auricular canal has white discharge, TM appears unremarkable, there is a 2-3 cm ovoid area of swelling noted immediately beneath the right TMJ and extending towards the ear, area is non erythematous, non fluctuant, mildly tender. NECK: Tracheostomy is well-appearing, no drainage or maceration of skin., no other obvious masses or gross abnormalities. CHEST: Symmetric movement, there is a 4 cm x 8 cm area of scar tissue noted to the right lateral anterior chest/adnexa consistent with a reported area of wound, there are 3-4 subcentimeter circular areas of maceration with serosanguineous drainage without evidence of surrounding cellulitis. Chest is otherwise normal in appearance. LUNGS: LS present and CTAB, no w/r/r. Non-labored work of breathing. CARDIAC: Regular Rhythm, S1/S2 appreciated, no murmurs, rubs or gallops. ABDOMEN: Abdomen soft and non-tender x4 quadrants, no palpable masses or organomegaly. : Deferred. EXTREMITIES: Normal tone, moves all extremities spontaneously without reported pain. No obvious acute injury or deformity noted. NEURO: Alert and oriented x3, CN II-XII appear grossly intact. Cerebellar Functioning grossly intact. No obvious sensory or motor deficits. Speech clear and appropriate. PSYCH: normal affect, appropriate eye contact, fluid speech, with appropriate response to questioning. No reported suicidality or homicidality. SKIN: Warm, dry, color appropriate, normal turgor. No rashes noted. Course Course Course Narrative: This is a Rapid Medical Exam performed in triage by Natalie Gaming PA-C. Full HPI, ROS and PE to be performed by primary ED provider. 64-year-old female with a past medical history of COPD, GERD, hypothyroid, HTN, mood disorder, laryngeal carcinoma presenting to the ED c/o chest pain, exertional dyspnea, URI sx, RUE swelling & discoloration x yesterday. PE: trach - talking in complete sentences, RUE w/mild swelling. Low grade temp 100.2 Plan: EKG, labs, CXR, SARs Medications Administered Generic Name Dose Route Start Last Admin Trade Name Freq PRN Reason Stop Dose Admin Vancomycin HCl 2,000 mg in 500 mls @ 250 mls/hr 07/03/25 01:40 07/03/25 02:09 Vancomycin/Ns IV 07/03/25 03:39 250 mls/hr ONCE ONE Administration Discontinued Medications Generic Name Dose Route Start Last Admin Trade Name Freq PRN Reason Stop Dose Admin Ceftriaxone Sodium 2 gm/ 50 mls @ 100 mls/hr 07/03/25 01:40 07/03/25 02:08 Sodium Chloride IV 07/03/25 02:09 100 mls/hr ONCE ONE Administration Iohexol 60 ml 07/02/25 22:53 07/02/25 23:00 Iohexol 350 Mg/Ml 100 Ml Infus..Btl IV 07/02/25 22:54 60 ml ONCE ONE Administration Medical Decision Making Medical Decision Making [facility] Narrative: 9:32 PM 07/02/2025 (Coral GALLEGO): The patient is a 64-year-old female with a remote history of breast cancer with bilateral mastectomy, throat cancer status post tracheostomy, lung cancer, and chronic lymphedema secondary to her breast cancer presenting to the ED with multiple complaints. The patient reports she is currently in remission from any known active cancer, and not undergoing any active radiation or chemotherapy. The patient reports she presents primarily for evaluation of right upper extremity swelling increased from her baseline. Patient reports a history of lymphedema in the right upper extremity which often develops cellulitis when it increses, and 3 times has progressed to sepsis, the most recent was 2 years ago. Patient reports she is using her compression sleeve as directed, and denies any injury/trauma to the arm. The patient's also reports she was recently seen by her ENT provider for evaluation of a right ear infection, which was treated with polymyxin drops for the past 14 days, finish the medication on Saturday, 3 days ago. The patient reports a history of idiopathic chronic right tympanic perforation for which she follows with ENT and requires occasional drainage of fluid. Patient reports she was scheduled to follow up with ENT on 06/25 but it was canceled and she has been able to reschedule. Patient reports over the past 2-3 days she noted swelling of the inferior/anterior aspect of her right ear radiating to her right jaw without trismus or painful range of motion of the jaw. Patient also reports she is experiencing some right-sided chest pain, the patient suffers from a chronic anterior chest wall radiation wound s/p breast cancer treatment 7?years ago. The patient reports the wound actually appears markedly improved compared to the past year, has been receiving wound care at home with good effect. Patient reports however the pain is new and contributing to her ED visit today. The patient denies associated cough, abdominal pain, vomiting, diarrhea, or urinary complaints. The patient reports she has had low-grade fevers up to 101 over the past 2-3 days. On exam patient is well-appearing, there is lymphedema noted to the right upper extremity without associated erythema, warmth, or open injury. The patient's right chest demonstrates 2-3 small areas of maceration with serosanguineous drainage, no evidence of surrounding erythema, compared to picture from 1 year ago the area appears remarkably improved, no evidence of active infection. Lung sounds clear. There is a 2-3 cm ovoid area of swelling noted beneath the right TMJ and extending towards the ear, no ulceration or fluctuance. Right ear exam demonstrates white drainage from the right ear, tympanic membrane appears unremarkable. Laboratory evaluation demonstrates no leukocytosis, anemia, electrolyte abnormality, or MAGI. LFTs are unremarkable, EKG is nonischemic, troponin is negative. The patient's viral swabs are negative for influenza, RSV, and COVID. The patient's chest x-ray shows no focal consolidation. Patient will be evaluated with soft tissue of the neck to evaluate pathology of the swelling. Patient is requesting prophylactic antibiotics to prevent recurrent cellulitis and sepsis due to the increased swelling of the right arm, pending unremarkable CT imaging the patient will be appropriate for discharge with p.o. antibiotics. 1:50 AM 07/03/2025 (Coral GALLEGO): The patient's CT has resulted and shows right-sided mastoiditis with a near-complete opacification of the right mastoid air cells. There is no periauricular abscess identified, however there is fluid noted in the right external auditory canal. There is no obvious right temporal bone destruction and the cochlea and semicircular canals are grossly intact. There is also a radiopaque object in the proximal esophagus which is not contiguous with the tracheostomy, patient was re-interviewed and reports this is a known surgical device that is not new, no concern for foreign body ingestion. The patient will be initiated on vancomycin and Rocephin for acute mastoiditis. Transfer center at [facility] was contacted for transfer as we do not have ENT available at this facility, [facility] is unable to accepted the patient's transfer this time, we will contact [facility]. 2:14 AM 07/03/2025 (Coral GALLEGO): The patient's case has been discussed with the [facility] transfer Center who accepted the patient to Dr. Braga in the [facility] ED. Lab Data MDM Lab Attestation statement: I reviewed the patient's lab results. 07/02/25 17:53 07/02/25 17:53 Labs: Lab Results 07/02/25 Range/Units 17:53 WBC 5.8 (4.8-10.8) X10*3/uL RBC 4.30 (4.20-5.50) X10*6/uL Hgb 12.4 D (12.0-16.0) g/dl Hct 39.3 D (37.0-47.0) % MCV 91.4 (80.0-98.0) fL MCH 28.8 (27.0-33.0) pg MCHC 31.6 (31.0-35.0) g/dl RDW 14.1 (11.0-16.0) % Plt Count 236 (160-400) X10*3/uL MPV 10.2 (9.4-12.3) fL Immature Gran % (Auto) 0.3 (0.0-0.4) % Neut % (Auto) 74.9 H (45-73) % Lymph % (Auto) 17.7 L (20-40) % Mercer % (Auto) 4.5 (2-11) % Eos % (Auto) 2.1 (0-4) % Baso % (Auto) 0.5 (0-2) % Lymph # (Auto) 1.0 L (1.2-4.9) X10*3/uL Mercer # (Auto) 0.3 (0.1-1.2) X10*3/uL Eos # (Auto) 0.1 (0.0-0.4) X10*3/uL Baso # (Auto) 0.0 (0.0-0.2) X10*3/uL Abs Immat Gran (auto) 0.02 (0.00-0.03) X10*3/uL Absolute Neuts (auto) 4.3 (2.0-8.3) x10*3/uL Absolute Nucleated RBC 0.000 (0.0-0.012) X10*3/uL Nucleated RBC % (auto) 0.0 (0.0-0.2) /100WBC Smear Tech's Comments VERIFIED PT 13.2 (11.2-13.5) SEC INR 1.1 (0.9-1.1) Sodium 140 (135-145) mmol/L Potassium 4.5 D (3.3-5.1) mmol/L Chloride 107 (96-108) mmol/L Carbon Dioxide 23 (22-29) mmol/L Anion Gap 15 (12-20) BUN 9 (9-16) mg/dL Creatinine 1.26 (0.5-1.4) mg/dL Estim Creat Clear Calc 45.5 Estimated GFR 43 Random Glucose 100 (60-115) mg/dL Calcium 9.5 (8.4-10.2) mg/dL Magnesium 2.0 (1.6-2.6) mg/dL Total Bilirubin 0.2 (0.0-1.0) mg/dL Direct Bilirubin < 0.2 (0.0-0.5) mg/dL AST 21 (5-31) U/L ALT 7 (0-31) U/L Alkaline Phosphatase 94 (39-117) U/L Troponin I High Sens 4.7 D (<3.5-17.0) ng/L NT-Pro-B Natriuret Pep 294.7 (<300) pg/mL Total Protein 7.5 (6.5-8.0) g/dL Albumin 4.0 (3.5-5.0) g/dL Influenza Type A (PCR) NEGATIVE (Negative) Influenza Type B (PCR) NEGATIVE (Negative) RSV RNA Qual (PCR) NEGATIVE (Negative) SARS-CoV-2 RNA (RT-PCR) NEGATIVE (Negative) Independent Interpretation I performed an independent interpretation of an: EKG (EKG shows sinus tachycardia with a rate of 118, no evidence of acute ischemia, no ST elevation, no ectopy, QTC 456, compared to previous on 01/13/2024 there are no significant morphology changes.) Radiology Impression Discussion of test interpretation with radiology: I have reviewed the radiologist's reading. Radiologist Impression: 2 view chest x-ray. Comparison: 04/08/2024 Findings: No consolidation or effusion. Stable right apical scarring. Cardiac and mediastinal contours are stable. Stable port catheter overlying left hemithorax, tip near cavoatrial junction. Bones unremarkable. Impression: 1. No acute pulmonary disease. This document has been electronically signed by: Harris Castaneda MD on 07/02/2025 18:41:13 CT soft tissue neck with contrast Comparison: None provided Findings: There is a left internal jugular vein chest port with catheter tip in the superior vena cava. The visualized intracranial contents are unremarkable. Pharyngeal mucosal space, parapharyngeal fat, prevertebral tissues, and epiglottis are within normal limits. Salivary glands are within normal limits. No sialoliths. No drainable fluid collections around the periauricular regions bilaterally. There is right-sided mastoiditis with near-complete opacification of the right mastoid air cells. Fluid is seen in the right external auditory canal. No obvious right temporal bone destruction and the cochlea and semicircular canals are grossly intact on this nondedicated CT. Left mastoid air cells are clear. There is ethmoid and bilateral maxillary sinus disease. Bilateral internal jugular veins are patent. No cervical lymphadenopathy. No suspicious thyroid nodules. Tracheostomy in place terminating in the mid trachea. There is a radiopaque object in the proximal esophagus (series 3, image 285) with nonspecific inflammatory changes noted superiorly (series 3, image 225). The radiopaque object does not appear to be connected to the tracheostomy but lies immediately left posterolateral to it. Visualized aorta, cervical great vessels, and pulmonary arteries are unremarkable on this nondedicated examination. Right apical scarring and interstitial lung changes. No acute fracture or dislocation. IMPRESSION: Right-sided mastoiditis with near-complete opacification of the right mastoid air cells. No periauricular abscess, however there is fluid in the right external auditory canal. No obvious right temporal bone destruction and the cochlea and semicircular canals are grossly intact on this nondedicated CT. Tracheostomy terminating in the mid trachea Radiopaque object in the proximal esophagus that does not appear contiguous with the tracheostomy anteriorly. There is nonspecific inflammatory change in the esophagus superior to the radiopaque object. Correlate for inadvertent foreign body ingestion. This document has been electronically signed by: Mario Santoyo MD on 07/03/2025 00:38:12 Discharge Plan Discharge Clinical Impression: Acute mastoiditis Patient Disposition: Xfer Acute Care Hospital Transfer Details: [facility] ED - Dr. Braga Prescriptions: No Action albuterol sulfate 2.5 mg /3 mL (0.083 %) solution for nebulization 2.5 mg inhalation TID clonazepam 0.5 mg tablet 0.5 mg PO TID morphine 100 mg tablet extended release 100 mg PO BID duloxetine 30 mg capsule,delayed release(DR/EC) 30 mg PO BEDTIME arformoterol 15 mcg/2 mL solution for nebulization 2 ml inhalation BID oxycodone 10 mg tablet 20 mg PO Q4H PRN (Reason: pain) levothyroxine 100 mcg tablet 100 mcg PO DAILY@0600 trazodone 150 mg tablet 150 mg PO BEDTIME omeprazole 20 mg capsule,delayed release(DR/EC) 20 mg PO DAILY@0630 budesonide 0.5 mg/2 mL suspension for nebulization 0.5 mg inhalation BID duloxetine 60 mg capsule,delayed release(DR/EC) 60 mg PO DAILY docusate sodium [Colace] 100 mg Capsule 100 mg PO DAILY PRN (Reason: Constipation) ibuprofen 600 mg Tablet 600 mg PO Q6H PRN (Reason: Pain) polyethylene glycol 3350 [Miralax] 17 gram/dose Powder 17 g PO DAILY PRN (Reason: Constipation) diphenhydramine-acetaminophen [Tylenol PM Extra Strength] 25-500 mg Tablet 1 tab DAILY PRN (Reason: Sleep) doxycycline monohydrate 100 mg capsule 100 mg PO BID Qty: 10 0RF amoxicillin 500 mg capsule 500 mg PO TID 7 Days Qty: 21 0RF doxycycline hyclate 100 mg capsule 100 mg PO BID 7 Days Qty: 14 0RF Print Language: Mexican
[2025-07-02 18:06] LABS: INTERNATIONAL NORM RATIO 1.1 (0.9-1.1); Prothrombin Time 13.2 SEC (11.2-13.5)
[2025-07-02 18:10] LABS: Hematocrit 39.3 % (37.0-47.0); Hemoglobin 12.4 g/dl (12.0-16.0); Imm Gran Abs Auto 0.02 X10*3/uL (0.00-0.03); Imm Gran Pct Auto 0.3 % (0.0-0.4); Lymphocytes Absolute Auto 1.0 X10*3/uL (1.2-4.9); MANUAL DIFF FLAG SCAN; Mean Corpuscular HGB Conc 31.6 g/dl (31.0-35.0); Mean Corpuscular Hemoglobin 28.8 pg (27.0-33.0); Mean Corpuscular Volume 91.4 fL (80.0-98.0); NRBC Abs Auto 0.000 X10*3/uL (0.0-0.012); NRBC Pct Auto 0.0 /100WBC (0.0-0.2); PLT CLUMP 1; Red Blood Count 4.30 X10*6/uL (4.20-5.50); SCAN SMEAR FLAG 1
[2025-07-02 18:16] LABS: Alanine Aminotransferase 7 U/L (0-31); Albumin Level 4.0 g/dL (3.5-5.0); Alkaline Phosphatase 94 U/L (39-117); Anion Gap 15 (12-20); Aspartate Amino Transferase 21 U/L (5-31); Blood Urea Nitrogen 9 mg/dL (9-16); Calcium 9.5 mg/dL (8.4-10.2); Carbon Dioxide 23 mmol/L (22-29); Chloride 107 mmol/L (96-108); Creatinine Clr Calc Pharmacy 45.5; Estimated Glomerular Filt Rate 43; Magnesium 2.0 mg/dL (1.6-2.6); Potassium 4.5 mmol/L (3.3-5.1); Sodium 140 mmol/L (135-145); Total Protein 7.5 g/dL (6.5-8.0)
[2025-07-02 18:20] LABS: NT Pro B Type Natriuretic Pept 294.7 pg/mL (<300); Troponin-I High Sensitivity 4.7 ng/L (<3.5-17.0)
[2025-07-02 18:48] LABS: White Blood Count 5.8 X10*3/uL (4.8-10.8)
[2025-07-02 18:49] LABS: Platelet Count 236 X10*3/uL (160-400)
[2025-07-02 18:55] LABS: Resp Syncy Virus RNA Qual PCR NEGATIVE (Negative); SARS COV2 PCR INHOUSE NEGATIVE (Negative)
--- OUTSIDE RECORDS SUMMARY | 2025-07-02 19:42 | XMS_ITS | Data Portability ---
Author Organization [place] - [facility], Allergy Address [address] [address] Care Team Providers Care Data Center Architect Name Role Phone RADHA ACEVES Primary Care Provider Assessment Encounter Date Assessment Date Assessment LastModified by Organization Details LastModified Time 02/13/2024 02/13/2024 Right ear is demonstrating rather significant amount of purulent discharge. The ear was suctioned out today of purulent debris and the canal was filled with Cortisporin ointment. This will come out on its own over time. I will have her come back to see if patient is insistent in 4 to 6 weeks for reevaluation. We discussed the importance of her getting back on a regular preventative cleaning schedule to prevent future issues with otorrhea. This can be set up with a PA every 3 to 4 months thereafter. Not available 02/13/2024 15:45:29 02/19/2025 02/19/2025 The right ear was suctioned out today of purulent and squamous debris and cultured. I sent in ofloxacin which can be changed if necessary. Follow-up 2 to 3 weeks. She will need routine cleanings every 3 to 4 months. Her left ear feels blocked. I reassured her there was not any cerumen. This loss is likely related to her underlying hearing loss. She had audiogram at her last visit showing mild sloping to severe to profound loss with excellent word recognition. [email or web address] Not available 02/19/2025 09:57:56 04/01/2025 04/01/2025 Right ear is demonstrating rather significant amount of persistent purulent discharge following use of ofloxacin drops, with some apparent fungal elements. The ear was thoroughly debrided today of purulent debris and the canal was filled with Otomax ointment. This will come out on its own over time. We will not use any topical drops at the moment. I will have her come back to see a physician dermatology physician assistant in 3 weeks or so for reevaluation, cleaning and assessment for need for additional application of ointment. We discussed the importance of her getting back on a regular preventative cleaning schedule to prevent future issues with otorrhea. This can be set up with a PA every 3 to 4 months thereafter. Audiometric testing updated today for the left ear. She has a mild to moderate sensorineural hearing loss and is an excellent candidate for amplification. I have given her a copy of her audiogram, a list of [facility] hearing aid providers, and medical clearance for amplification for the left ear. We both agreed that attempts at use of amplification for the right ear would lead to worsened problems with otorrhea. [email or web address] Not available 04/01/2025 12:23:23 05/03/2025 05/03/2025 64-year-old female presents for reevaluation of otorrhea. On examination there is scant otorrhea lining the canal on the right side cleared with suction. Scant otorrhea cleared from middle ear space via tympanic membrane perforation. Otomax was reapplied and she will continue dry ear precaution. Follow-up in 2 to 3 weeks to ensure full resolution. After which would recommend ear cleaning every 3 to 4 months to prevent future infection. [email or web address] Not available 05/03/2025 15:32:41 06/10/2025 06/10/2025 64-year-old female presents for reevaluation of otorrhea. On examination there is a significant recurrence in copious brown otorrhea. A culture swab was taken and sent for microbiologic examination. The ear was thoroughly debrided today under the binocular microscope. I am recommending the use of Cortisporin drops to be used 3 times a day for the next 2 weeks, using a pumping action to get the drops into the middle ear space. Follow-up with me or PA in 2 weeks or so for reevaluation. We will contact her if the culture results require change in antibiotic coverage. [email or web address] Not available 06/10/2025 16:05:06 Plan of Treatment Reminders Order Date Submit Date Provider Last Modified By Organization Details Last Modified Time Details Appointments None recorded. Lab fungus, culture, unspecified specimen 2024 [place] [facility] (Centralized Electronic Ordering - All Locations), Patient Can Go To The Location Of Their Choice, [id number] 04:08:40 culture, bacterial 2024 [place] [facility] ([facility]ized [facility] Ordering - All Locations), Patient Can Go To The Location Of Their Choice, [address] 04:08:41 unlisted lab - aerobic cult + fungus cult 2024 [place] [facility] (Centralized [facility] Ordering - All Locations), Patient Can Go To The Location Of Their Choice, [address] 09:42:46 Referral None recorded. Procedures None recorded. Surgeries None recorded. Imaging None recorded. Medication Orders neomycin-po lymyxin-hyd rocort 3.5 mg-10,000 unit/mL-1 % ear drops,susp 2024 [facility]/Pharmacy #[id number], [address] [place], [address], 16:01:55 ofloxacin 0.3 % ear drops 2024 [facility]/Pharmacy #[id number], [address] [place], [address], 05:02:08 Patient TargetsNo targets recorded. Patient InstructionsNo instructions recorded. Reason for Referral None Reported. Results Created Date Observation Date Name Description Value Unit Range Abnormal Flag Note LastModifiedBy Organization Detail LastModifiedTime 02/20/2002/24/2025 AEROB IC CULT + FUNGU S CULT aerobic bacterial culture Final report abnormal Not Available [facility] ([facility]) [address] [facility], [place], [address], 03/22/2025 10:16:58 02/20/2002/24/2025 AEROB IC CULT + FUNGU S CULT result 1 Staphy lococc us aureus abnormal Based on susce ptibi lity to oxaci llin this isola te would be susce ptibl e to: *Peni cilli nase- stabl e penic illin s, such as: Cloxa cilli n, Diclo xacil shoaib, Nafci llin *Beta -lact am combi natio n agent s, such as: Amoxi cilli n-cla vulan ic acid, Ampic illin -sulb actam , Piper acill in-ta zobac babb *Oral cephe ms, such as: Cefac mireya, Cefdi margi, Cefpo doxim e, Cefpr ozil, Cefur oxime , Cepha lexin , Lorac arbef *Pare ntera l cephe ms, such as: Cefaz madison, Cefep loraine, Cefot axime , Cefot jose, Cefta rolin e, Cefti zoxim e, Ceftr iaxon e, Cefur oxime *Carb apene ms, such as: Dorip enem, Ertap enem, Imipe nem, Merop enem Most isola rufus of Staph yloco ccus sp. produ ce a beta- lacta lex enzym e rende ring them resis tant to penic illin . Pleas e conta ct the labor atory if penic illin is being consi dered for thera py. Moder ate growt h Not Available [facility] ([facility]) [address] [facility], [place], [address], 03/22/2025 10:16:58 02/20/20 25 02/24/2025 AEROB IC CULT + FUNGU S CULT result 2 COMMEN T abnormal Strep tococ cus pneum oniae Moder ate growt h This nonme ningi tis penic illin -susc eptib le pneum ococc al isola te can be consi dered susce ptibl e to the oral agent s amoxi cilli n, amoxi cilli n-cla vulan ic acid, ampic illin , cefac mireya, cefdi margi, cefdi toren , cefpo doxim e, cefpr ozil, cefur oxime , and lorac arbef , and to the paren teral agent s ampic illin , ampic illin -sulb actam , cefep loraine, cefot axime , cefti zoxim e, ceftr iaxon e, cefur oxime , ertap enem, imipe nem, and merop enem, for appro javier indic ation s. Doses of IV penic illin of at least 2 alia on units every 4 hours in adult s with jovani l renal funct ion (12 alia on units per day) are effec tive in treat ing nonme ninge al pneum ococc al infec tions due to strai ns that are susce ptibl e to penic illin . (CLSI 2011) Use of cefot axime or ceftr iaxon e in menin gitis requi res thera py with maxim um doses . (CLSI ) For cefot axime , use of inter preti ve crite kael for nonme ningi tis requi res doses appro priat e for gavin us pneum ococc al infec tions (e.g. , at least 1 g (adul ts) or 50 mg/kg (chil dren) every eight hours or more frequ ently ). (CLSI ) Use of penic illin in menin gitis requi res thera py with maxim um doses of IV penic illin (e.g. at least 3 alia on units every 4 hours in adult s with jovani l renal funct ion). (CLSI ) Not Available [facility] ([facility]) [address] [facility], [place], [address], 03/22/2025 10:16:58 02/20/20 25 02/24/2025 AEROB IC CULT + FUNGU S CULT result 3 COMMEN T abnormal Beta hemol ytic Strep tococ cus, group G Light growt h Penic illin and ampic illin are drugs of choic e for treat ment of beta- hemol ytic strep tococ billy infec tions . Susce ptibi lity testi ng of penic illin s and other beta- lacta m agent s appro javier by the FDA for treat ment of beta- hemol ytic strep tococ billy infec tions need not be perfo rmed routi toi becau se nonsu scept ible isola rufus are extre ulices rare in any beta- hemol ytic strep tococ cus and have not been repor yunier for Strep tococ cus pyoge britney (grou p A). (CLSI ) Susce ptibi lity not jovani lly perfo rmed on this organ ism. 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 Moder ate growt h Not Available [facility] ([facility]) [address] [place], [address], 03/22/2025 10:16:58 02/20/20 25 02/24/2025 AEROB IC CULT + FUNGU S CULT antimicrobia l susceptibili ty Commen t S = Susce ptibl e; I = Inter media te; R = Resis tant P = Posit louise; N = Negat louise MICS are expre ssed in micro grams per mL Antib iotic RSLT# 1 RSLT# 2 RSLT# 3 RSLT# 4 Cefot axime (meni ngiti s) S Cefot axime (non- menin gitis ) S Ceftr iaxon e (meni ngiti s) S Ceftr iaxon e (non- menin gitis ) S Cipro floxa alejandro S Clind amyci n S Eryth romyc in S Eryth romyc in S Genta micin S Levof loxac in S Levof loxac in S Linez olid S Merop enem S Moxif loxac in S Oxaci llin S Penic illin (oral pen V) S Penic illin IV (meni ngiti s) S Penic illin IV (non- menin g) S Rifam pin S Tetra cycli ne R Tetra cycli ne S Trime thopr im/Thompson lfa S Trime thopr im/Thompson lfa S Vanco mycin S Vanco mycin S Not Available [facility] ([facility]) [address] [facility], [place], [address], 03/22/2025 10:16:58 02/20/20 25 03/22/2025 AEROB IC CULT + FUNGU S CULT fungus (mycology) culture Final report Not Available [facility] ([facility]) [address] [facility], [place], [address], 03/22/2025 10:16:58 02/20/20 25 03/22/2025 AEROB IC CULT + FUNGU S CULT result 1 COMMEN T No yeast or mold isola yunier after 4 weeks . Not Available [facility] ([facility]) [address] [facility], [place], [address], 03/22/2025 10:16:58 02/14/20 audio gram No observ ation record ed. [email or web address] Not Available 2023 10:01:50 02/25/20 24 01/26/2019 imagi ng/di agnos tic resul t No observ ation record ed. [email or web address] Not Available 20:45:05 02/25/20 24 01/26/2019 imagi ng/di agnos tic resul t No observ ation record ed. [email or web address] Not Available 20:45:06 02/25/20 24 01/26/2019 audio gram No observ ation record ed. [email or web address] Not Available 20:45:40 04/01/20 audio gram No observ ation record ed. [email or web address] Not Available 2024 14:08:45 04/01/20 audio gram No observ ation record ed. [email or web address] Not Available 2024 14:08:45 Result Notes None recorded. Problems Name Problem SNOMED Code Status Onset Date Resolution Date Notes Provider Name and Address Organization Details Recorded Time Mixed conductiv e and sensorine ural hearing loss of right ear 26219530188 105 Active 2016 Mixed conductiv e and sensorine ural hearing loss, unilatera l, right ear with restricte d hearing on the contralat eral side; Note: Date Diagnosed : 08/14/2016 3:22 PM (H90.A31) Not Available [facility] 08/02/202 4 02:48:52 Central perforati on of right tympanic membrane [id number] 81602 Active 2016 Central perforati on of tympanic membrane, right ear; Note: Date Diagnosed : 08/14/2016 3:44 PM (H72.01) LINA CALI MD [address] [place] [address], [place], [address] , [facility] - [facility] 5 22:28:00 History of malignant neoplasm of larynx 542061807 Active 2016 Personal history of malignant neoplasm: Larynx; Note: Date Diagnosed : 08/14/2016 4:43 PM (V10.21) Persona l history of malignant neoplasm of larynx; Note: Date Diagnosed : 08/14/2016 4:43 PM (Z85.21) [mapped from ICD9 code: V10.21] Not Available [facility] 4 02:48:56 Sensorine ural hearing loss in left ear 90272130450 109 Active 2016 Sensorine ural hearing loss, unilatera l, left ear, with restricte d hearing on the contralat eral side; Note: Date Diagnosed : 10/11/2016 4:10 PM (H90.A22) LINA CALI MD [address] [place] [address], [place], [address] , [facility] 5 22:28:00 Dizziness and giddiness 373275659 Active 2016 Dizziness and giddiness ; Note: Date Diagnosed : 10/11/2016 4:29 PM (R42) Not Available [facility] 4 02:48:55 Chronic obstructi ve pulmonary disease 23860847 Active 2016 Chronic obstructi ve airway disease NOS; Note: Date Diagnosed : 10/12/2016 1:30 PM (J44.9) Not Available [facility] 4 02:48:59 Oropharyn geal dysphagia 45888514 Active 2016 Dysphagia , oropharyn geal phase; Note: Date Diagnosed : 10/12/2016 1:30 PM (R13.12) Not Available [facility] 4 02:48:57 Bilateral disorder of Eustachia n tubes 39449758690 67949 Active 2023 LINA CALI MD [address] [facility],[place] [address], [place], [address] , [facility] - [facility] 4 19:11:01 Otorrhea of right ear 78342174615 70291 Active 2023 LINA CALI MD [address] [facility],[place] [address], [place], [address] , [facility] - [facility] 5 22:28:00 Otorrhea 65192017 Active 2024 CLEO SYLVESTER MD [address] [place] [address],[place] [address], [place], [address] , [facility] - [facility] 5 09:48:39 Smoker 87142214 Active 2024 LINA CALI MD [address] [place] [address],[place] [address], [place], [address] , [facility] - [facility] 5 11:50:46 Bilateral hearing loss 38429233 Active 2024 ARTHUR MURDOCK [address] [place] [address],[place] [address], [place], [address] , [facility] - [facility] 5 12:08:39 Otorrhea 75642214 Active 2024 LINA CALI MD [address] [place] [address],[place] [address], [place], [address] , [facility] - [facility] 5 16:05:36 Problem Notes None recorded. Procedures Surgical History Date Name Laterality Status Provider Name and Address Organization Details Recorded Time EAC debris removal with microscope completed LINA CALI MD [address] [place] [address],[place] [address], [place], [address], [facility] - [facility] 06/10/2025 15:59:33 5 Air & Speech Audio with Tymps - 03087, 91542 & 57808 completed ARTHUR MURDOCK [address] [facility],[address], [place], [address], [facility] - [facility] 04/01/2025 12:07:22 5 EAC debris removal with microscope completed LINA CALI MD [address], [place], [address], [facility] - [facility] 04/01/2025 11:46:14 4 Air & Speech Audio with Tymps - 37599, 75118 & 37929 completed RICHARD ARELLANO [place], CCC-A [address], [place], [address], [place] - [facility] 02/13/2024 15:25:53 4 EAC debris removal with microscope completed LINA CALI MD [address] [facility],[place] [address], [place], [address], [place] - [facility] 02/13/2024 14:28:38 Imaging Results None recorded. Procedure Notes None recorded. Medical Equipment None Reported. Allergies No known drug allergies Medications Name Sig Start Date Stop Date Status Note LastModified by Organization Details LastModified Time amoxicill in 500 mg capsule TAKE 1 CAPSULE BY MOUTH 3 TIMES A DAY FOR 7 DAYS 02/19 completed Not Available Not Available Not Available silver sulfadiaz ine 1 % topical cream APPLY TO AFFECTED AREA EVERY DAY 02/12 completed Not Available Not Available Not Available doxycycli ne hyclate 100 mg capsule TAKE 1 CAPSULE BY MOUTH TWICE A DAY FOR 7 DAYS 02/19 completed Not Available Not Available Not Available albuterol sulfate 2.5 mg/3 mL (0.083 %) solution for nebulizat ion USE 1 VIAL VIA NEBULIZE R 3 TIMES A DAY active Not Available Not Available No t Available ibuprofen 800 mg tablet TAKE 1 TABLET (800 MG TOTAL) BY MOUTH EVERY 8 HOURS NEEDED FOR MILD OR MODERATE PAIN active Not Available Not Available No t Available ondansetr on HCl 8 mg tablet TAKE 1 TABLET BY MOUTH EVERY 8 HOURS IF NEEDED FOR NAUSEA OR VOMITING . 06/10 completed Not Available Not Available Not Available clonazepa m 0.5 mg tablet TAKE 1 TABLET BY MOUTH THREE TIMES A DAY NEEDED FOR ANXIETY active Not Available Not Available No t Available clonazepa m 1 mg tablet 10/03 completed Medicati on ID: [id number] D uration Value: 30 Brand Name: clonazep am Send Method: E-Prescr ibed Sub s Allowed: subs RAE Fisher al Instruct ion: TAKE 1 TAB IN AM, 1 TAB AT NOON, AND 2 TABS AT BEDTIME Medicati onGeneri cName: clonazep am Not Available Not Available Not Available venlafaxi ne ER 150 mg capsule,e xtended release 24 hr 02/19 completed Medicati on ID: [id number] D uration Value: 30 Brand Name: venlafax ine Send Method: E-Prescr ibed Sub s Allowed: subs RAE Fisher al Instruct ion: TAKE 1 CAPSULE TWICE A DAY Medi cationGe nericNam e: venlafax ine Not Available Not Available Not Available levothyro xine 100 mcg tablet TAKE 1 TABLET BY MOUTH EVERY DAY IN THE MORNING ON AN EMPTY STOMACH active Not Available Not Available No t Available oxycodone -acetamin ophen 5 mg-325 mg tablet 04/23 completed Medicati on ID: [id number] D uration Value: 30 Reason: () Brand Name: oxycodon e-acetam inophen Send Method: E-Prescr ibed Sub s Allowed: subs RAE Fisher al Instruct ion: TAKE 2 TABLETS EVERY 6 HOURS NEEDED FOR PAIN Med icationG enericNa me: oxycodon e-acetam inophen Not Available Not Available Not Available ofloxacin 0.3 % ear drops Instill 5 drops twice a day by otic route for 10 days, for right ear. 03/08 completed Not Available Not Available Not Available trazodone 100 mg tablet 02/12 completed Medicati on ID: [id number] D uration Value: 30 Brand Name: trazodon e Send Method: E-Prescr ibed Sub s Allowed: subs RAE Fisher al Instruct ion: TAKE 1 TABLET AT BEDTIME NEEDED M edicatio nGeneric Name: trazodon e Not Available Not Available Not Available morphine ER 100 mg tablet,ex tended release TAKE 1 TABLET BY MOUTH TWICE A DAY DO NOT CRUSH/CH EW OR SPLIT MAX DAILY AMOUNT 200MG 04/01 completed Not Available Not Available Not Available meclizine 25 mg tablet 10/03 completed Medicati on ID: [id number] D uration Value: 7 Brand Name: meclizin e Send Method: E-Prescr ibed Sub s Allowed: subs OK Speci al Instruct ion: TAKE 1 TABLET THREE TIMES DAILY ORALLY FOR 7 DAYS Med [facility] me[facility] Not Available Not Available Not Available morphine ER 60 mg tablet,ex tended release PLEASE SEE ATTACHED FOR DETAILED DIRECTIO NS active Not Available Not Available No t Available doxycycli ne monohydra te 100 mg capsule TAKE 1 CAPSULE BY MOUTH TWICE A DAY 02/19 completed Not Available Not Available Not Available cephalexi n 500 mg capsule TAKE 1 CAPSULE BY MOUTH TWICE A DAY FOR 7 DAYS 06/10 completed Not Available Not Available Not Available trazodone 150 mg tablet TAKE 1 TABLET BY MOUTH EVERYDAY AT BEDTIME active Not Available Not Available No t Available clotrimaz ole 1 % topical solution 02/12 completed Medicati on ID: [id number] D uration Value: 14 Prescri bed By Name: MERE Javier nd Name: clotrima zole Sen d Method: E-Prescr ibed Sub s Allowed: subs RAE Specjosh al Instruct ion: 4 drops to left ear twice a day X 14 days Med [facility]: clotrima zole Not Available Not Available Not Available omeprazol e 20 mg capsule,d elayed release TAKE 1 CAPSULE BY MOUTH EVERY DAY active Not Available Not Available No t Available budesonid e 0.5 mg/2 mL suspensio n for nebulizat ion INHALE 1 VIAL VIA NEBULIZE R TWICE A DAY 02/12 completed Not Available Not Available Not Available lorazepam 1 mg tablet 02/19 completed Medicati on ID: [id number] D uration Value: 30 Brand Name: lorazepa m Send Method: E-Prescr ibed Sub s Allowed: subs OK Speci al Instruct ion: TAKE 1 TABLET TWICE DAILY AND 2 TABLETS AT BEDTIME Medicati onGeneri cName: lorazepa m Not Available Not Available Not Available Cortispor in-TC 3.3 mg-3 mg-10 mg-0.5 mg/mL ear drops,torin pension 4 drop 05/29 completed Medicati on ID: [id number] D uration Value: 14 Prescri bed By Name: MERE Singh nd Name: Cortispo rin-TC S end Method: E-Prescr ibed Sub s Allowed: subs OK Medic ationGen ericName : Cortispo rin-TC Not Available Not Available Not Available tamoxifen 20 mg tablet 10/03 completed Medicati on ID: [id number] D uration Value: 30 Brand Name: tamoxife n Send Method: E-Prescr ibed Sub s Allowed: subs OK Speci al Instruct ion: TAKE 1 TABLET EVERY DAY Medi cationGe nericNam e: tamoxife n Not Available Not Available Not Available ipratropi um bromide 0.02 % solution for inhalatio n 06/10 completed Medicati on ID: [id number] D uration Value: 30 Brand Name: ipratrop ium bromide Send Method: E-Prescr ibed Sub s Allowed: subs OK Speci al Instruct ion: INHALE 1 VIAL VIA NEBULZER 3 TIMES A DAY Medi cationGe nericNam e: ipratrop ium bromide Not Available Not Available Not Available amoxicill in 875 mg-potass ium clavulana te 125 mg tablet TAKE 1 TABLET BY MOUTH EVERY 12 HOURS FOR 10 DAYS 02/12 completed Not Available Not Available Not Available neomycin- polymyxin -hydrocor t 3.5 mg-10,000 unit/mL-1 % ear drops,torin p PLACE 4 DROPS INTO THE RIGHT EAR 3 TIMES A DAY FOR 10 DAYS active Not Available Not Available No t Available TobraDex 0.3 %-0.1 % eye drops,torin pension 05/29 completed Medicati on ID: [id number] P rescribe d By Name: MERE Singh nd Name: TobraDex Send Method: E-Prescr ibed Sub s Allowed: subs OK Speci al Instruct ion: 4 drops into both ears BID X 14 days Med icationG enericNa me: TobraDex Not Available Not Available Not Available Ciprodex 0.3 %-0.1 % ear drops,torin pension Instill 4 drop into right ear twice a day as directed 02/12 completed Medicati on ID: [id number] D uration Value: 14 Brand Name: Ciprodex Send Method: E-Prescr ibed Sub s Allowed: subs OK Speci al Instruct ion: x 14 days Med icationG enericNa me: Ciprodex Not Available Not Available Not Available duloxetin e 30 mg capsule,d elayed release PLEASE SEE ATTACHED FOR DETAILED DIRECTIO NS active Not Available Not Available No t Available duloxetin e 60 mg capsule,d elayed release TAKE 1 CAPSULE BY MOUTH EVERY DAY active Not Available Not Available No t Available arformote rol 15 mcg/2 mL solution for nebulizat ion INHALE 2MLS VIA NEBULZAT ION TWICE DAILY 06/10 completed Not Available Not Available Not Available budesonid e 1 mg/2 mL suspensio n for nebulizat ion 06/10 completed Medicati on ID: [id number] D uration Value: 30 Brand Name: budesoni de Send Method: E-Prescr ibed Sub s Allowed: subs OK Speci al Instruct ion: INHALE 1 VIAL VIA NEBULIZE R TWICE DAILY DIRECTED Medicat ionGener icName: budesoni de Not Available Not Available Not Available oxycodone 10 mg tablet PLEASE SEE ATTACHED FOR DETAILED DIRECTIO NS active Not Available Not Available No t Available Vitals Date Recorded Body height Body mass index (BMI) Body weight Provider Name and Address Organization Details Last Updated DateTime 02/19/2025 154.94 cm 33.1 kg/m2 90022.66 g Lora Ceja [place] - [facility] 02/19/2025 09:40:32 Date Recorded Body height Body mass index (BMI) Body weight Provider Name and Address Organization Details Last Updated DateTime 05/03/2025 154.94 cm 35 kg/m2 65906.59 g Jayashree Arredondo [place] - [facility] 05/03/2025 15:05:35 Social History Question Answer Notes LastModified by Organizat ion Details LastModified Time What Type Of Sleeve Baster Do You Use? None Information not available 05/03/2025 Which Illicit Or Recreational Drugs Have You Used? Marijuana Information not available 05/03/2025 When Did You Quit Smoking? 1-5yearssincel astleopoldoette Information not available 05/03/2025 How Many Years Have You Used Illicit Or Recreational Drugs? 20 Information not available 05/03/2025 What Is Your Current Pack Years? 10packyears Information not available 05/03/2025 Do You Have Any Pets? Yes Information not available 05/03/2025 At What Age Did You Start Smoking Tobacco? 17 Information not available 05/03/2025 Are You Passively Exposed To Smoke? No Information no t available 05/03/2025 Are There Any Smokers In Your House? No Information not available 05/03/2025 How Much Tobacco Do You Smoke? 1 PPW Information not available 05/03/2025 How Many Years Have You Smoked Tobacco? 45 Information not available 05/03/2025 Have You Used IV Drugs? No Information not available 05/03/2025 Sex: Unknown Functional Status Question Answer Note LastModified by Organization Details LastModified Time Do you use any illicit or recreational drugs? Yes Information not available 05/03/2025 Do you or have you ever used any other forms of tobacco or nicotine? No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
--- OUTSIDE RECORDS SUMMARY | 2025-07-02 19:42 | XMS_ITS | Patient Health Record ---
Author Organization [facility] Address [address] [place] [address] Care Team Providers Care Leveler Name Role Phone Sravan GREGORY, Geraldo Primary Care Provider [place] Calle Jr Unavailable [phone] Reason For Referral No Information Plan Of Treatment No Information Insurance Providers Payer Name Payer Address Payer Phone Subscriber Number Group Number Insured Name Patient Relationship to Insured Coverage Start Date Coverage End Date MEDICAID OF [facility] [address] [place] [phone] [id number] ALEX CORTES Self - patient is the insured
--- OUTSIDE RECORDS SUMMARY | 2025-07-02 19:42 | XMS_ITS | Clinical Summary ---
Author Organization [facility], Address [address] [place] [address] [place] [address] Phone Care Team Providers Care Marine Meteorologist Name Role Phone John Elizalde DO Primary Care Provider [phone] Allergies No known active allergies Medications budesonide (PULMICORT) 0.25 MG/2ML nebulizer solution INHALE 1 VIA VIA NEBULIZER TWICE DAILY NEEDED 9 Active morphine (MS CONTIN) 60 MG 12 hr tablet Take 60 mg by mouth 2 (two) times a day 9 Active omeprazole (PriLOSEC) [address] capsule Take 20 mg by mouth 2 (two) times a day 9 Active traZODone (DESYREL) 150 MG tablet Take 150 mg by mouth every night 9 Active venlafaxine XR (EFFEXOR-XR) 150 MG 24 hr capsule Take 150 mg by mouth 2 (two) times a day 9 Active docusate sodium (COLACE) 100 MG capsule Take 100 mg by mouth 2 (two) times a day Active LORazepam (ATIVAN) 1 MG tablet Take 1 mg by mouth every 6 (six) hours if needed Active oxyCODONE (ROXICODONE) 5 MG immediate release tablet Take 5 mg by mouth every 4 (four) hours if needed Active amLODIPine (NORVASC) 5 MG tablet TAKE 1 TABLET BY MOUTH EVERY DAY 30 tablet 5 0 Active Active Problems Problem Noted Date Diagnosed Date Chronic kidney disease stage 3 10/14/2019 Impaired glucose tolerance 07/15/2019 Type 2 diabetes mellitus Anemia Essential hypertension Hypothyroidism Immunizations Immunization Administration Dates Next Due Pneumococcal Polysaccharide 09/16/2012 Family History Medical History Relation Comments Lung cancer Father Diabetes Mother Relation Status Comments Father Mother Social History Tobacco Use Types Packs/Day Years Used Date Smoking Tobacco: Some Days Cigarettes Comments Unknown Sex and Gender Information Value Date Recorded Sex Assigned at Not on file Legal Sex Female 4:31 PM EST Gender Identity Not on file Sexual Orientation Not on file Last Filed Vital Signs Vital Sign Reading Time Taken Comments Blood Pressure 116/60 07/15/2019 2:09 PM EST Pulse 116 06/01/2019 12:00 PM EST Temperature - - Respiratory Rate - - Oxygen Saturation - - Inhaled Oxygen Concentration - - Weight 82.1 kg (181 lb) 07/15/2019 2:09 PM EST Height 154.9 cm (5' 1 ) 07/15/2019 2:09 PM EST Body Mass Index 34.2 07/15/2019 2:09 PM EST Plan of Treatment Health Maintenance Due Date Last Done Comments Colorectal Cancer Screening: Annual FOBT 2011 Colorectal Cancer Screening: Colonoscopy 2011 Colorectal Cancer Screening: Sigmoidoscopy 2011 Pneumococcal Vaccine: 50+ Years (2 of 2 - PCV) 09/16/2013 09/16/2012 Diabetes: Ophthalmology Exam 07/14/2019 Diabetes: Pedal Pulse Checked 07/14/2019 Diabetes: Sensory Foot Exam 07/14/2019 Diabetes: Visual Foot Exam 07/14/2019 Diabetes: Hemoglobin A1C 10/14/2019 020, 04/01/2019 Influenza Vaccine (#1) 2025 Pneumococcal Vaccine: Peds ( 0 to 5 Years) and At-Risk Patients (6 to 49 Years) Discontinued 09/16/2012 Hepatitis B Vaccine Aged Out No longe r eligible based on patient's age to complete this topic Procedures Procedure Name Priority Date/Time Associated Diagnosis Comments HEMOGLOBIN A1C Routine 07/15/2019 2:20 PM EST from Last 3 Months or Most Recently Relevant to Health Maintenance Results * Hemoglobin A1c (07/15/2019 2:20 PM EST) Hemoglobin A1C 5.6 (4-6) % [facility] Comment: HEMOGLOBIN A1C(%) GLUCOSE CONTROL INDEX <6% EXCELLENT 6-7% VERY GOOD 7-8% GOOD 8-10% FAIR >10% POOR Hemoglobin (Hb) A1c testing is performed by Alexandra Heather-quant immunoassay. Any cause of shortened erythrocyte survival will reduce exposure of erythrocytes to glucose with a consequent decrease in Hb A1c (%). Testing performed or reported by [facility], a Service of [facility], [address] [place] [id number] Camila Parnell MD, On Air Announcer 07/15/2019 2:20 PM EST 07/15/2019 2:29 PM EST us Elsa [facility] BLOOD ORDERABLES Final Res ult [facility] from Last 3 Months or Most Recently Relevant to Health Maintenance Insurance [place] Care Teams Marine Meteorologist Relationship Specialty Start Date End Date John Elizalde DO [address] [place] [address] PCP - General 05/12/19
--- OUTSIDE RECORDS SUMMARY | 2025-07-02 19:42 | XMS_ITS ---
Author Organization [facility] Prior to 12/05/[address] [place] [address] Care Team Providers Care Doctor Podiatric Medicine Name Role Phone Fide John Primary Care Provider [phone] Active Problems Problem Noted Date Diagnosed Date Malignant neoplasm of upper lobe of right lung 1 2020 Malignant neoplasm of overla pping sites of right breast in female, estrogen receptor positive 12/26/2017 Malignant neoplasm of overlapping sites of laryn x 12/26/2017 Current Oncology Plans No current plan information found. Past Plans ONCOLOGY TREATMENT Plan Name Start Date Discontinue Date Treatment Medications Discontinue Reason Plan Provider Cycles [facility] BCN OP PEMBROLIZUMAB (200 MG) 12/13/2021 08/02/2022 albuterol (PROVENTIL)diphe nhydrAMINE (BENADRYL)EPINEP Hrinefamotidine (PEPCID)hydrocor tisone (SOLU-CORTEF) IVmeperidine (DEMEROL) 25 MG/MLpembrolizum ab (KEYTRUDA) infusionSaline Flush 0.9 %sodium chloride (NS) 0.9 %sodium chloride 0.9% bolus (NS) Not Tolerated Geo Sales MD 3 of 12 cycles started Radiation Treatments * No radiation treatments are documented for this patient in [facility]. Treatments may have been administered in another system.
--- OUTSIDE RECORDS SUMMARY | 2025-07-02 19:42 | XMS_ITS | Clinical Summary ---
Author Organization [facility] Address [address] [place] [address] Phone Care Team Providers Care Self Pay Representative Name Role Phone John Elizalde DO Primary Care Provider [phone] Allergies No known active allergies Medications ALBUTEROL INHL Inhale into the lungs. Active arformoterol tartrate (BROVANA INHL) Inhale into the lungs. Active CLONAZEPAM ORAL Take 5 mg by mouth 3 (three) times a day. Active docusate sodium (COLACE) 100 mg capsule Take 1 capsule (100 mg total) by mouth 2 (two) times a day. 9 Active duloxetine HCl (DULOXETINE ORAL) Take by mouth daily. 60 mg in the morning and 30 evening Active guaiFENesin (MUCINEX) 600 mg 12 hr tablet Take 2 tablets (1,200 mg total) by mouth 2 (two) times a day. Active traZODone (DESYREL) 100 mg tablet Take 1 tablet (100 mg total) by mouth every night at bedtime. Active omeprazole (PriLOSEC) [address] capsule TAKE 1 CAPSULE BY MOUTH EVERY DAY 90 capsule 3 5 Active diphenhydrAMINE-ac etaminophen (TYLENOL PM) 25-500 mg per tablet Take 1 tablet by mouth at bedtime as needed for sleep. Active ibuprofen (ADVIL,MOTRIN) 400 mg tablet Take 1 tablet (400 mg total) by mouth every 6 (six) hours if needed for mild pain or moderate pain. Active ondansetron (ZOFRAN) 8 mg tablet Take 1 tablet (8 mg total) by mouth every 8 (eight) hours if needed for nausea or vomiting. 30 tablet 2 5 Active levothyroxine (SYNTHROID, LEVOTHROID) 100 mcg tablet TAKE 1 TABLET BY MOUTH EVERY DAY IN THE MORNING ON AN EMPTY STOMACH 90 tablet 3 5 Active ibuprofen (ADVIL,MOTRIN) 800 mg tabletIndications: Primary osteoarthritis of right knee TAKE 1 TABLET (800 MG TOTAL) BY MOUTH EVERY 8 HOURS NEEDED FOR MILD OR MODERATE PAIN 90 tablet 5 Active morphine (MS CONTIN) 60 mg 12 hr tablet Take 1 tablet (60 mg total) by mouth 2 (two) times a day. Do not crush, chew, or split. Max Daily Amount: 120 mg 60 tablet 5 026 Active oxyCODONE (ROXICODONE) 10 mg immediate release tablet Take 1-2 tablets (10-20 mg total) by mouth every 4 (four) hours if needed for severe pain. Partial fill allowed Max Daily Amount: 120 mg 240 tablet 5 026 Active morphine (MS CONTIN) 60 mg 12 hr tablet Take 1 tablet (60 mg total) by mouth 2 (two) times a day. Do not crush, chew, or split. Max Daily Amount: 120 mg 60 tablet 5 025 Discontin ued(Reord er) oxyCODONE (ROXICODONE) 10 mg immediate release tablet Take 1-2 tablets (10-20 mg total) by mouth every 4 (four) hours if needed for severe pain. Partial fill allowed Max Daily Amount: 120 mg 240 tablet 5 025 Discontin ued(Reord er) Active Problems Problem Noted Date Diagnosed Date Deafness in right ear 09/01/2024 Other iron deficiency anemias 07/02/2024 Malignant neoplasm of overla pping sites of right breast in female, estrogen receptor positive 03/04/2024 Malignant neoplasm of upper lobe of right lung 1 2020 Malignant neoplasm of overlapping sites of laryn x 12/26/2017 Medical History Medical History Date Comments Depression DX:Depression GERD (gastroesophageal reflux disease) DX:GERD (gastroesophageal reflux disease) Hypertension DX:Hypertension COPD (chronic obstructive pu lmonary disease) ([facility] V24, [facility] V28) DX:COPD (chronic o bstructive pulmonary disease) (HCC) Osteoarthritis DX:Osteoarthriti s Breast cancer ([facility] V24, [facility] V28) DX:Breast cancer (HCC) Laryngeal cancer ([facility] V2 4, [facility] V28) DX:Laryngeal cancer (HCC) Carcinoma larynx ([facility] V2 4, [facility] V28) DX:Carcinoma larynx (HCC) Social History Tobacco Use Types Packs/Day Years Used Date Smoking Tobacco: Some Days Smokeless Tobacco: Never Tobacco Cessation:Ready to Q uit: Not Asked; Counseling Given: Not Answered Alcohol Use Standard Drinks/Week Comments No 0 (1 standard drink = 0.6 oz pur e alcohol) Comments No Sex and Gender Information Value Date Recorded Sex Assigned at Not on file Legal Sex Female 7:46 AM EST Gender Identity Not on file Sexual Orientation Not on file Last Filed Vital Signs Vital Sign Reading Time Taken Comments Blood Pressure 158/93 03/31/2025 3:08 PM EDT Pulse 87 03/31/2025 3:08 PM EDT Temperature 36.9 C (98.4 F) 03/31/2025 3:08 PM EDT Respiratory Rate 14 12/04/2024 1:16 PM EDT Oxygen Saturation 96% 03/31/2025 3:08 PM EDT Inhaled Oxygen Concentration - - Weight 84.4 kg (186 lb) 03/31/2025 3:08 PM EDT Height 154.9 cm (5' 1 ) 03/31/2025 3:08 PM EDT Body Mass Index 35.14 03/31/2025 3:08 PM EDT Plan of Treatment Upcoming Encounters Date Type Department Care Team (Late st Contact Info) Description 07/20/2025 1:45 PM EST Office Visit [facility] Hematology Oncology [address] [place] [address] Geo Sales MD [address] [place] [address] Health Maintenance Due Date Last Done Comments Breast Cancer Screening 1962 Colorectal Cancer Screening: Colonoscopy 1962 Drug Screen 1962 Naloxone Order 1962 Non-Opioid Controlled Substance Agreement 1962 Opioid Substance Agreement 1962 Pain Assessment 1962 Diabetes: Annual Foot Exam 1972 Diabetes: Annual Retina Eye Exam 1972 DTaP,Tdap,and Td Vaccines (1 - Tdap) 1981 Zoster Vaccines (1 of 2) 1981 Cervical Cancer Screening: Pap Smear 1983 RSV Immunization Adult Patients (1 - Risk 50-74 years 1-dose series) 2012 Pneumococcal Vaccine: 50+ Years (3 of 3 - PCV) 07/27/2018 07/27/2017, 09/16/2012, 09/16/2012 COVID-19 Vaccine (3 - Moderna risk series) 2021 07/13/2021, 06/15/2021 HIV Screening 06/10/2022 Hepatitis C Screening 06/10/2022 Lung Cancer Screening (Low Dose CT) 06/10/2022 Social Influencers of Health Screening 06/10/2022 Diabetes: Annual Urine Albumin-Creatinine Ratio (uACR) 05/26/2024 Depression Screening 07/08/2024 Influenza Vaccine (#1) 2025 8, 10/01/2014, 05/28/2013 Diabetes: Blood Sugar Control Test (HGBA1C) 04/22/2025 10/21/2024, 07/15/2019 Diabetes: Annual GFR (Glomerular Filtration Rate) 12/29/2025 12/29/2024, 10/21/2024, 09/25/2024, Additional history exists Hypertension/CHF/CAD Annual BMP Blood Test 12/29/2025 12/29/2024, 10/21/2024, 09/25/2024, Additional history exists Cholesterol Screening (Lipid Panel) 10/21/2029 10/21/2024 HIB Vaccines Aged Out No longer eligi ble based on patient's age to complete this topic HPV Vaccines Aged Out No longer eligi ble based on patient's age to complete this topic Hepatitis A Vaccines Aged Out No long er eligible based on patient's age to complete this topic Hepatitis B Vaccines Aged Out No long er eligible based on patient's age to complete this topic IPV Vaccines Aged Out No longer eligi ble based on patient's age to complete this topic MMR Vaccines Aged Out No longer eligi ble based on patient's age to complete this topic Meningococcal ACWY Vaccine Aged Out N o longer eligible based on patient's age to complete this topic Meningococcal B Vaccine Aged Out No l onger eligible based on patient's age to complete this topic RSV Immunization Patients Under 20 months Aged Out No longer eligible based on patient's age to complete this topic Varicella Vaccines Aged Out No longer eligible based on patient's age to complete this topic Procedures Procedure Name Priority Date/Time Associated Diagnosis Comments COMPREHENSIVE METABOLIC PANEL Routine 12/29/2024 1:54 PM EDT Other iron deficiency anemias HEMOGLOBIN A1C Routine 10/21/2024 1:32 PM EDT Hypothyroidism CKD (chronic kidney disease) stage 3, GFR 30-59 ml/min ([facility] V24, [facility] V28) COPD (chronic obstructive pulmonary disease) ([facility] V24, [facility] V28) Routine general medical examination at a health care facility LIPID PANEL WITH REFLEX TO DIRECT LDL Routine 10/21/2024 1:32 PM EDT Hypothyroidism CKD (chronic kidney disease) stage 3, GFR 30-59 ml/min ([facility] V24, [facility] V28) COPD (chronic obstructive pulmonary disease) ([facility] V24, [facility] V28) Routine general medical examination at a health care facility from Last 3 Months or Most Recently Relevant to Health Maintenance Results * (ABNORMAL) Comprehensive metabolic panel (12/29/2024 1:54 PM EDT) Sodium 138 133 - 145 mmol/L LAB CHEMISTRY METHOD 12/29/2024 5:19 PM EDT [facility] Potassium 3.9 3.5 - 5.5 mmol/L LAB CHEMISTRY METHOD 12/29/2024 5:19 PM EDT [facility] Chloride 101 96 - 110 mmol/L LAB CHEMISTRY METHOD 12/29/2024 5:19 PM EDT [facility] CO2 29 21 - 32 mmol/L LAB CHEMISTRY METHOD 12/29/2024 5:19 PM [facility] Anion Gap 8 3 - 11 LAB CHEMISTRY METHOD 12/29/2024 5:19 PM [facility] Glucose 86 70 - 100 mg/dL LAB CHEMISTRY METHOD 12/29/2024 5:19 PM [facility] BUN 10 5 - 25 mg/dL LAB CHEMISTRY METHOD 12/29/2024 5:19 PM [facility] Creatinine 1.23(H) 0.50 - 1.10 mg/dL LAB CHEMISTRY METHOD 12/29/2024 5:19 PM [facility] eGFR 50(L) >=60 mL/min/1. 73m2 LAB CHEMISTRY METHOD 12/29/2024 5:19 PM [facility] Comment:Calculation based on the Chronic Kidney Disease Epidemiology Collaboration (CKD-EPI) equation refit without adjustment for race. BUN/Creatinine Ratio 8.1 LAB CHEMISTRY METHOD 12/29/2024 5:19 PM [facility] Calcium 8.1(L) 8.5 - 10.5 mg/dL LAB CHEMISTRY METHOD 12/29/2024 5:19 PM [facility] AST (SGOT) 11 10 - 42 unit/L LAB CHEMISTRY METHOD 12/29/2024 5:19 PM [facility] ALT (SGPT) 10 10 - 60 unit/L LAB CHEMISTRY METHOD 12/29/2024 5:19 PM [facility] Alkaline Phosphatase 116 42 - 121 unit/L LAB CHEMISTRY METHOD 12/29/2024 5:19 PM [facility] Total Protein 6.7 6.0 - 8.0 g/dL LAB CHEMISTRY METHOD 12/29/2024 5:19 PM [facility] Albumin 3.0(L) 3.2 - 5.0 g/dL LAB CHEMISTRY METHOD 12/29/2024 5:19 PM EDT [facility] Total Bilirubin 0.3 0.0 - 1.4 mg/dL LAB CHEMISTRY METHOD 12/29/2024 5:19 PM EDT [facility] Blood Venous blood specimen / Unknown Venipuncture / Unknown 12/29/2024 1:54 PM EDT 12/29/2024 4:38 PM EDT us Geo Sales MD LAB BLOOD ORDERABLES Final Result [facility] [address] [place] [address], [place] [phone] * (ABNORMAL) Lipid panel with reflex to direct LDL (10/21/2024 1:32 PM EDT) Cholesterol 227(H) 0 - 200 mg/dL LAB CHEMISTRY METHOD 10/21/2024 10:31 PM [facility] Triglycerides 186(H) 0 - 150 mg/dL LAB CHEMISTRY METHOD 10/21/2024 10:31 PM [facility] HDL 58 >=40 mg/dL LAB CHEMISTRY METHOD 10/21/2024 10:31 PM [facility] LDL Calculated 132(H) 0 - 100 mg/dL LAB CHEMISTRY METHOD 10/21/2024 10:31 PM [facility] VLDL Cholesterol Hipolito 37.2 mg/dL LAB CHEMISTRY METHOD 10/21/2024 10:31 PM [facility] Non HDL Chol. (LDL+VLDL) 169(H) <145 mg/dL LAB CHEMISTRY METHOD 10/21/2024 10:31 PM [facility] Chol/HDL Ratio 3.9 0.0 - 4.4 LAB CHEMISTRY METHOD 10/21/2024 10:31 PM [facility] Blood Venous blood specimen / Unknown Venipuncture / Unknown 10/21/2024 1:32 PM EDT 10/21/2024 1:32 PM EDT [facility] LAB BLOOD ORDERABLES Final Resul t Performing Organization Address City/[facility]/ZIP Co de Phone Number [facility] [address] [place] [address], [place] [phone] * Hemoglobin A1c (10/21/2024 1:32 PM EDT) Hemoglobin A1C 5.9 <6.5 % LAB CHEMISTRY METHOD 10/21/2024 9:05 PM EDT [facility] Mean Bld Glu Estim. 123 mg/dL LAB CHEMISTRY METHOD 10/21/2024 9:05 PM EDT [facility] Blood Venous blood specimen / Unknown Venipuncture / Unknown 10/21/2024 1:32 PM EDT 10/21/2024 1:32 PM EDT [facility] LAB BLOOD ORDERABLES Final Resul t Performing Organization Address City/[facility]/ZIP Co de Phone Number [facility] [address] [place] [address], [place] [phone] from Last 3 Months or Most Recently Relevant to Health Maintenance Insurance MEDICAID - [place] Care Teams Self Pay Representative Relationship Specialty Start Date End Date John Elizalde DO [address] [place] [phone] PCP - General Internal Medicine 02/27/19
--- OUTSIDE RECORDS SUMMARY | 2025-07-02 19:42 | XMS_ITS | Continuity of Care Document ---
Author Organization [place] - [facility], [facility] Address [address] [place] [address] Care Team Providers Care Courseware Developer Name Role Phone RADHA ACEVES Primary Care Provider Assessment Encounter Date Assessment Date Assessment LastModified by Organization Details LastModified Time 06/10/2025 06/10/2025 64-year-old female presents for reevaluation [...] culture results require change in antibiotic coverage. [email or web address] Not available 06/10/2025 16:05:06 Plan of Treatment Reminders Order Date Submit Date Provider Last Modified By Organization Details Last Modified Time Details Appointments None recorded. Lab fungus, culture, unspecified specimen 2024 025 ANNELIESE [facility] (Centralized Electronic Ordering - All Locations), Patient Can Go To The Location Of Their Choice, [id number] 5 04:08:40 culture, bacterial 2024 025 ANNELIESE [facility] (Centralized Electronic Ordering - All Locations), Patient Can Go To The Location Of Their Choice, [id number] 5 04:08:41 Referral None recorded. Procedures None recorded. Surgeries None recorded. Imaging None recorded. Medication Orders neomycin-po lymyxin-hyd rocort 3.5 mg-10,000 unit/mL-1 % ear drops,susp 2024 025 [facility]/Pharmacy #[id number], [address] [facility] [place], [address], 5 16:01:55 Patient TargetsNo targets recorded. Patient InstructionsNo instructions recorded. Reason for Referral None Reported. Problems Name Problem SNOMED Code Status Onset Date Resolution Date Notes Provider Name and Address Organization Details Recorded Time Mixed conductiv e and sensorine ural hearing loss of right ear [id number] 105 Active 2016 Mixed conductiv e and sensorine ural hearing loss, unilatera l, right ear with restricte d hearing on the contralat eral side; Note: Date Diagnosed : 08/14/2016 3:22 PM (H90.A31) Not Available [facility] 4 02:48:52 Central perforati on of right tympanic membrane [id number] 67820 Active 2016 Central perforati on of tympanic membrane, right ear; Note: Date Diagnosed : 08/14/2016 3:44 PM (H72.01) LINA CALI MD [address] [place] [address], [facility] [address] [facility] 5 22:28:00 History of malignant neoplasm of larynx 236091092 Active 2016 Personal history of malignant neoplasm: Larynx; Note: Date Diagnosed : 08/14/2016 4:43 PM (V10.21) Persona l history of malignant neoplasm of larynx; Note: Date Diagnosed : 08/14/2016 4:43 PM (Z85.21) [mapped from ICD9 code: V10.21] Not Available [facility] 4 02:48:56 Sensorine ural hearing loss in left ear 02605326129 109 Active 2016 Sensorine ural hearing loss, unilatera l, left ear, with restricte d hearing on the contralat eral side; Note: Date Diagnosed : 10/11/2016 4:10 PM (H90.A22) LINA CALI MD [address] [facility],[place] [address], [place], [address] , [place] [facility] 5 22:28:00 Dizziness and giddiness 907714816 Active 2016 Dizziness and giddiness ; Note: Date Diagnosed : 10/11/2016 4:29 PM (R42) Not Available [facility] 4 02:48:55 Chronic obstructi ve pulmonary disease 00825836 Active 2016 Chronic obstructi ve airway disease NOS; Note: Date Diagnosed : 10/12/2016 1:30 PM (J44.9) Not Available [facility] 4 02:48:59 Oropharyn geal dysphagia 10219116 Active 2016 Dysphagia , oropharyn geal phase; Note: Date Diagnosed : 10/12/2016 1:30 PM (R13.12) Not Available [facility] 4 02:48:57 Bilateral disorder of Eustachia n tubes 47876606027 83540 Active 2023 LINA CALI MD [address] [facility],[place] [address], [place], [address] , [place] [facility] 4 19:11:01 Otorrhea of right ear 12761096524 57936 Active 2023 LINA CALI MD [address] [place] [address],[place] [address], [place], [address] , [place] [facility] 5 22:28:00 Otorrhea 70438135 Active 2024 CLEO SYLVESTER MD [address] [place] [address],[place] [address], [place], [address] , [place] [facility] 5 09:48:39 Smoker 83673019 Active 2024 LINA CALI MD [address] [place] [address],[place] [address], [place], [address] , [place] [facility] 5 11:50:46 Bilateral hearing loss 30703928 Active 2024 ARTHUR MURDOCK [address] [facility],[place] [address], [place], [address] , [place] [facility] 5 12:08:39 Otorrhea 66252587 Active 2024 LINA CALI MD [address] [facility] [address], [place], [address] , [facility] - [facility] 5 16:05:36 Problem Notes None recorded. Procedures Surgical History Date Name Laterality Status Provider Name and Address Organization Details Recorded Time 5 EAC debris removal with microscope completed LINA CALI MD [address] [facility],[address], [address], [facility] - [facility] 06/10/2025 15:59:33 5 Air & Speech Audio with Tymps - 76225, 14059 & 26343 completed ARTHUR MURDOCK [address] [facility],[address], [address], [facility] - [facility] 04/01/2025 12:07:22 5 EAC debris removal with microscope completed LINA CALI MD [address] [facility],[address], [address], [place] [facility] 04/01/2025 11:46:14 4 Air & Speech Audio with Tymps - 26015, 50459 & 67104 completed RICHARD ARELLNAO MA, CCC-A [address] [facility],[address], [address], [facility] - [facility] 02/13/2024 15:25:53 4 EAC debris removal with microscope completed LINA CALI MD [address] [facility],[address], [address], [facility] - [facility] 02/13/2024 14:28:38 Imaging Results None recorded. Procedure [...] mg tablet 10/03 completed Medicati on ID: [id number] D uration Value: 30 Brand Name: clonazep am Send Method: E-Prescr ibed Sub s Allowed: subs OK Speci al Instruct ion: TAKE 1 TAB IN AM, 1 TAB AT NOON, AND 2 TABS AT BEDTIME Medicati onGeneri cName: clonazep am Not Available Not Available Not Available venlafaxi ne ER 150 mg capsule,e xtended release 24 hr 02/19 completed Medicati on ID: [id number] D uration Value: 30 Brand Name: venlafax ine Send Method: E-Prescr ibed Sub s Allowed: subs OK Speci al Instruct ion: TAKE 1 CAPSULE TWICE A DAY Medi cationGe nericNam e: venlafax ine Not Available Not Available Not Available levothyro xine 100 mcg tablet TAKE 1 TABLET BY MOUTH EVERY DAY IN THE MORNING ON AN EMPTY STOMACH active Not Available Not Available No t Available oxycodone -acetamin ophen 5 mg-325 mg tablet 04/23 completed Medicati on ID: [id number] D uration Value: 30 Reason: () Brand Name: oxycodon e-acetam inophen Send Method: E-Prescr ibed Sub s Allowed: subs OK Speci al Instruct ion: TAKE 2 TABLETS EVERY 6 HOURS NEEDED FOR PAIN Med icationG enericNa me: oxycodon e-acetam inophen Not Available Not Available Not Available ofloxacin 0.3 % ear drops Instill 5 drops twice a day by otic route for 10 days, for right ear. 03/08 completed Not Available Not Available Not Available trazodone 100 mg tablet 02/12 completed Medicati on ID: [id number] D uration Value: 30 Brand Name: trazodon e Send Method: E-Prescr ibed Sub s Allowed: subs OK Speci al Instruct ion: TAKE 1 TABLET AT BEDTIME NEEDED M eddelmytio nGeneric Name: trazodon e Not Available Not Available Not Available morphine ER 100 mg tablet,ex tended release TAKE 1 TABLET BY MOUTH TWICE A DAY DO NOT CRUSH/CH EW OR SPLIT MAX DAILY AMOUNT 200MG 04/01 completed Not Available Not Available Not Available meclizine 25 mg tablet 10/03 completed Medicati on ID: [id number] D uration Value: 7 Brand Name: meclizin e Send Method: E-Prescr ibed Sub s Allowed: subs OK Speci al Instruct ion: TAKE 1 TABLET THREE TIMES DAILY ORALLY FOR 7 DAYS Med icationG enericNa me: meclizin e Not Available Not Available [...] topical solution 02/12 completed Medicati on ID: [id number] D uration Value: 14 Prescri bed By Name: MERE Javier nd Name: clotrima zole Sen d Method: E-Prescr ibed Sub s Allowed: subs OK Speci al Instruct ion: 4 drops to left ear twice a day X 14 days Med icationG enericNa me: clotrima zole Not Available Not Available [...] mg tablet 02/19 completed Medicati on ID: [id number] D uration Value: 30 Brand Name: lorazepa m Send Method: E-Prescr ibed Sub s Allowed: subs OK Speci al Instruct ion: TAKE 1 TABLET TWICE DAILY AND 2 TABLETS AT BEDTIME Medicati onGeneri cName: lorazepa m Not Available Not Available Not Available Cortispor in-TC 3.3 mg-3 mg-10 mg-0.5 mg/mL ear drops,torin pension 4 drop 05/29 completed Medicati on ID: [id number] D uration Value: 14 Prescri bed By Name: MERE Singh nd Name: Cortispo rin-TC S end Method: E-Prescr ibed Sub s Allowed: subs OK Medic ationGen ericName : Cortispo rin-TC Not Available Not Available Not Available tamoxifen 20 mg tablet 10/03 completed Medicati on ID: [id number] D uration Value: 30 Brand Name: tamoxife n Send Method: E-Prescr ibed Sub s Allowed: subs OK Speci al Instruct ion: TAKE 1 TABLET EVERY DAY Medi cationGe nericNam e: tamoxife n Not Available Not Available Not Available ipratropi um bromide 0.02 % solution for inhalatio n 06/10 completed Medicati on ID: [id number] D uration Value: 30 Brand Name: ipratrop [...] drops,torin pension 05/29 completed Medicati on ID: [id number] P rescrijocy d By Name: MERE Singh nd Name: [...] as directed 02/12 completed Medicati on ID: [id number] D uration Value: 14 Brand Name: Ciprodex [...] nebulizat ion 06/10 completed Medicati on ID: [id number] D uration Value: 30 Brand Name: budesoni de Send Method: E-Prescr ibed Sub s Allowed: subs OK Speci al Instruct ion: INHALE 1 VIAL VIA NEBULIZE R TWICE DAILY DIRECTED Medicat ionGener icName: daysi de Not Available Not Available Not Available oxycodone 10 mg tablet PLEASE SEE ATTACHED FOR DETAILED DIRECTIO NS active Not Available Not Available No t Available Vitals None Recorded Social History Question Answer Notes LastModified by Organizat ion Details LastModified Time What Type Of Senior Care Assistant Do You Use? None Information not available 05/03/2025 Which Illicit Or Recreational Drugs Have You Used? Marijuana Information not available 05/03/2025 When Did You Quit Smoking? 1-5yearssincel astcigarette Information not available 05/03/2025 How Many Years [...] LastModified Time Mother Diabetes mellitus 50 78 [email or web address] Not available 10/2024 15:44:39 Medical History Condition Response Tonsil Infections N Emphysema Y Glaucoma N Depression Y COPD Y Nasal or Sinus Problems N Anesthesia Complications N Arthritis Y Hearing Loss Y Cancer Y Stroke N High Cholesterol Y Liver Disease N Headaches Y Fibromyalgia N Speech Delay N Kidney Disease Y Allergies/Hayfever N Heart Problems N Anxiety Y Migraines Y Thyroid Problems N Developmental Delay N Anemia Y Immune System Disorder N Heart Attack (IN) N Other Skin Condition Y Diabetes N Rhinitis N Bleeding Disorder N Food Allergy N Hyperlipidemia N Dementia N Nasal polyps N Asthma Y Sleep Disorder Y GERD/Reflux Y Hypertension N Gynecological HistoryNo gynecological history recorded. Obstetrics History GPAL:G 0 P 0 0 0 0 Past Encounters Encounter ID Performer Location Encounter Start Date Encounter Closed Date Diagnosis/Indication Diagnosis SNOMED-CT Code Diagnosis ICD10 Code Diagnosis IMO Codes Diagnosis Note [id number] LINA CALI MD [facility] [address] [address] 06/10/2025 15:32:28 06/10/2025 16:04:25 Central perforation of right tympanic membrane [id number] 425030 H72.01 Otorrhea of right ear 10 62354693 018653 H92.11 Mixed cond uctive and sensorineural hearing loss of right ear 1302764321 9105 H90.A31 Otorrhea 33604939 H92.11 Health Concerns Section Related Observation LastModified by Organization Detai ls LastModified Time None Recorded Concern Status LastModified by Organization Details LastModified Time None Recorded Payers Encounter Date Sequence Insurance Name Policy Number Policy Hernandez Covered Member ID Hernandez Member ID Guarantor Name 06/10/2025 1 [place] [facility] Harper Goode [id number] Harper Goode Notes Date Note Type Note Provider Name and Address Organization Details Recorded Time 06/10/2025 text/html ROS as noted in the HPI 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 She was noted to have a subtotal right tympanic membrane perforation and underwent a tympanoplasty in the right ear with split thickness skin grafting in [place] [address] Adamson in [place]. Patient has a persistent right-sided tympanic membrane [...] the last few days. LINA CALI MD [address] [place] [address], [place], [address], [facility] - [facility] 06/10/2025 16:06:50 OBGyn Episode No OBEpisode recorded.
--- OUTSIDE RECORDS SUMMARY | 2025-07-02 19:42 | XMS_ITS | Clinical Summary ---
Author Organization [facility] Address [address] [place] [address] [place] [address] Phone Care Team Providers Care Web Retailer Name Role Phone JonahJohn hernandez Primary Care Provider [phone] Allergies No known active allergies Medications * This document contains information received from the source organization and may not represent a complete record from that organization. venlafaxine (EFFEXOR) 100 MG tablet Take 100 mg by mouth 2 (two) times a day. Active albuterol 2.5 mg /3 mL (0.083 %) nebulizer solution Dose: 2.5 MG; Form: Take 3 ML; Route: NEB; Frequency: Q4H PRN SOB; Directions: Not available; Details: Duration: 30 day(s); Dispense: 540 ML(s); Date: 10/04/2012 3 Active LORazepam (ATIVAN) 1 MG tablet Take by mouth 3 (three) times a day. 3 Active docusate sodium (COLACE) 100 MG capsule Take 100 mg by mouth. Once daily 3 Active venlafaxine (EFFEXOR-XR) 150 MG 24 hr capsule Take 150 mg by mouth 2 (two) times a day. 3 Active ipratropium bromide 0.02 % nebulizer solution Dose: 0.5 MG; Form: Take 2.5 ML; Route: NEB; Frequency: TID; Directions: Not available; Details: Duration: 30 day(s); Dispense: 225 ML(s); Date: 10/04/2012 3 Active morphine (MS CONTIN) 100 MG ER tablet 60 mg every 12 (twelve) hours. 3 Active NYSTATIN ORAL Take 5 mL by mouth 2 (two) times a day. 5 Active omeprazole, bulk, 100 % Powd Take 20 mg by mouth 2 (two) times a day. 3 Active budesonide (PULMICORT) 1 mg/2 mL nebulizer solution Take by nebulization 2 (two) times a day. 3 Active tamoxifen (NOLVADEX) 20 MG tablet Take 20 mg by mouth daily. 3 Active traZODone (DESYREL) 100 MG tablet Take 100 mg by mouth nightly. 3 Active omeprazole (PRILOSEC) 20 MG capsule Take 20 mg by mouth 2 (two) times a day. Active oxyCODONE-aceta minophen (PERCOCET) 5-325 mg per tablet Take 1 tablet by mouth every 6 (six) hours as needed. 30 tablet 0 6 Active Additional Information Patient not taking.Reported on 04/11/2023 miscellaneous medical supply Misc Please provide Ousmane tube holders for patient with C32.9. Length of need code; 99 2 each 12 6 Active miscellaneous medical supply Misc Please provide 1 box of 30 humidifier filters per month for patient with C32.9. Length of code; 99. 1 each 12 6 Active miscellaneous medical supply Misc Please provide 1 box of 50 remove wipes per month for patient with C32.9. Length code 99 1 each 12 6 Active miscellaneous medical supply Misc Please provide TacAway wipes 1 box of 50 per month for patient with C32.9. Length code 99. 1 each 12 6 Active nystatin (MYCOSTATIN) 100,000 unit/mL suspension Swish and swallow 5 mL (500,000 Units total) 4 (four) times a day. 473 mL 1 7 Active Additional Information Patient not taking.Reported on 09/01/2020 miscellaneous medical supply Misc Please change TEP; ICD 10: Z93.0 1 each 8 Active cholecalciferol , vitamin D3, (VITAMIN D3 ORAL) Take by mouth. Activ e MULTIVITAMIN ORAL Take by mouth. Activ e sennosides (SENNA ORAL) Take by mouth. Ac tive oxyCODONE HCl 10 mg Tab TAKE 1 TO 2 TABLETS BY MOUTH EVERY 4 HOURS NEEDED FOR PAIN 2 Active levothyroxine (SYNTHROID,LEVO THROID) 25 MCG tablet Take 25 mcg by mouth every morning. Active mupirocin (BACTROBAN) 2 % ointment Apply topically 2 (two) times a day. Apply to exposed neck wound gently twice per day 22 g 3 2 Active Additional Information Patient not taking.Reported on 04/11/2023 clonazePAM, bulk, 100 % Powd Take 5 mg by mouth 3 (three) times a day. Active Active Problems Problem Noted Date Diagnosed Date Perforation of tympanic membrane 12/03/2014 Overview (06/14/2015): Perforation of tympanic membrane Malignant neoplasm of breast 12/03/2014 Overview (06/14/2015): Malignant tumor of breast Chronic obstructive pulmonary disease 12/03/2014 Overview (06/14/2015): Chronic obstructive lung disease Depression 12/03/2014 Overview (06/14/2015): Depressive disorder Anxiety 12/03/2014 Overview (06/14/2015): Anxiety Gastroesophageal reflux disease 12/03/2014 Overview (06/14/2015): Gastroesophageal reflux disease Malignant neoplasm of larynx 01/23/2013 Overview (08/28/2014): Malignant tumor of larynx Immunizations Immunization Administration Dates Next Due Pneumococcal polysaccharide PPSV23 09/16/2012 Family History Medical History Relation Comments Cancer Father Cancer Partner Cancer Paternal Uncle Relation Status Comments Father Partner Paternal Uncle Social History Tobacco Use Types Packs/Day Years Used Date Smoking Tobacco: Former Smokeless Tobacco: Former Tobacco Cessation:Counseling Given: Not Answered Education Answer Date Recorded Are you interested in more education? Not on mikki e 11/01/2022 Are you concerned about learning? Not on file 11/01/2022 No 11/01/2022 No 11/01/2022 Digital Access Answer Date Recorded No 12/03/2022 No 12/03/2022 Reliable internet access at home? Not on file 12/03/2022 Device with a working camera? Not on file Comments Unknown Sex and Gender Information Value Date Recorded Sex Assigned at Not on file Legal Sex Female 7:59 PM EST Gender Identity Not on file Sexual Orientation Not on file Last Filed Vital Signs Vital Sign Reading Time Taken Comments Blood Pressure 136/85 11/28/2015 12:54 PM EDT Pulse 84 11/28/2015 12:00 PM EDT Temperature 36.4 C (97.6 F) 11/28/2015 12:30 PM EDT Respiratory Rate 21 11/28/2015 12:00 PM EDT Oxygen Saturation 96% 11/28/2015 12:54 PM EDT Inhaled Oxygen Concentration - - Weight 83.9 kg (185 lb) 04/11/2023 1:04 PM EDT Height 153.7 cm (5' 0.5 ) 04/11/2023 1:04 PM EDT Body Mass Index 35.54 04/11/2023 1:04 PM EDT Plan of Treatment Health Maintenance Due Date Last Done Comments Adult Td,Tdap Booster 1962 DEPRESSION SCREENING 1974 SMOKING Hx and SMOKELESS TOBACCO SCREENING 1975 HEPATITIS C SCREENING 1980 HIV ONE-TIME SCREENING (18-65 YEARS) 1980 ZOSTER VACCINES (1 of 2) 1981 MAMMOGRAM 2002 COLOGUARD 2007 COLONOSCOPY 2007 COLORECTAL CANCER SCREENING 2007 FIT TEST 2007 FOBT 2007 SIGMOIDOSCOPY 2007 VIRTUAL COLONOSCOPY 2007 RSV VACCINE (1 - Risk 50-74 years 1-dose series) 2012 SCREENING FOR DIABETES 06/13/2016 06/13/2013 PNEUMOCOCCAL VACCINES (50+ years) (3 of 3 - PCV) 07/27/2018 07/27/2017, 09/16/2012 INFLUENZA VACCINE (#1) 2025 8, 10/01/2014, 05/28/2013 COVID-19 VACCINE ( season) 2025 07/13/2021, 06/15/2021 TSH LEVEL 10/21/2025 10/21/2024, 09/06, 06/18/2024, Additional history exists LIPID PANEL 10/21/2029 10/21/2024 HEPATITIS A VACCINES Aged Out No long er eligible based on patient's age to complete this topic HIB VACCINES Aged Out No longer eligi ble based on patient's age to complete this topic MENINGOCOCCAL VACCINES (ACWY) Aged Out No longer eligible based on patient's age to complete this topic MENINGOCOCCAL VACCINES (B) Aged Out N o longer eligible based on patient's age to complete this topic Medical Devices Implanted Type Area Cytology Supervisor Device Identifier Shelf Expiration Date Model / Serial / Lot Vad-11/28/2011 Implanted:2011 (Quantity not on file) Procedures Procedure Name Priority Date/Time Associated Diagnosis Comments THYROID STIMULATING HORMONE (TSH) Routine 03/04/2015 1:06 PM EDT from Last 3 Months or Most Recently Relevant to Health Maintenance Results * TSH (03/04/2015 1:06 PM EDT) TSH 4.36 0.30 - 5.00 UIU/ML [facility] 03/04/2015 1:06 PM EDT 03/04/2015 1:06 PM EDT Edgar Adamson MD, PhD LAB BLOOD [place] [address], [facility] from Last 3 Months or Most Recently Relevant to Health Maintenance Insurance [facility] Care Teams Web Retailer Relationship Specialty Start Date End Date John Elizalde DO [address] [place] [phone] PCP - General Internal Medicine 12/20/20 Additional Source Comments The information contained in this document represents components of the legal health record. It is not the complete legal health record.[facility]
--- OUTSIDE RECORDS SUMMARY | 2025-07-02 19:42 | XMS_ITS | Clinical Summary ---
Author Organization [facility] Prior to 12/05/[address] [place] [address] Care Team Providers Care Communications Equipment Supervisor Name Role Phone John Elizalde DO Primary Care Provider [phone] Allergies No known active allergies Medications Medication Sig Dispensed Refills Start Date End Date Status traZODone (DESYREL) 100 MG tablet Take 1 tablet (100 mg total) by mouth every night at bedtime. 0 Active docusate sodium (COLACE) 100 MG capsule Take 1 capsule (100 mg total) by mouth 2 (two) times a day. 60 capsule 11 08/14/2018 Active guaiFENesin (MUCINEX) 600 MG 12 hr tablet Take 2 tablets (1,200 mg total) by mouth 2 (two) times a day. 0 Active omeprazole (PriLOSEC) 20 MG capsule TAKE 1 CAPSULE BY MOUTH EVERY DAY 90 capsule 3 12/11/2022 Active oxyCODONE (ROXICODONE) 5 MG immediate release tablet Take 2 tablets (10 mg total) by mouth every 4 (four) hours as needed for pain. 240 tablet 0 02/01/2023 Active DULoxetine HCl (CYMBALTA PO) Take by mouth daily. 60 mg in the morning and 30 evening 0 Active CLONAZEPAM PO Take 5 mg by mouth 3 (three) times a day. 0 Active ALBUTEROL IN Inhale into the lungs. 0 Active Arformoterol Tartrate (BROVANA IN) Inhale into the lungs. 0 Active ondansetron (ZOFRAN) 8 MG tablet Take 1 tablet (8 mg total) by mouth every 8 (eight) hours as needed. 30 tablet 2 10/24/2023 Active doxycycline monohydrate (MONODOX) 100 MG capsule Take 1 capsule (100 mg total) by mouth 2 (two) times a day. 28 capsule 0 03/03/2024 Active levothyroxine (SYNTHROID) tablet 100 mcg TAKE 1 TABLET BY MOUTH EVERY MORNING ON AN EMPTY STOMACH. 90 tablet 3 04/13/2024 Active oxyCODONE HCl (ROXICODONE) 10 MG TABS Take 1-2 tablets (10-20 mg total) by mouth every 4 (four) hours as needed for pain. Partial fill allowed 240 tablet 0 04/23/2024 Active Morphine Sulfate ER (MS CONTIN) 100 MG TBCR Take 1 tablet (100 mg total) by mouth every 12 (twelve) hours. 60 tablet 0 04/23/2024 Active Active Problems Problem Noted Date Diagnosed Date Malignant neoplasm of upper lobe of right lung 1 2020 Malignant neoplasm of overla pping sites of right breast in female, estrogen receptor positive 12/26/2017 Malignant neoplasm of overlapping sites of laryn x 12/26/2017 Social History Tobacco Use Types Packs/Day Years Used Date Smoking Tobacco: Some Days Smokeless Tobacco: Never Alcohol Use Standard Drinks/Week Comments No 0 (1 standard drink = 0.6 oz pur e alcohol) Sex and Gender Information Value Date Recorded Sex Assigned at Not on file Gender Identity Not on file Sexual Orientation Not on file Job Start Date Occupation Industry Not on file Not on file Not on file Last Filed Vital Signs Vital Sign Reading Time Taken Comments Blood Pressure 114/89 03/03/2024 1:06 PM EDT Pulse 97 03/03/2024 1:06 PM EDT Temperature 37.2 C (99 F) 03/03/2024 1:06 PM EDT Respiratory Rate 20 01/30/2022 1:07 PM EDT Oxygen Saturation 96% 03/03/2024 1:06 PM EDT Inhaled Oxygen Concentration - - Weight 82.1 kg (181 lb) 03/03/2024 1:06 PM EDT Height 154.9 cm (5' 1 ) 03/03/2024 1:06 PM EDT Body Mass Index 34.2 03/03/2024 1:06 PM EDT Plan of Treatment Health Maintenance Due Date Last Done Comments Hepatitis C Screening 1962 COVID-19 Vaccine (#1) 1967 Depression Screening 1974 BMI Counseling 1980 Preventative Health Evaluation 1980 Tobacco Cessation Counseling 1980 DTap / Tdap / Td (1 - Tdap) 1981 Shingrix-Zoster Vaccine (1 o f 2) 1981 Cervical Cancer Screening (Pap Smear) 1983 Colon Cancer Screening (Colonoscopy) 2007 Breast Cancer Screening (Mammogram) 2012 Pneumococcal Vaccine (3 of 3 - PCV) 07/27/2018 07/27/2017, 09/16/2012 Influenza Vaccine (#1) 2025 8, 10/01/2014, 05/28/2013 RSV Adult > 60+ Yrs or (1 - 1-dose 75+ series) 2037 Hepatitis B Vaccines Aged Out No long er eligible based on patient's age to complete this topic RSV Ped < 20 months Aged Out No longe r eligible based on patient's age to complete this topic Care Teams Communications Equipment Supervisor Relationship Specialty Start Date End Date John Elizalde DO [address] [place] [address] [place] [address] PCP - General Internal Medicine 12/04/19
--- OUTSIDE RECORDS SUMMARY | 2025-07-02 19:42 | XMS_ITS | Continuity of Care Document ---
Author Organization [place] - [facility], [facility] Address [address] [place] [address] Care Team Providers Care Shot Core Drill Operator Name Role Phone RADHA ACEVES Primary Care Provider [phone] Assessment Encounter Date Assessment Date Assessment LastModified by Organization Details LastModified Time 05/03/2025 05/03/2025 64-year-old female presents for reevaluation [...] to 4 months to prevent future infection. [email or web address] Not available 05/03/2025 15:32:41 Plan of Treatment Reminders Order Date Submit Date Provider Last Modified By Organization Details Last Modified Time Details Appointments None record ed. Lab None record ed. Referral None record ed. Procedures None record ed. Surgeries None record ed. Imaging None record ed. Medication Orders None record ed. Patient TargetsNo targets recorded. Patient InstructionsNo instructions recorded. Reason for Referral None Reported. Problems Name Problem SNOMED Code Status Onset Date Resolution Date Notes Provider Name and Address Organization Details Recorded Time Mixed conductiv e and sensorine ural hearing loss of right ear 69332418082 105 Active 2016 Mixed conductiv e and sensorine ural hearing loss, unilatera l, right ear with restricte d hearing on the contralat eral side; Note: Date Diagnosed : 08/14/2016 3:22 PM (H90.A31) Not Available [facility] 4 02:48:52 Central perforati on of right tympanic membrane 58933715747 80594 Active 2016 Central perforati on of tympanic membrane, right ear; Note: Date Diagnosed : 08/14/2016 3:44 PM (H72.01) LINA CLAI MD [address] [place] [address], [place], [address] , [facility] 5 22:28:00 History of malignant neoplasm of larynx 692138154 Active 2016 Personal history of malignant neoplasm: Larynx; Note: Date Diagnosed : 08/14/2016 4:43 PM (V10.21) Persona l history of malignant neoplasm of larynx; Note: Date Diagnosed : 08/14/2016 4:43 PM (Z85.21) [mapped from ICD9 code: V10.21] Not Available [facility] 4 02:48:56 Sensorine ural hearing loss in left ear 83996648052 109 Active 2016 Sensorine ural hearing loss, unilatera l, left ear, with restricte d hearing on the contralat eral side; Note: Date Diagnosed : 10/11/2016 4:10 PM (H90.A22) LINA CALI MD [address] [place] [address], [place], [address] , [facility] 5 22:28:00 Dizziness and giddiness 339199297 Active 2016 Dizziness and giddiness ; Note: Date Diagnosed : 10/11/2016 4:29 PM (R42) Not Available [facility] 4 02:48:55 Chronic obstructi ve pulmonary disease 10175877 Active 2016 Chronic obstructi ve airway disease NOS; Note: Date Diagnosed : 10/12/2016 1:30 PM (J44.9) Not Available [facility] 4 02:48:59 Oropharyn geal dysphagia 27213645 Active 2016 Dysphagia , oropharyn geal phase; Note: Date Diagnosed : 10/12/2016 1:30 PM (R13.12) Not Available [facility] 4 02:48:57 Bilateral disorder of Eustachia n tubes 31197135186 93802 Active 2023 LINA CALI MD [address] [facility],[place] [address], [place], [address] , [facility] 4 19:11:01 Otorrhea of right ear 31513674587 37604 Active 2023 LINA CALI MD [address] [place] [address],[place] [address], [place], [address] , [facility] 5 22:28:00 Otorrhea 88494754 Active 2024 CLEO SYLVESTER MD [address] [place] [address],[place] [address], [place], [address] , [facility] - [facility] 5 09:48:39 Smoker 87297866 Active 2024 LINA CALI MD [address] [place] [address], [place], [address] , [facility] - [facility] 5 11:50:46 Bilateral hearing loss 20155159 Active 2024 ARTHUR MURDOCK [address] [place] [address], [place], [address] , [facility] - [facility] 5 12:08:39 Otorrhea 24302949 Active 2024 LINA CALI MD [address] [place] [address], [place], [address] , [facility] 5 16:05:36 Problem Notes None recorded. Procedures Surgical History Date Name Laterality Status Provider Name and Address Organization Details Recorded Time 5 EAC debris removal with microscope completed LINA CALI MD [address] [place] [address],[place] [address], [place], [address], [facility] - [facility] 06/10/2025 15:59:33 5 Air & Speech Audio with Tymps - 01640, 71432 & 37336 completed ARTHUR MURDOCK [address], [place], [address], [facility] - [facility] 04/01/2025 12:07:22 5 EAC debris removal with microscope completed LINA CALI MD [address] [facility] [address], [place], [address], [facility] - [facility] 04/01/2025 11:46:14 4 Air & Speech Audio with Tymps - 72517, 86009 & 22468 completed RICHARD ARELLANO MA, CCC-A [address], [place], [address], [place] - [facility] 02/13/2024 15:25:53 4 EAC debris removal with microscope completed LINA CALI MD [address] [facility] [address], [place], [address], [facility] - [facility] 02/13/2024 14:28:38 Imaging Results None recorded. Procedure [...] mg tablet 10/03 completed Medicati on ID: [id number] D uration Value: 30 Brand Name: clonazep am Send Method: E-Prescr ibed Sub s Allowed: subs OK Speci al Instruct ion: TAKE 1 TAB IN AM, 1 TAB AT NOON, AND 2 TABS AT BEDTIME Medicati onGeneri cName: clonazep am Not Available Not Available Not Available venlafaxi ne ER 150 mg capsule,e xtended release 24 hr 02/19 completed Medicati on ID: [id number] D uration Value: 30 Brand Name: venlafax [...] mg tablet 04/23 completed Medicati on ID: [id number] D uration Value: 30 Reason: () Brand [...] mg tablet 02/12 completed Medicati on ID: [id number] D uration Value: 30 Brand Name: trazodon [...] mg tablet 10/03 completed Medicati on ID: [id number] D uration Value: 7 Brand Name: meclizin e Send Method: E-Prescr ibed Sub s Allowed: subs OK Speci al Instruct ion: TAKE 1 TABLET THREE TIMES DAILY ORALLY FOR 7 DAYS Med ication [facility] me: meclizin e Not Available Not Available [...] topical solution 02/12 completed Medicati on ID: [id number] D uration Value: 14 Prescri bed By Name: MERE Javier nd Name: clotrima zolmary Mccoy d Method: E-Prescr ibed Sub s Allowed: [...] mg tablet 02/19 completed Medicati on ID: [id number] D uration Value: 30 Brand Name: lorazepa m Send Method: E-Prescr ibed Sub s Allowed: subs OK Speci al Instruct ion: TAKE 1 TABLET TWICE DAILY AND 2 TABLETS AT BEDTIME Medicati onGeneri cName: lorazepa m Not Available Not Available Not Available Cortispor in-TC 3.3 mg-3 mg-10 mg-0.5 mg/mL ear drops,torin pension 4 drop 05/29 completed Medicati on ID: [id number] D uration Value: 14 Prescri bed By Name: MERE Singh nd Name: Cortispo rin-TC S end Method: E-Prescr ibed Sub s Allowed: subs OK Medic ationGen ericName : Cortispo rin-TC Not Available Not Available Not Available tamoxifen 20 mg tablet 10/03 completed Medicati on ID: [id number] D uration Value: 30 Brand Name: tamoxife n Send Method: E-Prescr ibed Sub s Allowed: subs OK Speci al Instruct ion: TAKE 1 TABLET EVERY DAY Medi cationGe nericNam e: tamoxife n Not Available Not Available Not Available ipratropi um bromide 0.02 % solution for inhalatio n 06/10 completed Medicati on ID: [id number] D uration Value: 30 Brand Name: ipratrop [...] drops,torin pension 05/29 completed Medicati on ID: [id number] P rescribe d By Name: MERE Singh [...] as directed 02/12 completed Medicati on ID: [id number] D uration Value: 14 Brand Name: Ciprodex [...] nebulizat ion 06/10 completed Medicati on ID: [id number] D uration Value: 30 Brand Name: budesoni [...] Updated DateTime 05/03/2025 154.94 cm 35 kg/m2 60480.59 g Jayashree Arredondo [place] - [facility] 05/03/2025 15:05:35 Social History Question Answer Notes LastModified by Organizat ion Details LastModified Time What Type Of Dredge Master Do You Use? None Information not available [...] LastModified Time Mother Diabetes mellitus 50 78 [email or web address] Not available 10/2024 15:44:39 Medical History Condition Response Allergies/Hayfever N Heart Problems N Anxiety Y Tonsil Infections N Emphysema Y Migraines Y Thyroid Problems N COPD Y Depression Y Developmental Delay N Glaucoma N Nasal or Sinus Problems N Anemia Y Immune System Disorder N Anesthesia Complications N Heart Attack (DC) N Other Skin Condition Y Diabetes N [...] ICD10 Code Diagnosis IMO Codes Diagnosis Note [id number] JAZZMINE LLANES PA-C [facility] [address] [place] [address] 05/03/2025 14:51:51 05/03/2025 15:17:16 Central perforation of right tympanic membrane 1483087177 004277 H72.01 Otorrhea of right ear 10 80194937 187089 H92.11 Mixed cond uctive and sensorineural hearing loss of right ear 6138626738 9105 H90.A31 Health Concerns Section Related Observation LastModified by Organization Detai ls LastModified Time None Recorded Concern Status LastModified by Organization Details LastModified Time None Recorded Payers Encounter Date Sequence Insurance Name Policy Number Policy Hernandez Covered Member ID Hernandez Member ID Guarantor Name 05/03/2025 1 [place] [facility] Harper Goode [id number] Harper Goode Notes Date Note Type Note Provider Name and Address Organization Details Recorded Time 05/03/2025 text/html ROS as noted in the HPI 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 She was noted to have a subtotal right tympanic membrane perforation and underwent a tympanoplasty in the right ear with split thickness skin grafting in April [address] Adamson in [place]. Patient has a persistent right-sided tympanic membrane [...] last few days. SANCHEZ VICK MD [address], [address], [facility] - [facility] 05/03/2025 15:58:10 OBGyn Episode No OBEpisode recorded.
[2025-07-02 20:04] VITALS: BP 148/85; PULSE 97; RESP 18; TEMP 37.2; O2SAT 95
--- NOTE | 2025-07-02 20:26 | PC.NURSE ---
pt has several complaints, reports ear pain for weeks, given antibiotics by PCP and completed course, does nit feel it is better, reports swelling and tenderness. Pt has another complaint of possible cellulites on R arm, states this happens at least a couple times a year and she feels it is starting now, tenderness, dry itchy skin, mild redness and edema. Pt has full range of upper extremities.
[2025-07-02 22:23] VITALS: BP 144/97; PULSE 88; RESP 20; O2SAT 94
[2025-07-02] MEDS: iohexoL 350 MG/ML 100 ML INFUS..BTL 60 ML IV (23:00)
[2025-07-03 00:37] VITALS: BP 108/56; PULSE 74; RESP 14; TEMP 37.2; O2SAT 97
[2025-07-03] MEDS: vancomycin/NS 2,000 MG/500 ML PLAST..BAG 250 MG IV (02:09)
[2025-07-03 05:03] VITALS: BP 110/53; PULSE 93; RESP 24; TEMP 37.1; O2SAT 93
== END 2025-07-03 05:06 | disposition short-term general hospital (02) ==
PROVIDERS: Physician Assistant; Emergency Provider Student in an Organized Health Care Education/Training Program; PCP Internal Medicine
DX: H70.001 Acute mastoiditis without complications, right ear (principal); R07.9 Chest pain, unspecified; R06.02 Shortness of breath; R00.0 Tachycardia, unspecified; R94.31 Abnormal electrocardiogram [ECG] [EKG]; R06.09 Other forms of dyspnea; R60.0 Localized edema; Z03.818 Encounter for observation for suspected exposure to other biological agents ruled out; I89.0 Lymphedema, not elsewhere classified; I10 Essential (primary) hypertension; K21.9 Gastro-esophageal reflux disease without esophagitis; J44.9 Chronic obstructive pulmonary disease, unspecified; Z85.118 Personal history of other malignant neoplasm of bronchus and lung; Z85.3 Personal history of malignant neoplasm of breast; Z90.13 Acquired absence of bilateral breasts and nipples; Z85.89 Personal history of malignant neoplasm of other organs and systems; Z87.891 Personal history of nicotine dependence
CPT/HCPCS: 36415; 70491; 71046; 80048; 80076; 83605; 83735; 83880; 84484; 85025; 85610; 87040; 87637; 93005; 96365; 96375; 99285; J0696; J3373; Q9967

== ENCOUNTER → 2025-07-02 17:06 | Outpatient (BNV) | payer MEDICAID, SELFPAY | PROVIDERS: Emergency Provider Student in an Organized Health Care Education/Training Program; PCP Internal Medicine; Visit Provider Internal Medicine Cardiovascular Disease | DX: R00.0 Tachycardia, unspecified (principal); I25.2 Old myocardial infarction | CPT/HCPCS: 93010 ==

== ENCOUNTER → 2025-07-02 17:18 | Outpatient (BNV) | payer MEDICAID, SELFPAY | PROVIDERS: PCP Internal Medicine; Visit Provider Radiology Diagnostic Radiology | DX: R06.00 Dyspnea, unspecified (principal) | CPT/HCPCS: 70491; 71046 ==